=== PATIENT | male | born 1950 | race Caucasian/White ===

== ENCOUNTER 2017-05-06 13:13 | Inpatient (IN) | payer MEDICARE ==
[2017-05-06 13:13] VITALS: BMI 29.0
[2017-05-06] MEDS ORDERED: Magnesium Sulfate 2 gm/50 ml 2 GM/50 ML BAG ONE (13:24)
[2017-05-06] MEDS ORDERED: Albuterol-Ipratrop 3 mg / 0.5 (3 ml) UD ONE (13:24)
[2017-05-06] MEDS ORDERED: Albuterol-Ipratrop 3 mg / 0.5 (3 ml) UD INH STA ×2 (13:29→13:31)
[2017-05-06] MEDS: Magnesium Sulfate 2 GM in Sodium Chloride 0.9% 100 ML IVPB ONE ×2 (13:33→13:54)
[2017-05-06 13:39] LABS: BASO # 0.1 K/uL (0.0-0.2); BASO % 1.2 % (0.0-2.0); EOS # 0.7 K/uL (0.0-0.7); EOS % 5.6 % (0.0-4.0); HEMATOCRIT 49.7 % (35.0-51.0); LYMPH # 2.7 K/uL (1.0-4.3); LYMPH % 21.7 % (20.0-40.0); MEAN CELL VOLUME 82.6 fl (80.0-94.0); MEAN CORPUSCULAR HEMOGLOBIN 26.9 pg (27.0-31.0); MEAN CORPUSCULAR HGB CONC 32.6 g/dL (33.0-37.0); MEAN PLATELET VOLUME 10.6 fl (7.2-11.7); MONO # 1.1 K/uL (0.0-0.8); MONO % 8.7 % (0.0-10.0); NEUT # 7.8 K/uL (1.8-7.0); NEUT % 62.8 % (50.0-75.0); RED CELL DISTRIBUTION WIDTH 14.3 % (11.5-14.5); WHITE BLOOD COUNT 12.5 K/uL (4.8-10.8)
[2017-05-06 13:45] LABS: BLOOD UREA NITROGEN 22 mg/dl (9-20); CALCIUM 9.7 mg/dL (8.4-10.2); CARBON DIOXIDE 27 mmol/L (22-30); CHLORIDE 102 mmol/L (98-107); GFR AFRICAN-AMERICAN > 60; GLUCOSE,RANDOM 176 mg/dL (75-110); POTASSIUM 3.7 MMOL/L (3.6-5.0); SODIUM 143 mmol/l (132-148)
[2017-05-06] MEDS ORDERED: Magnesium Sulfate 2 gm/50 ml 2 GM/50 ML BAG IVPB ONE (13:45)
[2017-05-06 13:47] LABS: ABG ALLEN TEST YES; ARTERIAL BLOOD GAS HCO3 27.7 mmol/L (21-28); ARTERIAL BLOOD GAS O2 CAPACITY 22.5 mL/dL (16-24); ARTERIAL BLOOD GAS O2 CONTENT 22.4 ML/dL (15-23); ARTERIAL BLOOD GAS PH 7.38 (7.35-7.45); ARTERIAL BLOOD GAS PO2 184 mm/Hg (80-100); ARTERIAL BLOOD HGB O2 SAT 94.6 % (95.0-98.0); CARBOXYHEMOGLOBIN 2.2 % (0.5-1.5); HHB 0.5 % (0.0-5.0); METHEMOGLOBIN 2.7 % (0.0-3.0)
--- NOTE | 2017-05-06 13:48 | ED PDOC ---
HPI: SOB/CHF/COPD Time Seen by Provider: 05/06/17 13:18 Chief Complaint (Nursing): Shortness Of Breath Chief Complaint (Provider): Shortness of breath History Per: Patient History/Exam Limitations: no limitations Onset/Duration Of Symptoms: Worse Since (05/05/17 night) Associated Symptoms: denies: Fever Additional Complaint(s): Patient is a 66 y/o male with a past medical history of asthma, hypertension, diabetes, and hypercholesterolemia brought to the emergency department by EMS for shortness of breath and wheezing with associated cough that has worsened since last night with no alleviation of symptoms via nebulizer. Reports multiple prior hospital admissions for asthma but was never intubated. Denies fever or other complaints. PCP: Dr. Doan ([facility]) Past Medical History Reviewed: Historical Data, Nursing Documentation, Vital Signs Vital Signs: Last Vital Signs Temp 98.1 F 05/06/17 14:30 Pulse 137 H 05/06/17 14:29 Resp 24 05/06/17 13:55 BP 127/82 05/06/17 13:55 Pulse Ox 98 05/06/17 13:55 - Medical History PMH: Asthma, Diabetes, HTN, Hypercholesterolemia Denies: Chronic Kidney Disease - Surgical History Surgical History: No Surg Hx - Family History Family History: States: Unknown Family Hx - Social History Current smoker - smoking cessation education provided: No Ex-Smoker (has not smoked in the last 12 months): No Alcohol: None Drugs: Denies - Home Medications Home Medications: Ambulatory Orders Medication Instructions Recorded Albuterol 0.083% [Albuterol 0.083% 3 ml IH Q6H PRN #30 neb 03/18/16 Inhal Dary (2.5 mg/3 ml) UD] Albuterol HFA [Ventolin HFA 90 2 puff IH [id number] PRN #1 bottle 03/18/16 mcg/actuation (8 g)] predniSONE [predniSONE Tab] 50 mg PO DAILY #9 tab 04/26/16 Mometasone/Formoterol [Dulera 200 1 puff IH Q12H 04/28/16 Mcg/5 Mcg Inhaler] Ibuprofen 600 mg PO Q8H PRN #0 tab 05/01/16 - Allergies Allergies/Adverse Reactions: Allergies Allergy/AdvReac Type Severity Reaction Status Date / Time Penicillins Allergy RASH Verified 04/28/16 13:44 Review of Systems ROS Statement: Except As Marked, All Systems Reviewed And Found Negative Constitutional: Negative for: Fever Respiratory: Positive for: Cough, Shortness of Breath, Wheezing Physical Exam - Reviewed Nursing Documentation Reviewed: Yes Vital Signs Reviewed: Yes - Physical Exam Appears: Positive for: Non-toxic, Uncomfortable, In Acute Distress Head Exam: Positive for: ATRAUMATIC, NORMAL INSPECTION, NORMOCEPHALIC Skin: Positive for: Normal Color, Warm, Dry Eye Exam: Positive for: Normal appearance Neck: Positive for: Normal, Painless ROM, Supple Cardiovascular/Chest: Positive for: Tachycardia. Negative for: Murmur Respiratory: Positive for: Accessory Muscle Use, Wheezing (bilateral and diffuse ), Respiratory Distress, Other (tachypnea) Gastrointestinal/Abdominal: Positive for: Normal Exam, Soft. Negative for: Tenderness Extremity: Positive for: Normal ROM Neurologic/Psych: Positive for: Alert, Oriented (x3) - Laboratory Results Result Diagrams: 05/06/17 13:30 05/06/17 13:30 - ECG ECG Rhythm: Positive for: Normal QRS, Normal ST Segment, Sinus Tachycardia. Negative for: ST/T Changes Rate: 137 - Critical Care Total Time (In Min): 30 Nebulizer Treatments/Peak Flow - Duonebs Number of Bronchodilator Doses given?: 2 - Steroid Treatment Steroid: IV - Clinical Response Clinical Response: Improved Medical Decision Making Medical Decision Making: Time: 13:28 Initial Impression: Asthma exacerbation Differential diagnoses include but not limited to congestive heart failure and acute coronary syndrome. Rule out pneumonia. Initial plan: Labs EKG Chest X-Ray Duoneb 3 ml INH Magnesium Sulfate 2 gm Peak flow evaluation Reevaluation 14:00 Spoke with RADIATOR TESTER Braden Up who agrees to admit patient to observation. Scribe Attestation: Documented by Faviola Su, acting as a scribe for Julien Buchanan MD. Provider Scribe Attestation: All medical record entries made by the Scribe were at my direction and personally dictated by me. I have reviewed the chart and agree that the record accurately reflects my personal performance of the history, physical exam, medical decision making, and the department course for this patient. I have also personally directed, reviewed, and agree with the discharge instructions and disposition. Disposition - Clinical Impression Clinical Impression: Asthma exacerbation - Patient ED Disposition Is Patient to be Admitted: Yes Discussed With DrEmelia: Braden Up Doctor Will See Patient In The: Hospital Counseled Patient/Family Regarding: Studies Performed, Diagnosis - Disposition Disposition Time: 14:00 Condition: FAIR - Pt Status Changed To: Hospital Disposition Of: Observation - POA Present On Arrival: Poor Glycemic Control
--- NOTE | 2017-05-06 15:05 | RAD ---
PROCEDURE: CHEST RADIOGRAPH, 1 VIEW HISTORY: SOB COMPARISON: Comparison chest dated 04/28/2016. FINDINGS: LUNGS: Minor bibasilar atelectasis or scarring. PLEURA: No pneumothorax or pleural fluid seen. CARDIOVASCULAR: Normal. OSSEOUS STRUCTURES: No significant abnormalities. VISUALIZED UPPER ABDOMEN: Normal. OTHER FINDINGS: None. IMPRESSION: Minor bibasilar atelectasis or scarring.
[2017-05-06] MEDS: Albuterol 0.083% Inhal Sol (2.5 mg/3 mL) UD IH SCH ×2 (20:04→23:53)
[2017-05-06] MEDS: Fluticasone-Salmeterol 250-50mcg Diskus IH SCH (21:32)
[2017-05-06] MEDS: methylPREDNISolone 60 MG in Sodium Chloride 0.9% 50 ML IVPB SCH (21:32)
--- NOTE | 2017-05-06 22:34 | CARD ---
APPROVED REPORT EKG Measurement Heart [id number] <Conclusion> Sinus tachycardia Otherwise normal ECG
[2017-05-07] MEDS: Albuterol 0.083% Inhal Sol (2.5 mg/3 mL) UD IH SCH ×6 (05:00→23:31)
[2017-05-07 07:41] LABS: ALKALINE PHOSPHATASE 86 U/L (38-126); ALT/SGPT 29 U/L (21-72); AST/SGOT 24 U/L (17-59); BILIRUBIN,TOTAL 0.4 mg/dl (0.2-1.3); BLOOD UREA NITROGEN 33 mg/dl (9-20); CALCIUM 9.3 mg/dL (8.4-10.2); CARBON DIOXIDE 30 mmol/L (22-30); CHLORIDE 97 mmol/L (98-107); GFR AFRICAN-AMERICAN > 60; GLUCOSE,RANDOM 245 mg/dL (75-110); POTASSIUM 3.5 MMOL/L (3.6-5.0); SODIUM 138 mmol/l (132-148); TOTAL PROTEIN 7.8 G/DL (6.3-8.2)
[2017-05-07 08:00] LABS: BASO % 0.1 % (0.0-2.0); HEMATOCRIT 45.1 % (35.0-51.0); LYMPH # 0.9 K/uL (1.0-4.3); LYMPH % 6.8 % (20.0-40.0); MEAN CELL VOLUME 82.3 fl (80.0-94.0); MEAN CORPUSCULAR HEMOGLOBIN 26.4 pg (27.0-31.0); MEAN PLATELET VOLUME 10.8 fl (7.2-11.7); MONO # 0.6 K/uL (0.0-0.8); MONO % 4.8 % (0.0-10.0); NEUT % 88.3 % (50.0-75.0); PLATELET COUNT 201 K/uL (130-400); WHITE BLOOD COUNT 12.5 K/uL (4.8-10.8)
[2017-05-07] MEDS: Fluticasone-Salmeterol 250-50mcg Diskus IH SCH ×2 (08:54→21:46)
[2017-05-07] MEDS: Pravastatin Sodium 20 MG TAB PO SCH (08:55)
[2017-05-07] MEDS: methylPREDNISolone 60 MG in Sodium Chloride 0.9% 50 ML IVPB SCH ×2 (08:55→21:47)
[2017-05-07] MEDS: ATENOLOL PO SCH (08:55)
[2017-05-07] MEDS: CHLORTHALIDONE PO SCH (08:55)
[2017-05-07 10:42] LABS: BASOPHIL 1 % (0-2); NEUTROPHIL 94 % (42-75); TOTAL CELLS COUNTED 100
[2017-05-07] MEDS ORDERED: Potassium Chloride 20 mEq ER Tab PO ONE (10:45)
--- NOTE | 2017-05-07 10:51 | CP.PCM.HP ---
History of Present Illness - History of Present Illness History of Present Illness: pt comfortable at present, admitted of asthma exacerbation yesterday. states had s/s x 3-4 days [employer]. did not see pmd. still w/ exp wheezing at present, less chest throat tightness at present. bw noted. glucose and wbc elevated likely from steroids reported weight loss noted. pt had recent psa in office. Present on Admission - Present on Admission Any Indicators Present on Admission: Yes History of Uncontrolled Diabetes: Yes Review of Systems - Respiratory Respiratory: As Per HPI, Dyspnea on Exertion, Wheezing Past Patient History - Infectious Disease Hx of Infectious Diseases: None - Past Medical History & Family History Past Medical History?: Yes - Past Social History Smoking Status: Never Smoked - CARDIAC Hx Hypercholesterolemia: Yes Hx Hypertension: Yes - PULMONARY Hx Asthma: Yes - NEUROLOGICAL Hx Neurological Disorder: No - HEENT Hx HEENT Problems: No - RENAL Hx Chronic Kidney Disease: No - ENDOCRINE/METABOLIC Hx Diabetes Mellitus Type 2: Yes - HEMATOLOGICAL/ONCOLOGICAL Hx Blood Disorders: No - INTEGUMENTARY Hx Dermatological Problems: No - MUSCULOSKELETAL/RHEUMATOLOGICAL Hx Musculoskeletal Disorders: No Hx Falls: Yes (SYNCOPAL EPISODE TODAY) Other/Comment: last year fell at home head injury/sutures - GASTROINTESTINAL Hx Gastrointestinal Disorders: No - GENITOURINARY/GYNECOLOGICAL Hx Genitourinary Disorders: No - PSYCHIATRIC Hx Psychophysiologic Disorder: No Hx Substance Use: No - SURGICAL HISTORY Hx Surgeries: No - ANESTHESIA Hx Anesthesia: No Hx Anesthesia Reactions: No Hx Malignant Hyperthermia: No Has any member of the family had a problem w/ anesthesia?: No Meds Allergies/Adverse Reactions: Allergies Allergy/AdvReac Type Severity Reaction Status Date / Time Penicillins Allergy RASH Verified 04/28/16 13:44 Physical Exam - Constitutional Appears: Well, Non-toxic, No Acute Distress - Head Exam Head Exam: ATRAUMATIC, NORMAL INSPECTION, NORMOCEPHALIC - Eye Exam Eye Exam: EOMI, Normal appearance, PERRL Pupil Exam: NORMAL ACCOMODATION, PERRL - ENT Exam ENT Exam: Mucous Membranes Moist, Normal Exam - Neck Exam Neck exam: Positive for: Normal Inspection - Respiratory Exam Respiratory Exam: Wheezes, NORMAL BREATHING PATTERN - Cardiovascular Exam Cardiovascular Exam: REGULAR RHYTHM, RRR, +S1, +S2 - GI/Abdominal Exam GI & Abdominal Exam: Normal Bowel Sounds, Soft. absent: Tenderness - Extremities Exam Extremities exam: Positive for: full ROM, normal capillary refill, normal inspection, pedal pulses present - Back Exam Back exam: NORMAL INSPECTION - Neurological Exam Neurological exam: Alert, CN II-XII Intact, Normal Gait, Oriented x3, Reflexes Normal - Psychiatric Exam Psychiatric exam: Normal Affect, Normal Mood - Skin Skin Exam: Dry, Intact, Normal Color, Warm Results - Vital Signs Recent Vital Signs: Last Vital Signs Temp 98.1 F 05/07/17 08:00 Pulse 94 H 05/07/17 08:00 Resp 18 05/07/17 08:00 BP 125/78 05/07/17 08:00 Pulse Ox 96 05/07/17 08:00 - Labs Result Diagrams: 05/07/17 05:30 05/07/17 05:30 Labs: Laboratory Results - last 24 hr 05/07/17 05/07/17 05/07/17 05:30 05:30 05:33 WBC 12.5 H RBC 5.47 Hgb 14.4 Hct 45.1 MCV 82.3 MCH 26.4 L MCHC 32.0 L RDW 14.0 Plt Count 201 MPV 10.8 Neut % (Auto) 88.3 H Lymph % (Auto) 6.8 L [place] % (Auto) 4.8 Eos % (Auto) 0.0 Baso % (Auto) 0.1 Neut # 11.0 H Lymph # 0.9 L [place] # 0.6 Eos # 0.0 Baso # 0.0 Neutrophils % (Manual) 94 H Band Neutrophils % 1 Lymphocytes % (Manual) 2 L Monocytes % (Manual) 2 Basophils % (Manual) 1 Platelet Estimate Normal RBC Morphology Normal Sodium 138 Potassium 3.5 L Chloride 97 L Carbon Dioxide 30 Anion Gap 15 BUN 33 H Creatinine 1.1 Est GFR ( Amer) > 60 Est GFR (Non-Af Amer) > 60 POC Glucose (mg/dL) 245 H Random Glucose 245 H Calcium 9.3 Total Bilirubin 0.4 AST 24 ALT 29 Alkaline Phosphatase 86 Total Protein 7.8 Albumin 3.9 Globulin 3.9 Albumin/Globulin Ratio 1.0 Assessment & Plan (1) Asthma exacerbation Assessment and Plan: albuterol solumedrol given mag in er cont dulera tele obs Status: Acute (2) DVT prophylaxis Assessment and Plan: scd and ae hose ambulation Status: Acute (3) DM2 (diabetes mellitus, type 2) Assessment and Plan: fsbg, home meds elevated glucose likely from steroids Status: Chronic (4) Weight loss Assessment and Plan: recent psa wnl, outpt gi consult. will monitor Status: Acute Decision To Admit - Pt Status Changed To: Hospital Disposition Of: Observation - . Bed Request Type: Telemetry Admitting Physician: Kalia Doan
[2017-05-08] MEDS: Albuterol 0.083% Inhal Sol (2.5 mg/3 mL) UD IH SCH ×5 (03:16→19:25)
[2017-05-08 07:15] LABS: BASO % 0.1 % (0.0-2.0); LYMPH % 5.4 % (20.0-40.0); MEAN CELL VOLUME 82.3 fl (80.0-94.0); MEAN CORPUSCULAR HEMOGLOBIN 26.4 pg (27.0-31.0); MEAN PLATELET VOLUME 10.7 fl (7.2-11.7); MONO # 0.7 K/uL (0.0-0.8); NEUT # 16.6 K/uL (1.8-7.0); NEUT % 90.5 % (50.0-75.0); PLATELET COUNT 199 K/uL (130-400); RED CELL DISTRIBUTION WIDTH 13.9 % (11.5-14.5); WHITE BLOOD COUNT 18.3 K/uL (4.8-10.8)
[2017-05-08 07:20] LABS: ALKALINE PHOSPHATASE 80 U/L (38-126); ALT/SGPT 30 U/L (21-72); AST/SGOT 23 U/L (17-59); BILIRUBIN,TOTAL 0.4 mg/dl (0.2-1.3); BLOOD UREA NITROGEN 37 mg/dl (9-20); CALCIUM 9.2 mg/dL (8.4-10.2); CARBON DIOXIDE 28 mmol/L (22-30); CHLORIDE 99 mmol/L (98-107); GFR AFRICAN-AMERICAN > 60; GLUCOSE,RANDOM 245 mg/dL (75-110); POTASSIUM 4.4 MMOL/L (3.6-5.0); SODIUM 136 mmol/l (132-148); TOTAL PROTEIN 7.3 G/DL (6.3-8.2)
--- NOTE | 2017-05-08 07:57 | CP.PCM.PN ---
Subjective - Date & Time of Evaluation Date of Evaluation: 05/08/17 Time of Evaluation: 07:55 - Subjective Subjective: pt comfortable in bed. no distress. nof /c, n/v/d. less wheezing/chest tightness. elev wbc likely r/t steroids. Objective - Vital Signs/Intake and Output Vital Signs (last 24 hours): Temp Pulse Resp BP Pulse Ox 97.8 F 86 20 104/68 95 05/08/17 05:04 05/08/17 05:04 05/08/17 05:04 05/08/17 05:04 05/08/17 05:04 - Medications Medications: Current Medications Albuterol Sulfate (Albuterol 0.083% Inhal Dary (2.5 Mg/3 Ml) Ud) 2.5 mg IH RQ4 [facility] Last Admin: 05/08/17 07:47 Dose: 2.5 mg Home Med (Atenolol/Chlorthalidone [Atenolol-Chlorthalidone 50-25]) 50.25 mg PO DAILY [facility] Last Admin: 05/07/17 08:55 Dose: 50.25 mg Methylprednisolone 60 mg/ (Sodium Chloride) 50 mls @ 100 mls/hr IVPB Q12 [facility] Last Admin: 05/07/17 21:47 Dose: 100 mls/hr Metformin HCl (Glucophage) 500 mg PO DAILY [facility] Last Admin: 05/07/17 08:55 Dose: 500 mg Pravastatin Sodium (Pravachol) 20 mg PO DAILY [facility] Last Admin: 05/07/17 08:55 Dose: 20 mg Fluticasone/Salmeterol (Advair Diskus 250/50) 1 puff IH Q12H [facility] Last Admin: 05/07/17 21:46 Dose: 1 puff - Labs Labs: 05/08/17 07:05 05/08/17 07:05 - Constitutional Appears: Well, Non-toxic, No Acute Distress - Head Exam Head Exam: ATRAUMATIC, NORMAL INSPECTION, NORMOCEPHALIC - Eye Exam Eye Exam: EOMI, Normal appearance, PERRL Pupil Exam: NORMAL ACCOMODATION, PERRL - ENT Exam ENT Exam: Mucous Membranes Moist, Normal Exam - Neck Exam Neck Exam: Full ROM, Normal Inspection. absent: Lymphadenopathy - Respiratory Exam Respiratory Exam: Wheezes, NORMAL BREATHING PATTERN Additional comments: better airation - Cardiovascular Exam Cardiovascular Exam: REGULAR RHYTHM, RRR, +S1, +S2. absent: Murmur - GI/Abdominal Exam GI & Abdominal Exam: Soft, Normal Bowel Sounds. absent: Tenderness - Extremities Exam Extremities Exam: Full ROM, Normal Capillary Refill, Normal Inspection. absent : Joint Swelling, Pedal Edema - Back Exam Back Exam: NORMAL INSPECTION - Neurological Exam Neurological Exam: Alert, Awake, CN II-XII Intact, Normal Gait, Oriented x3 - Psychiatric Exam Psychiatric exam: Normal Affect, Normal Mood - Skin Skin Exam: Dry, Intact, Normal Color, Warm Assessment and Plan (1) Asthma exacerbation Assessment & Plan: cont albuterol steroids ?? dc today Status: Acute (2) DVT prophylaxis Assessment & Plan: scda nda e hose ambulation Status: Acute (3) DM2 (diabetes mellitus, type 2) Assessment & Plan: fsbg, home meds hold insulin for now as pt is naive, likely elev glucose from steroids Status: Chronic (4) Weight loss Assessment & Plan: outpt f/u Status: Acute
[2017-05-08 08:43] LABS: NEUTROPHIL 92 % (42-75); TOTAL CELLS COUNTED 100
[2017-05-08 08:44] LABS: LARGE PLATELETS PRESENT
[2017-05-08] MEDS: Fluticasone-Salmeterol 250-50mcg Diskus IH SCH ×2 (09:11→22:00)
[2017-05-08] MEDS: ATENOLOL PO SCH (09:12)
[2017-05-08] MEDS: CHLORTHALIDONE PO SCH (09:12)
[2017-05-08] MEDS: methylPREDNISolone 60 MG in Sodium Chloride 0.9% 50 ML IVPB SCH ×2 (09:12→22:09)
[2017-05-08] MEDS: Pravastatin Sodium 20 MG TAB PO SCH (09:12)
[2017-05-09] MEDS: Albuterol 0.083% Inhal Sol (2.5 mg/3 mL) UD IH SCH ×4 (00:37→11:01)
[2017-05-09 04:59] VITALS: RESP 18
--- NOTE | 2017-05-09 08:21 | CP.PCM.PN ---
Subjective - Date & Time of Evaluation Date of Evaluation: 05/09/17 Time of Evaluation: 08:20 - Subjective Subjective: pt doing well in bed, comfortable at rest. still w/ mild tightness in throat. no f/c, n/v/d. no wheezing today. mild dyspnea on exertion yesterday Objective - Vital Signs/Intake and Output Vital Signs (last 24 hours): Temp Pulse Resp BP Pulse Ox 97.9 F 69 18 99/54 L 98 05/09/17 04:59 05/09/17 04:59 05/09/17 04:59 05/09/17 04:59 05/09/17 04:59 Intake and Output: 05/09/17 05/09/17 06:59 18:59 Output Total 300 Balance -300 - Medications Medications: Current Medications Albuterol Sulfate (Albuterol 0.083% Inhal Dary (2.5 Mg/3 Ml) Ud) 2.5 mg IH RQ4 [facility] Last Admin: 05/09/17 08:10 Dose: 2.5 mg Home Med (Atenolol/Chlorthalidone [Atenolol-Chlorthalidone 50-25]) 50.25 mg PO DAILY [facility] Last Admin: 05/08/17 09:12 Dose: 50.25 mg Methylprednisolone 60 mg/ (Sodium Chloride) 50 mls @ 100 mls/hr IVPB Q12 [facility] Last Admin: 05/08/17 22:09 Dose: 100 mls/hr Metformin HCl (Glucophage) 500 mg PO DAILY [facility] Last Admin: 05/08/17 09:12 Dose: 500 mg Pravastatin Sodium (Pravachol) 20 mg PO DAILY [facility] Last Admin: 05/08/17 09:12 Dose: 20 mg Fluticasone/Salmeterol (Advair Diskus 250/50) 1 puff IH Q12H [facility] Last Admin: 05/08/17 22:00 Dose: 1 puff - Labs Labs: 05/08/17 07:05 05/08/17 07:05 - Constitutional Appears: Well, Non-toxic, No Acute Distress - Head Exam Head Exam: ATRAUMATIC, NORMAL INSPECTION, NORMOCEPHALIC - Eye Exam Eye Exam: EOMI, Normal appearance, PERRL Pupil Exam: NORMAL ACCOMODATION, PERRL - ENT Exam ENT Exam: Mucous Membranes Moist, Normal Exam - Neck Exam Neck Exam: Full ROM, Normal Inspection. absent: Lymphadenopathy - Respiratory Exam Respiratory Exam: Clear to Ausculation Bilateral, NORMAL BREATHING PATTERN - Cardiovascular Exam Cardiovascular Exam: REGULAR RHYTHM, RRR, +S1, +S2. absent: Murmur - GI/Abdominal Exam GI & Abdominal Exam: Soft, Normal Bowel Sounds. absent: Tenderness - Extremities Exam Extremities Exam: Full ROM, Normal Capillary Refill, Normal Inspection. absent : Joint Swelling, Pedal Edema - Back Exam Back Exam: NORMAL INSPECTION - Neurological Exam Neurological Exam: Alert, Awake, CN II-XII Intact, Normal Gait, Oriented x3 - Psychiatric Exam Psychiatric exam: Normal Affect, Normal Mood - Skin Skin Exam: Dry, Intact, Normal Color, Warm Assessment and Plan (1) Asthma exacerbation Status: Acute (2) DVT prophylaxis Status: Acute (3) DM2 (diabetes mellitus, type 2) Status: Chronic (4) Weight loss Status: Acute - Assessment and Plan (Free Text) Assessment: (1) Asthma exacerbation Assessment & Plan: cont albuterol steroids ?? dc today Status: Acute (2) DVT prophylaxis Assessment & Plan: scda nda e hose ambulation Status: Acute (3) DM2 (diabetes mellitus, type 2) Assessment & Plan: fsbg, home meds hold insulin for now as pt is naive, likely elev glucose from steroids Status: Chronic (4) Weight loss Assessment & Plan: outpt f/u Status: Acute dc if exercise tolerant
[2017-05-09] MEDS: Fluticasone-Salmeterol 250-50mcg Diskus IH SCH (08:38)
[2017-05-09] MEDS: ATENOLOL PO SCH (08:38)
[2017-05-09] MEDS: Pravastatin Sodium 20 MG TAB PO SCH (08:38)
[2017-05-09] MEDS: CHLORTHALIDONE PO SCH (08:38)
[2017-05-09] MEDS: methylPREDNISolone 60 MG in Sodium Chloride 0.9% 50 ML IVPB SCH (08:39)
[2017-05-09 09:03] LABS: BASO % 0.1 % (0.0-2.0); HEMATOCRIT 45.4 % (35.0-51.0); LYMPH # 1.2 K/uL (1.0-4.3); LYMPH % 8.2 % (20.0-40.0); MEAN CELL VOLUME 82.1 fl (80.0-94.0); MEAN CORPUSCULAR HEMOGLOBIN 26.3 pg (27.0-31.0); MEAN CORPUSCULAR HGB CONC 32.1 g/dL (33.0-37.0); MONO # 0.9 K/uL (0.0-0.8); MONO % 6.2 % (0.0-10.0); NEUT # 12.5 K/uL (1.8-7.0); NEUT % 85.5 % (50.0-75.0); RED CELL DISTRIBUTION WIDTH 13.8 % (11.5-14.5); WHITE BLOOD COUNT 14.7 K/uL (4.8-10.8)
[2017-05-09 09:20] LABS: BLOOD UREA NITROGEN 26 mg/dl (9-20); CARBON DIOXIDE 28 mmol/L (22-30); CHLORIDE 96 mmol/L (98-107); GLUCOSE,RANDOM 239 mg/dL (75-110)
[2017-05-09 09:21] LABS: BILIRUBIN,TOTAL 0.5 mg/dl (0.2-1.3); CALCIUM 9.2 mg/dL (8.4-10.2); TOTAL PROTEIN 7.2 G/DL (6.3-8.2)
[2017-05-09 09:39] LABS: ALB/GLOB RATIO 1.1 (1.0-2.1); ALKALINE PHOSPHATASE 83 U/L (38-126); ALT/SGPT 32 U/L (21-72); AST/SGOT 22 U/L (17-59); GFR AFRICAN-AMERICAN > 60; POTASSIUM 4.6 MMOL/L (3.6-5.0); SODIUM 134 mmol/l (132-148)
[2017-05-09 12:13] VITALS: BP 127/72; PULSE 76; TEMP 98.2; O2SAT 93
--- NOTE | 2017-05-09 12:40 | CP.PCM.DIS ---
Provider - Provider Date of Admission: 05/07/17 14:02 Attending physician: Kalia Doan MD Time Spent in preparation of Discharge (in minutes): 15 Diagnosis - Discharge Diagnosis (1) Asthma exacerbation Status: Acute (2) DVT prophylaxis Status: Acute (3) DM2 (diabetes mellitus, type 2) Status: Chronic (4) Weight loss Status: Acute Hospital Course - Lab Results Lab Results: Most Recent Lab Values WBC 14.7 K/uL (4.8-10.8) H 05/09/17 08:15 RBC 5.53 Mil/uL (4.40-5.90) 05/09/17 08:15 Hgb 14.6 g/dL (12.0-18.0) 05/09/17 08:15 Hct 45.4 % (35.0-51.0) 05/09/17 08:15 MCV 82.1 fl (80.0-94.0) 05/09/17 08:15 MCH 26.3 pg (27.0-31.0) L 05/09/17 08:15 MCHC 32.1 g/dL (33.0-37.0) L 05/09/17 08:15 RDW 13.8 % (11.5-14.5) 05/09/17 08:15 Plt Count 187 K/uL (130-400) 05/09/17 08:15 MPV 11.0 fl (7.2-11.7) 05/09/17 08:15 Neut % (Auto) 85.5 % (50.0-75.0) H 05/09/17 08:15 Lymph % (Auto) 8.2 % (20.0-40.0) L 05/09/17 08:15 [place] % (Auto) 6.2 % (0.0-10.0) 05/09/17 08:15 Eos % (Auto) 0.0 % (0.0-4.0) 05/09/17 08:15 Baso % (Auto) 0.1 % (0.0-2.0) 05/09/17 08:15 Neut # 12.5 K/uL (1.8-7.0) H 05/09/17 08:15 Lymph # 1.2 K/uL (1.0-4.3) 05/09/17 08:15 [place] # 0.9 K/uL (0.0-0.8) H 05/09/17 08:15 Eos # 0.0 K/uL (0.0-0.7) 05/09/17 08:15 Baso # 0.0 K/uL (0.0-0.2) 05/09/17 08:15 Neutrophils % (Manual) 92 % (42-75) H 05/08/17 07:05 Band Neutrophils % 1 % (0-2) 05/07/17 05:30 Lymphocytes % (Manual) 5 % (20-50) L 05/08/17 07:05 Monocytes % (Manual) 3 % (0-10) 05/08/17 07:05 Basophils % (Manual) 1 % (0-2) 05/07/17 05:30 Platelet Estimate Normal (NORMAL) 05/08/17 07:05 Large Platelets Present 05/08/17 07:05 RBC Morphology Normal (NORMAL) 05/08/17 07:05 pCO2 51 mm/Hg (35-45) H 05/06/17 13:29 pO2 184 mm/Hg (80-100) H 05/06/17 13:29 HCO3 27.7 mmol/L (21-28) 05/06/17 13:29 ABG pH 7.38 (7.35-7.45) 05/06/17 13:29 ABG Total CO2 31.8 mmol/L (22-28) H 05/06/17 13:29 ABG O2 Saturation 99.5 % (95-98) H 05/06/17 13:29 ABG O2 Content 22.4 ML/dL (15-23) 05/06/17 13:29 ABG Base Excess 3.7 mmol/L (-2.0-3.0) H 05/06/17 13:29 ABG Hemoglobin 16.6 g/dL (11.7-17.4) 05/06/17 13:29 ABG Carboxyhemoglobin 2.2 % (0.5-1.5) H 05/06/17 13:29 POC ABG HHb (Measured) 0.5 % (0.0-5.0) 05/06/17 13:29 ABG Methemoglobin 2.7 % (0.0-3.0) 05/06/17 13:29 ABG O2 Capacity 22.5 mL/dL (16-24) 05/06/17 13:29 [place] Test Yes 05/06/17 13:29 A-a O2 Difference 2.0 mm/Hg 05/06/17 13:29 Hgb O2 Saturation 94.6 % (95.0-98.0) L 05/06/17 13:29 FiO2 35.0 % 05/06/17 13:29 Sodium 134 mmol/l (132-148) 05/09/17 08:15 Potassium 4.6 MMOL/L (3.6-5.0) 05/09/17 08:15 Chloride 96 mmol/L (98-107) L 05/09/17 08:15 Carbon Dioxide 28 mmol/L (22-30) 05/09/17 08:15 Anion Gap 15 (10-20) 05/09/17 08:15 BUN 26 mg/dl (9-20) H 05/09/17 08:15 Creatinine 0.9 mg/dL (0.8-1.5) 05/09/17 08:15 Est GFR ( Amer) > 60 05/09/17 08:15 Est GFR (Non-Af Amer) > 60 05/09/17 08:15 POC Glucose (mg/dL) 342 mg/dL (65-110) H 05/09/17 11:08 Random Glucose 239 mg/dL (75-110) H 05/09/17 08:15 Calcium 9.2 mg/dL (8.4-10.2) 05/09/17 08:15 Total Bilirubin 0.5 mg/dl (0.2-1.3) 05/09/17 08:15 AST 22 U/L (17-59) 05/09/17 08:15 ALT 32 U/L (21-72) 05/09/17 08:15 Alkaline Phosphatase 83 U/L (38-126) 05/09/17 08:15 Troponin I < 0.0120 ng/mL (0.00-0.120) 05/06/17 13:30 Total Protein 7.2 G/DL (6.3-8.2) 05/09/17 08:15 Albumin 3.7 g/dL (3.5-5.0) 05/09/17 08:15 Globulin 3.5 gm/dL (2.2-3.9) 05/09/17 08:15 Albumin/Globulin Ratio 1.1 (1.0-2.1) 05/09/17 08:15 Discharge Exam - Head Exam Head Exam: ATRAUMATIC, NORMAL INSPECTION, NORMOCEPHALIC Discharge Plan - Discharge Medications Prescriptions: Albuterol HFA [Ventolin HFA 90 mcg/actuation (8 g)] 2 puff IH [id number] PRN #1 bottle PRN Reason: Shortness Of Breath Albuterol 0.083% [Albuterol 0.083% Inhal Dary (2.5 mg/3 ml) UD] 2.5 mg IH RQ4 # 100 unit predniSONE [predniSONE Tab] 50 mg PO DAILY #15 tab - Follow Up Plan Condition: FAIR Disposition: HOME/ ROUTINE Additional Instructions: per rn pt tolerating ambulation well w/ minimal dyspnea. final dx- asthma exacerbation f/u rmg in am, rted prn, meds per med rec escribed prednisone
== END 2017-05-09 15:40 | disposition home or self-care (01) | DRG 203 ==
LOC: H.ER 13:13 → H.ERHOLD 14:03 → H.TEL 17:26 → OBSVTOIN 05-07 14:02 → H.TEL 05-08 11:20
PROVIDERS: ADMIT Family Medicine; ATTEND Family Medicine
DX: J45.901 Unspecified asthma with (acute) exacerbation (principal); E11.65 Type 2 diabetes mellitus with hyperglycemia; I10 Essential (primary) hypertension; Z88.0 Allergy status to penicillin; E78.00 Pure hypercholesterolemia, unspecified; T38.0X5A Adverse effect of glucocorticoids and synthetic analogues, initial encounter; R63.4 Abnormal weight loss; Z68.23 Body mass index [BMI] 23.0-23.9, adult

== ENCOUNTER 2017-06-01 22:15 | Inpatient (IN) | payer MEDICARE ==
[2017-06-01] MEDS ORDERED: Magnesium Sulfate 2 gm/50 ml 2 GM/50 ML BAG ONE (22:27)
[2017-06-01] MEDS ORDERED: Albuterol-Ipratrop 3 mg / 0.5 (3 ml) UD ONE (22:27)
[2017-06-01 22:50] LABS: BASO # 0.3 K/uL (0.0-0.2); BASO % 2.7 % (0.0-2.0); EOS # 0.6 K/uL (0.0-0.7); EOS % 5.8 % (0.0-4.0); HEMATOCRIT 47.9 % (35.0-51.0); LYMPH % 36.2 % (20.0-40.0); MEAN CORPUSCULAR HEMOGLOBIN 26.5 pg (27.0-31.0); MEAN PLATELET VOLUME 10.9 fl (7.2-11.7); MONO # 1.6 K/uL (0.0-0.8); MONO % 14.2 % (0.0-10.0); NEUT # 4.5 K/uL (1.8-7.0); NEUT % 41.1 % (50.0-75.0); RED CELL DISTRIBUTION WIDTH 13.5 % (11.5-14.5); WHITE BLOOD COUNT 11.1 K/uL (4.8-10.8)
[2017-06-01] MEDS ORDERED: Albuterol-Ipratrop 3 mg / 0.5 (3 ml) UD INH STA (22:54)
[2017-06-01] MEDS ORDERED: Magnesium Sulfate 2 gm/50 ml 2 GM/50 ML BAG IVPB ONE (22:54)
[2017-06-01 22:59] LABS: ALKALINE PHOSPHATASE 112 U/L (38-126); ALT/SGPT 27 U/L (21-72); AST/SGOT 34 U/L (17-59); BILIRUBIN,TOTAL 0.6 mg/dl (0.2-1.3); BLOOD UREA NITROGEN 26 mg/dl (9-20); CALCIUM 9.3 mg/dL (8.4-10.2); CARBON DIOXIDE 31 mmol/L (22-30); CHLORIDE 99 mmol/L (98-107); GFR AFRICAN-AMERICAN > 60; GLUCOSE,RANDOM 271 mg/dL (75-110); MAGNESIUM 1.9 MG/DL (1.6-2.3); PHOSPHOROUS 4.6 mg/dl (2.5-4.5); SODIUM 145 mmol/l (132-148); TOTAL PROTEIN 8.3 G/DL (6.3-8.2)
[2017-06-01 23:01] LABS: PARTIAL THROMBOPLASTIN TIME 31.9 Seconds (25.6-37.1)
--- NOTE | 2017-06-01 23:22 | ED PDOC ---
HPI: Asthma Time Seen by Provider: 06/01/17 22:33 Chief Complaint (Nursing): Respiratory Distress Chief Complaint (Provider): difficulty breathing History Per: Family Onset/Duration Of Symptoms: Days (1 day), Persistent Associated Symptoms: Dyspnea, Cough, Chest Pain. denies: Sputum Production, Fever Past Medical History Reviewed: Historical Data, Nursing Documentation, Vital Signs Vital Signs: Last Vital Signs Temp 98.2 F 06/01/17 22:17 Pulse 104 H 06/01/17 22:51 Resp 17 06/01/17 23:11 BP 131/77 06/01/17 22:51 Pulse Ox 100 06/01/17 22:51 - Medical History PMH: Asthma, Diabetes, HTN, Hypercholesterolemia Denies: Chronic Kidney Disease - Family History Family History: States: Unknown Family Hx - Social History Ex-Smoker (has not smoked in the last 12 months): Yes - Home Medications Home Medications: Ambulatory Orders Medication Instructions Recorded Albuterol 0.083% [Albuterol 0.083% 3 ml IH Q6H PRN #30 neb 03/18/16 Inhal Dary (2.5 mg/3 ml) UD] Atenolol/Chlorthalidone 50.25 mg PO DAILY 05/06/17 [Atenolol-Chlorthalidone 50-25] Metformin HCl [Fortamet] 500 mg PO DAILY 05/06/17 Pravastatin Sodium [Pravachol] 20 mg PO DAILY 05/06/17 Albuterol HFA [Ventolin HFA 90 2 puff IH [id number] PRN #1 bottle 05/07/17 mcg/actuation (8 g)] Albuterol HFA [Ventolin HFA 90 2 puff INH PRN PRN 06/01/17 mcg/actuation (8 g)] Fluticasone/Salmeterol [Advair 2 puff INH PRN PRN 06/01/17 250-50 Diskus] - Allergies Allergies/Adverse Reactions: Allergies Allergy/AdvReac Type Severity Reaction Status Date / Time Penicillins Allergy RASH Verified 06/01/17 22:52 Review of Systems ROS Statement: Except As Marked, All Systems Reviewed And Found Negative (and as per HPI) Constitutional: Negative for: Fever, Chills Cardiovascular: Positive for: Chest Pain, Light Headedness. Negative for: Palpitations, Edema Respiratory: Positive for: Shortness of Breath, Pleuritic Pain, Wheezing Gastrointestinal: Negative for: Nausea, Vomiting Physical Exam - Reviewed Nursing Documentation Reviewed: Yes Vital Signs Reviewed: Yes - Physical Exam Appears: Positive for: Uncomfortable, In Acute Distress Head Exam: Positive for: ATRAUMATIC, NORMOCEPHALIC Skin: Positive for: Warm, Dry Eye Exam: Positive for: EOMI, PERRL ENT: Positive for: Other (tacky muc membranes) Neck: Positive for: Painless ROM, Supple Cardiovascular/Chest: Positive for: Tachycardia. Negative for: Murmur Respiratory: Positive for: Decreased Breath Sounds, Accessory Muscle Use, Wheezing, Respiratory Distress, Other (poor air movement) Gastrointestinal/Abdominal: Positive for: Soft. Negative for: Tenderness Back: Positive for: Normal Inspection. Negative for: Vertebral Tenderness Extremity: Negative for: Pedal Edema, Deformity Lymphatic: Negative for: Adenopathy Neurologic/Psych: Positive for: Alert, Mood/Affect (anxious affect). Negative for: Motor/Sensory Deficits - Laboratory Results Result Diagrams: 06/01/17 22:40 06/02/17 05:30 - ECG O2 Sat by Pulse Oximetry: 100 - Progress ED Course And Treament: On arrival pt appeared to be in severe distress and had already been given IV solumedrol and nebulizers en route. Addn'l magnesium, continued nebs given. Concern for continued worsening and pt reporting his symptoms felt severe, so terbutaline also given. Vapotherm also initiated for pt. 1 hour post treatment, pt reported that he started to feel better. Still having diffuse expiratory wheeze with retractions and increased ins/exp ratio. Placed in ICU for close respiratory evaluation HE Millan [employer] for [place] and Dr Felder for ICU. - Critical Care Total Time (In Min): 30 Documented Critical Care: Time excludes all time spent performint seperately billable procedures Disposition - Clinical Impression Clinical Impression: Status asthmaticus Counseled Patient/Family Regarding: Studies Performed, Diagnosis, Need For Followup - Disposition Disposition Time: 23:00 Condition: CRITICAL - Pt Status Changed To: Hospital Disposition Of: Inpatient - Admit Certification Admit to Inpatient:: After my assessment, the patient will require hospitalization for at least two midnights. This is because of the severity of symptoms shown, intensity of services needed, and/or the medical risk in this patient being treated as an outpatient. - POA Present On Arrival: Poor Glycemic Control
--- NOTE | 2017-06-01 23:47 | CP.PCM.CON ---
History of Present Illness - History of Present Illness History of Present Illness: PCP: Kalia Doan MD Reason for Consult: Critical Care Management Chief complaint: SOB/Respiratory Distress The patient was seen and examined in the ED HPI: The hx was obtained from the Patient , his family and review of the medical records. He is a 66 years old male with hx of HTN, DM II and Asthma who was brought to the ED because of one day of SOB with wheezes and severe respiratory distress. He had used his Albuterol at home but without improvement. In the ED he was using Accessory muscles of respiration and could not complete sentenses. He referred some tightness at the upper chest but no nausea, vomits, fever,nor significant cough. he was treated with Solu-medrol and Duoneb en route from home, and Albuterol and Terbutaline each twice in the ED along with Magnesium Sulfate. Because of only modest improvement his is being admitted for further management. PMH: Asthma, DM II, HTN, HLD; Subdural hematoma; Subaracnoid hemorrhage, left temporal bone fracture; Ruptured Left tympanic membrane PSH: No Surgical hx SH: former Smoker; Quit drinking Alcohol; No illegal drug use; Live with family FH: States: Unknown Family Hx Allergies: Penicillin Medications: Reviewed Review of Systems - Constitutional Constitutional: absent: Anorexia, Chills, Fever, Headache - EENT Eyes: absent: Diplopia, Floaters, Requires Corrective Lenses, Sees Flashes Ears: absent: Decreased Hearing, Ear Pain, Tinnitus Nose/Mouth/Throat: absent: Epistaxis, Nasal Congestion, Nasal Obstruction, Sinus Pain, Sinus Pressure - Cardiovascular Cardiovascular: Chest Pain, Dyspnea. absent: Edema, Lightheadedness, Pedal Edema - Respiratory Respiratory: Cough, Dyspnea, Wheezing. absent: Stridor, Chest Congestion - Gastrointestinal Gastrointestinal: absent: Abdominal Pain, Constipation, Diarrhea, Nausea, Vomiting - Genitourinary Genitourinary: absent: Dysuria, Flank Pain, Hematuria, Urinary Frequency - Musculoskeletal Musculoskeletal: absent: Abnormal Gait, Arthralgias, Back Pain, Muscle Weakness - Integumentary Integumentary: absent: Rash, Skin Pain, Skin Ulcer, Sores, Striae, Swelling - Neurological Neurological: absent: Confusion, Disequilibrium, Dizziness, Focal Weakness, Headaches, Paresthesias, Weakness - Psychiatric Psychiatric: Anxiety. absent: Confusion, Depression, Panic Attacks - Endocrine Endocrine: absent: Palpitations, Polydipsia, Polyphagia, Polyuria - Hematologic/Lymphatic Hematologic: absent: Easy Bleeding, Easy Bruising Past Patient History - Infectious Disease Hx of Infectious Diseases: None - Past Medical History & Family History Past Medical History?: Yes - Past Social History Smoking Status: Former Smoker Chewing Tobacco Use: Yes Cigar Use: Yes Alcohol: None Drugs: Denies Home Situation {Lives}: With Family - CARDIAC Hx Hypercholesterolemia: Yes Hx Hypertension: Yes - PULMONARY Hx Asthma: Yes - NEUROLOGICAL Hx Neurological Disorder: No - HEENT Hx HEENT Problems: No - RENAL Hx Chronic Kidney Disease: No - ENDOCRINE/METABOLIC Hx Diabetes Mellitus Type 2: Yes - HEMATOLOGICAL/ONCOLOGICAL Hx Blood Disorders: No - INTEGUMENTARY Hx Dermatological Problems: No - MUSCULOSKELETAL/RHEUMATOLOGICAL Hx Musculoskeletal Disorders: No Hx Falls: Yes (SYNCOPAL EPISODE TODAY) Other/Comment: last year fell at home head injury/sutures - GASTROINTESTINAL Hx Gastrointestinal Disorders: No - GENITOURINARY/GYNECOLOGICAL Hx Genitourinary Disorders: No - PSYCHIATRIC Hx Psychophysiologic Disorder: No Hx Substance Use: No - SURGICAL HISTORY Hx Surgeries: No - ANESTHESIA Hx Anesthesia: No Hx Anesthesia Reactions: No Hx Malignant Hyperthermia: No Meds Allergies/Adverse Reactions: Allergies Allergy/AdvReac Type Severity Reaction Status Date / Time Penicillins Allergy RASH Verified 06/01/17 22:52 - Medications Medications: Current Medications Magnesium Sulfate (Magnesium Sulfate 2 Gm/50 Ml Water) 2 gm in 50 mls @ 50 mls/ hr IVPB ONCE ONE PRN Reason: 2 GM/HR Stop: 06/01/17 23:53 Last Admin: 06/01/17 22:30 Dose: 50 mls/hr Physical Exam - Constitutional Appears: In Acute Distress - Head Exam Head Exam: ATRAUMATIC, NORMAL INSPECTION, NORMOCEPHALIC - Eye Exam Eye Exam: EOMI, Normal appearance Pupil Exam: NORMAL ACCOMODATION - ENT Exam ENT Exam: Mucous Membranes Moist, Normal Exam - Neck Exam Neck exam: Positive for: Full Rom, Normal Inspection. Negative for: Lymphadenopathy, Tenderness - Respiratory Exam Respiratory Exam: Accessory Muscle Use, Rhonchi, Wheezes. absent: Rales - Cardiovascular Exam Cardiovascular Exam: REGULAR RHYTHM, RRR, +S1, +S2. absent: Gallop, JVD - GI/Abdominal Exam GI & Abdominal Exam: Normal Bowel Sounds, Soft. absent: Mass, Organomegaly, Tenderness - Rectal Exam Rectal Exam: Deferred - Extremities Exam Extremities exam: Positive for: full ROM, normal inspection. Negative for: calf tenderness, joint swelling, pedal edema, tenderness - Back Exam Back exam: NORMAL INSPECTION. absent: CVA tenderness (L), CVA tenderness (R) - Neurological Exam Neurological exam: Alert, CN II-XII Intact, Oriented x3, Reflexes Normal - Psychiatric Exam Psychiatric exam: Normal Affect, Normal Mood - Skin Skin Exam: Dry, Intact, Normal Color, Warm Results - Vital Signs Recent Vital Signs: Last Vital Signs Temp 98.2 F 06/01/17 22:17 Pulse 84 06/01/17 23:19 Resp 17 06/01/17 23:19 BP 118/69 06/01/17 23:19 Pulse Ox 100 06/01/17 23:25 - Labs Result Diagrams: 06/01/17 22:40 06/01/17 22:40 Labs: Laboratory Results - last 24 hr 06/01/17 06/01/17 06/01/17 22:40 22:40 22:40 WBC 11.1 H RBC 5.77 Hgb 15.3 Hct 47.9 MCV 83.0 MCH 26.5 L MCHC 32.0 L RDW 13.5 Plt Count 233 MPV 10.9 Neut % (Auto) 41.1 L Lymph % (Auto) 36.2 [place] % (Auto) 14.2 H Eos % (Auto) 5.8 H Baso % (Auto) 2.7 H Neut # 4.5 Lymph # 4.0 [place] # 1.6 H Eos # 0.6 Baso # 0.3 H PT 11.2 INR 1.1 APTT 31.9 Sodium 145 Potassium 4.0 Chloride 99 Carbon Dioxide 31 H Anion Gap 19 BUN 26 H Creatinine 1.0 Est GFR ( Amer) > 60 Est GFR (Non-Af Amer) > 60 Random Glucose 271 H Calcium 9.3 Phosphorus 4.6 H Magnesium 1.9 Total Bilirubin 0.6 AST 34 ALT 27 Alkaline Phosphatase 112 Troponin I < 0.0120 NT-Pro-B Natriuret Pep 74.0 Total Protein 8.3 H Albumin 4.2 Globulin 4.1 H Albumin/Globulin Ratio 1.0 - Imaging and Cardiology Chest x-ray Status: Image reviewed by me Additional comment: No infiltrate. No sign of active disease Assessment & Plan - Assessment and Plan (Free Text) Assessment: #. Status Asthmaticus #. Dehydration #. DM II #. HTN Plan: 66 years old male with hx of HTN, DM II and Asthma who was brought to the ED because of one day of SOB with wheezes and severe respiratory distress. In the ED he was using Accessory muscles of respiration and could not complete sentences. He was treated with Solu-medrol and Duoneb en route from home, and Albuterol and Terbutaline each twice in the ED along with Magnesium Sulfate. #. Status Asthmaticus - Consult Dr Bernabe pulmonary - Albuterol Q4hrs and Q2hrs Prn - Solu-medrol Q6hrs - Advair - High flow Oxygen 25L/m FiO2 40% #. Dehydration - mhold Chlorthalidone - IV Fluid 0.45NS at 150mls/hr - follow renal labs #. DM II with Hyperglycemia - Diabetic Diet - regular Insulin sliding scale according to accucheck - IV Fluids - Metformin - HbA1c #. HTN - Norvasc - Hold Atenol #. DVT Prophylaxis with SCD ( Pte has Hx of subdural hematoma and Subaracnoid hemorrhage #. Code Status: Full - Date & Time Date: 06/01/17 Time: 23:47
[2017-06-01 23:52] LABS: ABG ALLEN TEST YES; ARTERIAL BLOOD GAS HCO3 29.4 mmol/L (21-28); ARTERIAL BLOOD GAS MODE HIGH FLOW LPM; ARTERIAL BLOOD GAS PH 7.39 (7.35-7.45); ARTERIAL BLOOD GAS PO2 90 mm/Hg (80-100)
[2017-06-02] MEDS ORDERED: Fluticasone-Salmeterol 250-50mcg Diskus INH PRN (00:56)
[2017-06-02] MEDS: Sodium Chloride 0.45% 1,000 ML IV SCH ×4 (01:31→22:25)
[2017-06-02 02:46] VITALS: BMI 22.4
[2017-06-02] MEDS: methylPREDNISolone 40 MG in Sodium Chloride 0.9% 50 ML IVPB SCH ×4 (04:16→22:29)
[2017-06-02] MEDS: Albuterol 0.083% Inhal Sol (2.5 mg/3 mL) UD INH SCH ×5 (04:34→19:23)
[2017-06-02 04:43] LABS: ABG ALLEN TEST YES; ARTERIAL BLOOD FLOW 25; ARTERIAL BLOOD GAS HCO3 27.8 mmol/L (21-28); ARTERIAL BLOOD GAS MODE HIGH FLOW LPM; ARTERIAL BLOOD GAS O2 CAPACITY 20.7 mL/dL (16-24); ARTERIAL BLOOD GAS O2 CONTENT 20.5 ML/dL (15-23); ARTERIAL BLOOD GAS PH 7.38 (7.35-7.45); ARTERIAL BLOOD GAS PO2 111 mm/Hg (80-100); ARTERIAL BLOOD HGB O2 SAT 95.6 % (95.0-98.0); CARBOXYHEMOGLOBIN 1.6 % (0.5-1.5); HHB 1.1 % (0.0-5.0); METHEMOGLOBIN 1.7 % (0.0-3.0)
[2017-06-02 06:19] LABS: BLOOD UREA NITROGEN 27 mg/dl (9-20); CALCIUM 8.8 mg/dL (8.4-10.2); CARBON DIOXIDE 28 mmol/L (22-30); CHLORIDE 98 mmol/L (98-107); GFR AFRICAN-AMERICAN > 60; GLUCOSE,RANDOM 351 mg/dL (75-110); POTASSIUM 3.4 MMOL/L (3.6-5.0); SODIUM 142 mmol/l (132-148)
--- NOTE | 2017-06-02 08:08 | CP.PCM.HP ---
History of Present Illness - History of Present Illness History of Present Illness: pt admitted for status asthmaticus. at present doing well. no f/c, n/v/d. states was doing well the exacerbationcame on suddenly. pt now on high flow o2 and comfortable. rec'd mag, terbutaline, steroids and nebs in er bw and abg noted. nsr on monitor pulm consult pending Present on Admission - Present on Admission Any Indicators Present on Admission: No Review of Systems - Respiratory Respiratory: As Per HPI, Dyspnea, Dyspnea on Exertion, Wheezing, Chest Congestion Past Patient History - Infectious Disease Hx of Infectious Diseases: None - Past Medical History & Family History Past Medical History?: Yes - Past Social History Smoking Status: Former Smoker Chewing Tobacco Use: Yes Cigar Use: Yes Alcohol: None Drugs: Denies Home Situation {Lives}: With Family - CARDIAC Hx Hypercholesterolemia: Yes Hx Hypertension: Yes - PULMONARY Hx Asthma: Yes - NEUROLOGICAL Hx Neurological Disorder: No - HEENT Hx HEENT Problems: No - RENAL Hx Chronic Kidney Disease: No - ENDOCRINE/METABOLIC Hx Diabetes Mellitus Type 2: Yes - HEMATOLOGICAL/ONCOLOGICAL Hx Blood Disorders: No - INTEGUMENTARY Hx Dermatological Problems: No - MUSCULOSKELETAL/RHEUMATOLOGICAL Hx Musculoskeletal Disorders: No Hx Falls: Yes (SYNCOPAL EPISODE TODAY) Other/Comment: last year fell at home head injury/sutures - GASTROINTESTINAL Hx Gastrointestinal Disorders: No - GENITOURINARY/GYNECOLOGICAL Hx Genitourinary Disorders: No - PSYCHIATRIC Hx Psychophysiologic Disorder: No Hx Substance Use: No - SURGICAL HISTORY Hx Surgeries: No - ANESTHESIA Hx Anesthesia: No Hx Anesthesia Reactions: No Hx Malignant Hyperthermia: No Meds Allergies/Adverse Reactions: Allergies Allergy/AdvReac Type Severity Reaction Status Date / Time Penicillins Allergy RASH Verified 06/01/17 22:52 Physical Exam - Constitutional Appears: Well, Non-toxic, No Acute Distress - Head Exam Head Exam: ATRAUMATIC, NORMAL INSPECTION, NORMOCEPHALIC - Eye Exam Eye Exam: EOMI, Normal appearance, PERRL Pupil Exam: NORMAL ACCOMODATION, PERRL - ENT Exam ENT Exam: Mucous Membranes Moist, Normal Exam - Neck Exam Neck exam: Positive for: Normal Inspection - Respiratory Exam Respiratory Exam: Clear to Auscultation Bilateral, NORMAL BREATHING PATTERN - Cardiovascular Exam Cardiovascular Exam: REGULAR RHYTHM, RRR, +S1, +S2 - GI/Abdominal Exam GI & Abdominal Exam: Normal Bowel Sounds, Soft. absent: Tenderness - Extremities Exam Extremities exam: Positive for: full ROM, normal capillary refill, normal inspection, pedal pulses present - Back Exam Back exam: NORMAL INSPECTION - Neurological Exam Neurological exam: Alert, CN II-XII Intact, Normal Gait, Oriented x3, Reflexes Normal - Psychiatric Exam Psychiatric exam: Normal Affect, Normal Mood - Skin Skin Exam: Dry, Intact, Normal Color, Warm Results - Vital Signs Recent Vital Signs: Last Vital Signs Temp 97.7 F 06/02/17 04:00 Pulse 83 06/02/17 06:00 Resp 16 06/02/17 07:45 BP 114/78 06/02/17 04:00 Pulse Ox 98 06/02/17 06:00 - Labs Result Diagrams: 06/01/17 22:40 06/02/17 05:30 Labs: Laboratory Results - last 24 hr 06/01/17 06/01/17 06/01/17 22:40 22:40 22:40 WBC 11.1 H RBC 5.77 Hgb 15.3 Hct 47.9 MCV 83.0 MCH 26.5 L MCHC 32.0 L RDW 13.5 Plt Count 233 MPV 10.9 Neut % (Auto) 41.1 L Lymph % (Auto) 36.2 [place] % (Auto) 14.2 H Eos % (Auto) 5.8 H Baso % (Auto) 2.7 H Neut # 4.5 Lymph # 4.0 [place] # 1.6 H Eos # 0.6 Baso # 0.3 H PT 11.2 INR 1.1 APTT 31.9 pCO2 pO2 HCO3 ABG pH ABG Total CO2 ABG O2 Saturation ABG O2 Content ABG Base Excess ABG Hemoglobin ABG Carboxyhemoglobin POC ABG HHb (Measured) ABG Methemoglobin ABG O2 Capacity [place] Test ABG Potassium A-a O2 Difference Hgb O2 Saturation Glucose Lactate Liter Flow Vent Mode FiO2 Sodium 145 Potassium 4.0 Chloride 99 Carbon Dioxide 31 H Anion Gap 19 BUN 26 H Creatinine 1.0 Est GFR ( Amer) > 60 Est GFR (Non-Af Amer) > 60 POC Glucose (mg/dL) Random Glucose 271 H Calcium 9.3 Phosphorus 4.6 H Magnesium 1.9 Total Bilirubin 0.6 AST 34 ALT 27 Alkaline Phosphatase 112 Troponin I < 0.0120 NT-Pro-B Natriuret Pep 74.0 Total Protein 8.3 H Albumin 4.2 Globulin 4.1 H Albumin/Globulin Ratio 1.0 Arterial Blood Potassium 06/01/17 06/02/17 06/02/17 23:45 04:20 04:35 WBC RBC Hgb Hct MCV MCH MCHC RDW Plt Count MPV Neut % (Auto) Lymph % (Auto) [place] % (Auto) Eos % (Auto) Baso % (Auto) Neut # Lymph # [place] # Eos # Baso # PT INR APTT pCO2 53 H 51 H pO2 90 111 H HCO3 29.4 H 27.8 ABG pH 7.39 7.38 ABG Total CO2 33.7 H 31.8 H ABG O2 Saturation 99.7 H 98.9 H ABG O2 Content 20.5 ABG Base Excess 5.7 H 3.8 H ABG Hemoglobin 15.2 ABG Carboxyhemoglobin 1.6 H POC ABG HHb (Measured) 1.1 ABG Methemoglobin 1.7 ABG O2 Capacity 20.7 [place] Test Yes Yes ABG Potassium 3.2 L A-a O2 Difference 129.0 110.0 Hgb O2 Saturation 95.6 Glucose 328 H Lactate 1.0 Liter Flow 25 Vent Mode High flow lpm High flow lpm FiO2 40.0 40.0 Sodium 140.0 Potassium Chloride 101.0 Carbon Dioxide Anion Gap BUN Creatinine Est GFR ( Amer) Est GFR (Non-Af Amer) POC Glucose (mg/dL) 329 H Random Glucose Calcium Phosphorus Magnesium Total Bilirubin AST ALT Alkaline Phosphatase Troponin I NT-Pro-B Natriuret Pep Total Protein Albumin Globulin Albumin/Globulin Ratio Arterial Blood Potassium 3.2 L 06/02/17 05:30 WBC RBC Hgb Hct MCV MCH MCHC RDW Plt Count MPV Neut % (Auto) Lymph % (Auto) [place] % (Auto) Eos % (Auto) Baso % (Auto) Neut # Lymph # [place] # Eos # Baso # PT INR APTT pCO2 pO2 HCO3 ABG pH ABG Total CO2 ABG O2 Saturation ABG O2 Content ABG Base Excess ABG Hemoglobin ABG Carboxyhemoglobin POC ABG HHb (Measured) ABG Methemoglobin ABG O2 Capacity [place] Test ABG Potassium A-a O2 Difference Hgb O2 Saturation Glucose Lactate Liter Flow Vent Mode FiO2 Sodium 142 Potassium 3.4 L Chloride 98 Carbon Dioxide 28 Anion Gap 19 BUN 27 H Creatinine 1.1 Est GFR ( Amer) > 60 Est GFR (Non-Af Amer) > 60 POC Glucose (mg/dL) Random Glucose 351 H Calcium 8.8 Phosphorus Magnesium Total Bilirubin AST ALT Alkaline Phosphatase Troponin I NT-Pro-B Natriuret Pep Total Protein Albumin Globulin Albumin/Globulin Ratio Arterial Blood Potassium Assessment & Plan (1) Status asthmaticus Assessment and Plan: high flow o2 icu care nebs, steroids pulm consult Status: Acute (2) DVT prophylaxis Assessment and Plan: scd and aehose ambulation as tolerated lovenox Status: Acute Decision To Admit - Pt Status Changed To: Hospital Disposition Of: Inpatient - Admit Certification Admit to Inpatient:: After my assessment, the patient will require hospitalization for at least two midnights. This is because of the severity of symptoms shown, intensity of services needed, and/or the medical risk in this patient being treated as an outpatient. - . Bed Request Type: Intensive Care Admitting Physician: Kalia Doan
[2017-06-02] MEDS: Insulin Regular 100 units/ml SC SCH ×4 (08:09→22:30)
[2017-06-02] MEDS ORDERED: ATENOLOL PO SCH (09:00)
[2017-06-02] MEDS ORDERED: CHLORTHALIDONE PO SCH (09:00)
[2017-06-02] MEDS: Pravastatin Sodium 20 MG TAB PO SCH (09:01)
[2017-06-02] MEDS ORDERED: Promethazine DM 12.5 mg-30 mg/10 ml Syrup PO PRN (10:17)
[2017-06-02] MEDS ORDERED: Sodium Chloride 3% for Inhalation 4 ML VIAL.NEB IH PRN (10:18)
[2017-06-02] MEDS: Enoxaparin 40 mg Syringe SC SCH (11:08)
--- NOTE | 2017-06-02 11:38 | CP.CCUPN ---
CCU Subjective - Physician Review Subjective (Free Text): Looks more comfortable and not in distress now. SPO2 99% on HF nasal cannula at 25 LPM and 40% oxygen, no audible wheezing noted, otherwise awake and alert, denies any CP or SOB at bed rest, no new focal weakness, dizziness, headaches, sweats. Other vitals and I/O's reviewed. No fever spikes noted. ROS: No other pertinent negs or positives on 10+ system review. PMSFH: All Nursing and physician documentation reviewed to date; no new pertinent info noted relevant to current medical problems. MAJOR PROBLEMS: 1. Acute Hypoxemic Resp Insuff 2 Asthma Exacerbation with tracheobronchitis 2. Hypokalemia with Mild Azotemia / dehydration PLAN: 1. IV Steroids, Duonebs, and empiric abx. Check Sputum Cx if feasible. 2. No immediate need for any other assisted breathing support as of now. 3. Diuretics on hold for now. 4. Maintain normoglycemia CCU Objective - Vital Signs / Intake & Output Vital Signs (Last 4 hours): Vital Signs Temp Pulse Resp BP Pulse Ox 06/02/17 11:09 85 104/75 06/02/17 08:00 97.6 F 78 11 L 121/75 97 06/02/17 07:45 16 Intake and Output (Last 8hrs): Intake & Output 06/01/17 06/02/17 06/02/17 22:59 06:59 14:59 Intake Total 795 150 Output Total 400 Balance 395 150 Weight 170 lb 147 lb 8 oz Intake: IV 675 150 Oral 120 Output: Urine 400 Urine, Voided 400 - Physical Exam Head: Positive for: Normocephalic Pupils: Positive for: PERRL Extroacular Muscles: Positive for: EOMI Conjunctiva: Positive for: Normal. Negative for: Icteric Mouth: Positive for: Moist Mucous Membranes Respiratory/Chest: Positive for: Clear to Auscultation. Negative for: Accessory Muscle Use, Wheezes, Rales Cardiovascular: Positive for: Regular Rate and Rhythm. Negative for: Murmurs, Rub Abdomen: Positive for: Normal Bowel Sounds. Negative for: Tenderness, Distention Lower Extremity: Positive for: Normal Inspection, NORMAL PULSES. Negative for: CALF TENDERNESS, Cyanosis Neurological: Positive for: GCS=15, Speech Normal, Motor Func Grossly Intact Skin: Positive for: Warm. Negative for: Rashes Psychiatric: Positive for: Alert, Oriented x 3 - Medications Active Medications: Active Medications Generic Name Dose Route Start Last Admin Trade Name Freq PRN Reason Stop Dose Admin Acetylcysteine 2 ml 06/02/17 20:00 Acetylcysteine 20% INH RBID ALISSON Albuterol Sulfate 2.5 mg 06/02/17 04:00 06/02/17 11:15 Albuterol 0.083% Inhal Dary (2.5 Mg/3 Ml) Ud INH 2.5 mg RQ4 [facility] Administration Atenolol 50 mg 06/02/17 09:00 06/02/17 11:09 Tenormin PO 50 mg DAILY [facility] Administration Chlorthalidone 25 mg 06/02/17 09:00 06/02/17 11:04 Hygroton PO 25 mg DAILY [facility] Administration Enoxaparin Sodium 40 mg 06/02/17 09:00 06/02/17 11:08 Lovenox SC 40 mg DAILY [facility] Administration Protocol Sodium Chloride 1,000 mls @ 150 mls/hr 06/02/17 00:45 06/02/17 08:12 Sodium Chloride 0.45% IV 06/03/17 00:38 150 mls/hr .[id number] [facility] Administration Methylprednisolone 40 mg/ 50 mls @ 100 mls/hr 06/02/17 04:00 06/02/17 09:01 Sodium Chloride IVPB 100 mls/hr Q6 [facility] Administration Insulin Human Regular 0 units 06/02/17 07:30 06/02/17 08:09 Humulin R SC 5 units ACHS [facility] Administration Protocol Metformin HCl 500 mg 06/02/17 08:00 06/02/17 08:10 Glucophage PO 500 mg BRK [facility] Administration Montelukast Sodium 10 mg 06/02/17 10:15 06/02/17 11:10 Singulair PO 10 mg DAILY [facility] Administration Pravastatin Sodium 20 mg 06/02/17 09:00 06/02/17 09:01 Pravachol PO 20 mg DAILY [facility] Administration Promethazine HCl/Dextromethorphan 10 ml 06/02/17 10:17 Phenergan Dm Syrup PO Q6 PRN Cough Fluticasone/Salmeterol 1 puff 06/02/17 00:56 Advair Diskus 250/50 INH BID PRN Wheezing - Patient Studies Lab Studies: Lab Studies 06/02/17 06/02/17 06/02/17 Range/Units 05:30 04:35 04:20 WBC (4.8-10.8) K/uL RBC (4.40-5.90) Mil/uL Hgb (12.0-18.0) g/dL Hct (35.0-51.0) % MCV (80.0-94.0) fl MCH (27.0-31.0) pg MCHC (33.0-37.0) g/dL RDW (11.5-14.5) % Plt Count (130-400) K/uL MPV (7.2-11.7) fl Neut % (Auto) (50.0-75.0) % Lymph % (Auto) (20.0-40.0) % Daggett % (Auto) (0.0-10.0) % Eos % (Auto) (0.0-4.0) % Baso % (Auto) (0.0-2.0) % Neut # (1.8-7.0) K/uL Lymph # (1.0-4.3) K/uL Daggett # (0.0-0.8) K/uL Eos # (0.0-0.7) K/uL Baso # (0.0-0.2) K/uL PT (9.8-13.1) Seconds INR (0.9-1.2) APTT (25.6-37.1) Seconds pCO2 51 H (35-45) mm/Hg pO2 111 H (80-100) mm/Hg HCO3 27.8 (21-28) mmol/L ABG pH 7.38 (7.35-7.45) ABG Total CO2 31.8 H (22-28) mmol/L ABG O2 Saturation 98.9 H (95-98) % ABG O2 Content 20.5 (15-23) ML/dL ABG Base Excess 3.8 H (-2.0-3.0) mmol/L ABG Hemoglobin 15.2 (11.7-17.4) g/dL ABG Carboxyhemoglobin 1.6 H (0.5-1.5) % POC ABG HHb (Measured) 1.1 (0.0-5.0) % ABG Methemoglobin 1.7 (0.0-3.0) % ABG O2 Capacity 20.7 (16-24) mL/dL Zoran Test Yes ABG Potassium (3.6-5.2) mmol/L A-a O2 Difference 110.0 mm/Hg Hgb O2 Saturation 95.6 (95.0-98.0) % Glucose (75-110) mg/dL Lactate (0.7-2.1) mmol/L Liter Flow 25 Vent Mode High flow lpm FiO2 40.0 % Sodium 142 (132-148) mmol/l Potassium 3.4 L (3.6-5.0) MMOL/L Chloride 98 (98-107) mmol/L Carbon Dioxide 28 (22-30) mmol/L Anion Gap 19 (10-20) BUN 27 H (9-20) mg/dl Creatinine 1.1 (0.8-1.5) mg/dL Est GFR ( Amer) > 60 Est GFR (Non-Af Amer) > 60 POC Glucose (mg/dL) 329 H (65-110) mg/dL Random Glucose 351 H (75-110) mg/dL Calcium 8.8 (8.4-10.2) mg/dL Phosphorus (2.5-4.5) mg/dl Magnesium (1.6-2.3) MG/DL Total Bilirubin (0.2-1.3) mg/dl AST (17-59) U/L ALT (21-72) U/L Alkaline Phosphatase (38-126) U/L Troponin I (0.00-0.120) ng/mL NT-Pro-B Natriuret Pep (0-900) pg/ml Total Protein (6.3-8.2) G/DL Albumin (3.5-5.0) g/dL Globulin (2.2-3.9) gm/dL Albumin/Globulin Ratio (1.0-2.1) Arterial Blood Potassium (3.6-5.2) mmol/L 06/01/17 06/01/17 06/01/17 Range/Units 23:45 22:40 22:40 WBC 11.1 H (4.8-10.8) K/uL RBC 5.77 (4.40-5.90) Mil/uL Hgb 15.3 (12.0-18.0) g/dL Hct 47.9 (35.0-51.0) % MCV 83.0 (80.0-94.0) fl MCH 26.5 L (27.0-31.0) pg MCHC 32.0 L (33.0-37.0) g/dL RDW 13.5 (11.5-14.5) % Plt Count 233 (130-400) K/uL MPV 10.9 (7.2-11.7) fl Neut % (Auto) 41.1 L (50.0-75.0) % Lymph % (Auto) 36.2 (20.0-40.0) % Daggett % (Auto) 14.2 H (0.0-10.0) % Eos % (Auto) 5.8 H (0.0-4.0) % Baso % (Auto) 2.7 H (0.0-2.0) % Neut # 4.5 (1.8-7.0) K/uL Lymph # 4.0 (1.0-4.3) K/uL Daggett # 1.6 H (0.0-0.8) K/uL Eos # 0.6 (0.0-0.7) K/uL Baso # 0.3 H (0.0-0.2) K/uL PT 11.2 (9.8-13.1) Seconds INR 1.1 (0.9-1.2) APTT 31.9 (25.6-37.1) Seconds pCO2 53 H (35-45) mm/Hg pO2 90 (80-100) mm/Hg HCO3 29.4 H (21-28) mmol/L ABG pH 7.39 (7.35-7.45) ABG Total CO2 33.7 H (22-28) mmol/L ABG O2 Saturation 99.7 H (95-98) % ABG O2 Content (15-23) ML/dL ABG Base Excess 5.7 H (-2.0-3.0) mmol/L ABG Hemoglobin (11.7-17.4) g/dL ABG Carboxyhemoglobin (0.5-1.5) % POC ABG HHb (Measured) (0.0-5.0) % ABG Methemoglobin (0.0-3.0) % ABG O2 Capacity (16-24) mL/dL Zoran Test Yes ABG Potassium 3.2 L (3.6-5.2) mmol/L A-a O2 Difference 129.0 mm/Hg Hgb O2 Saturation (95.0-98.0) % Glucose 328 H (75-110) mg/dL Lactate 1.0 (0.7-2.1) mmol/L Liter Flow Vent Mode High flow lpm FiO2 40.0 % Sodium 140.0 (132-148) mmol/l Potassium (3.6-5.0) MMOL/L Chloride 101.0 (98-107) mmol/L Carbon Dioxide (22-30) mmol/L Anion Gap (10-20) BUN (9-20) mg/dl Creatinine (0.8-1.5) mg/dL Est GFR ( Amer) Est GFR (Non-Af Amer) POC Glucose (mg/dL) (65-110) mg/dL Random Glucose (75-110) mg/dL Calcium (8.4-10.2) mg/dL Phosphorus (2.5-4.5) mg/dl Magnesium (1.6-2.3) MG/DL Total Bilirubin (0.2-1.3) mg/dl AST (17-59) U/L ALT (21-72) U/L Alkaline Phosphatase (38-126) U/L Troponin I (0.00-0.120) ng/mL NT-Pro-B Natriuret Pep (0-900) pg/ml Total Protein (6.3-8.2) G/DL Albumin (3.5-5.0) g/dL Globulin (2.2-3.9) gm/dL Albumin/Globulin Ratio (1.0-2.1) Arterial Blood Potassium 3.2 L (3.6-5.2) mmol/L 06/01/17 Range/Units 22:40 WBC (4.8-10.8) K/uL RBC (4.40-5.90) Mil/uL Hgb (12.0-18.0) g/dL Hct (35.0-51.0) % MCV (80.0-94.0) fl MCH (27.0-31.0) pg MCHC (33.0-37.0) g/dL RDW (11.5-14.5) % Plt Count (130-400) K/uL MPV (7.2-11.7) fl Neut % (Auto) (50.0-75.0) % Lymph % (Auto) (20.0-40.0) % Daggett % (Auto) (0.0-10.0) % Eos % (Auto) (0.0-4.0) % Baso % (Auto) (0.0-2.0) % Neut # (1.8-7.0) K/uL Lymph # (1.0-4.3) K/uL Daggett # (0.0-0.8) K/uL Eos # (0.0-0.7) K/uL Baso # (0.0-0.2) K/uL PT (9.8-13.1) Seconds INR (0.9-1.2) APTT (25.6-37.1) Seconds pCO2 (35-45) mm/Hg pO2 (80-100) mm/Hg HCO3 (21-28) mmol/L ABG pH (7.35-7.45) ABG Total CO2 (22-28) mmol/L ABG O2 Saturation (95-98) % ABG O2 Content (15-23) ML/dL ABG Base Excess (-2.0-3.0) mmol/L ABG Hemoglobin (11.7-17.4) g/dL ABG Carboxyhemoglobin (0.5-1.5) % POC ABG HHb (Measured) (0.0-5.0) % ABG Methemoglobin (0.0-3.0) % ABG O2 Capacity (16-24) mL/dL Zoran Test ABG Potassium (3.6-5.2) mmol/L A-a O2 Difference mm/Hg Hgb O2 Saturation (95.0-98.0) % Glucose (75-110) mg/dL Lactate (0.7-2.1) mmol/L Liter Flow Vent Mode FiO2 % Sodium 145 (132-148) mmol/l Potassium 4.0 (3.6-5.0) MMOL/L Chloride 99 (98-107) mmol/L Carbon Dioxide 31 H (22-30) mmol/L Anion Gap 19 (10-20) BUN 26 H (9-20) mg/dl Creatinine 1.0 (0.8-1.5) mg/dL Est GFR ( Amer) > 60 Est GFR (Non-Af Amer) > 60 POC Glucose (mg/dL) (65-110) mg/dL Random Glucose 271 H (75-110) mg/dL Calcium 9.3 (8.4-10.2) mg/dL Phosphorus 4.6 H (2.5-4.5) mg/dl Magnesium 1.9 (1.6-2.3) MG/DL Total Bilirubin 0.6 (0.2-1.3) mg/dl AST 34 (17-59) U/L ALT 27 (21-72) U/L Alkaline Phosphatase 112 (38-126) U/L Troponin I < 0.0120 (0.00-0.120) ng/mL NT-Pro-B Natriuret Pep 74.0 (0-900) pg/ml Total Protein 8.3 H (6.3-8.2) G/DL Albumin 4.2 (3.5-5.0) g/dL Globulin 4.1 H (2.2-3.9) gm/dL Albumin/Globulin Ratio 1.0 (1.0-2.1) Arterial Blood Potassium (3.6-5.2) mmol/L Laboratory Results - last 24 hr 06/01/17 06/01/17 06/01/17 22:40 22:40 22:40 WBC 11.1 H RBC 5.77 Hgb 15.3 Hct 47.9 MCV 83.0 MCH 26.5 L MCHC 32.0 L RDW 13.5 Plt Count 233 MPV 10.9 Neut % (Auto) 41.1 L Lymph % (Auto) 36.2 Daggett % (Auto) 14.2 H Eos % (Auto) 5.8 H Baso % (Auto) 2.7 H Neut # 4.5 Lymph # 4.0 Daggett # 1.6 H Eos # 0.6 Baso # 0.3 H PT 11.2 INR 1.1 APTT 31.9 pCO2 pO2 HCO3 ABG pH ABG Total CO2 ABG O2 Saturation ABG O2 Content ABG Base Excess ABG Hemoglobin ABG Carboxyhemoglobin POC ABG HHb (Measured) ABG Methemoglobin ABG O2 Capacity Zoran Test ABG Potassium A-a O2 Difference Hgb O2 Saturation Glucose Lactate Liter Flow Vent Mode FiO2 Sodium 145 Potassium 4.0 Chloride 99 Carbon Dioxide 31 H Anion Gap 19 BUN 26 H Creatinine 1.0 Est GFR ( Amer) > 60 Est GFR (Non-Af Amer) > 60 POC Glucose (mg/dL) Random Glucose 271 H Calcium 9.3 Phosphorus 4.6 H Magnesium 1.9 Total Bilirubin 0.6 AST 34 ALT 27 Alkaline Phosphatase 112 Troponin I < 0.0120 NT-Pro-B Natriuret Pep 74.0 Total Protein 8.3 H Albumin 4.2 Globulin 4.1 H Albumin/Globulin Ratio 1.0 Arterial Blood Potassium 06/01/17 06/02/17 06/02/17 23:45 04:20 04:35 WBC RBC Hgb Hct MCV MCH MCHC RDW Plt Count MPV Neut % (Auto) Lymph % (Auto) Daggett % (Auto) Eos % (Auto) Baso % (Auto) Neut # Lymph # Daggett # Eos # Baso # PT INR APTT pCO2 53 H 51 H pO2 90 111 H HCO3 29.4 H 27.8 ABG pH 7.39 7.38 ABG Total CO2 33.7 H 31.8 H ABG O2 Saturation 99.7 H 98.9 H ABG O2 Content 20.5 ABG Base Excess 5.7 H 3.8 H ABG Hemoglobin 15.2 ABG Carboxyhemoglobin 1.6 H POC ABG HHb (Measured) 1.1 ABG Methemoglobin 1.7 ABG O2 Capacity 20.7 Zoran Test Yes Yes ABG Potassium 3.2 L A-a O2 Difference 129.0 110.0 Hgb O2 Saturation 95.6 Glucose 328 H Lactate 1.0 Liter Flow 25 Vent Mode High flow lpm High flow lpm FiO2 40.0 40.0 Sodium 140.0 Potassium Chloride 101.0 Carbon Dioxide Anion Gap BUN Creatinine Est GFR ( Amer) Est GFR (Non-Af Amer) POC Glucose (mg/dL) 329 H Random Glucose Calcium Phosphorus Magnesium Total Bilirubin AST ALT Alkaline Phosphatase Troponin I NT-Pro-B Natriuret Pep Total Protein Albumin Globulin Albumin/Globulin Ratio Arterial Blood Potassium 3.2 L 06/02/17 05:30 WBC RBC Hgb Hct MCV MCH MCHC RDW Plt Count MPV Neut % (Auto) Lymph % (Auto) Daggett % (Auto) Eos % (Auto) Baso % (Auto) Neut # Lymph # Daggett # Eos # Baso # PT INR APTT pCO2 pO2 HCO3 ABG pH ABG Total CO2 ABG O2 Saturation ABG O2 Content ABG Base Excess ABG Hemoglobin ABG Carboxyhemoglobin POC ABG HHb (Measured) ABG Methemoglobin ABG O2 Capacity Zoran Test ABG Potassium A-a O2 Difference Hgb O2 Saturation Glucose Lactate Liter Flow Vent Mode FiO2 Sodium 142 Potassium 3.4 L Chloride 98 Carbon Dioxide 28 Anion Gap 19 BUN 27 H Creatinine 1.1 Est GFR ( Amer) > 60 Est GFR (Non-Af Amer) > 60 POC Glucose (mg/dL) Random Glucose 351 H Calcium 8.8 Phosphorus Magnesium Total Bilirubin AST ALT Alkaline Phosphatase Troponin I NT-Pro-B Natriuret Pep Total Protein Albumin Globulin Albumin/Globulin Ratio Arterial Blood Potassium Fingerstick Blood Sugar Results: 351 Review of Systems - Review of Systems All systems: reviewed and no additional remarkable complaints except (as above) Critical Care Progress Note - Nutrition Nutrition: Nutrition Category Date Time Status Consistent Carbohydrate [DIET] Diets 06/02/17 Breakfast Active
--- NOTE | 2017-06-02 11:42 | RAD ---
HISTORY: sob COMPARISON: Chest radiograph 05/06/2017. FINDINGS: LUNGS: No acute infiltrate is appreciate bilaterally. A small nodular density is seen at the inferior left stone approaching the costophrenic sulcus in the interval however. Follow-up chest is advised for additional characterization of this area. PLEURA: No significant pleural effusion identified, no pneumothorax apparent. CARDIOVASCULAR: Normal. OSSEOUS STRUCTURES: Dextroscoliotic thoracic spinal deformity again appreciated VISUALIZED UPPER ABDOMEN: Normal. OTHER FINDINGS: None. IMPRESSION: No acute cardiopulmonary disease is appreciated however a small nodule is seen the left base laterally for which follow-up chest is recommended for additional characterization. This case has been assigned for PA review.
--- NOTE | 2017-06-02 12:04 | CARD ---
APPROVED REPORT EKG Measurement Heart [id number] <Conclusion> Sinus tachycardia Non-specific ST-T changes
--- NOTE | 2017-06-02 16:16 | CON ---
DATE:06/01/2017 HISTORY OF PRESENT ILLNESS: The patient is a 66-year-old male who was referred for pulmonary evaluation by Braden Up. He was admitted via the emergency room because of shortness of breath, which started suddenly on the day of admission, associated with chest tightness and cough. He was recently discharged from [facility] after therapy for acute asthma. He indicates that he felt better, had gone home and became shortness of breath on the day of admission. He indicates that shortness of breath started all of a sudden. There was no exertion, no exposure to allergens prior to symptoms. PAST MEDICAL HISTORY: Asthma, diabetes mellitus, hypertension, subdural hematoma in the past. FAMILY HISTORY: Unremarkable. SOCIAL HISTORY: He is a former smoker, does not smoke anymore and quit drinking alcohol several years ago. Does not use any illegal drugs. Lives at home with daughter. REVIEW OF SYSTEMS: Remarkable for shortness of breath, exercise intolerance and frequent admissions to the hospital for asthma. ALLERGIES: INCLUDE PENICILLIN. PHYSICAL EXAMINATION: GENERAL: The patient is alert, oriented, appears to be feeling some distress and is presently admitted to the intensive care unit. VITAL SIGNS: Blood pressure 120/75 with a pulse of 78, respiratory rate is 13 per minute. He is afebrile, O2 sat 97% on a high-flow vapotherm oxygen, ox flow rate of 25 liters per minute and FiO2 of 40%. SKIN: Shows fair turgor. HEENT: Pupils are equal and reactive to light and accommodation. Mouth shows fair hygiene with mucous engorgement of pharynx. NECK: JVP flat. LUNGS: Bilateral coarse rales and wheezing. HEART: S1 and S2. ABDOMEN: Soft, nontender. No organomegaly. EXTREMITIES: Shows no edema or cyanosis. CENTRAL NERVOUS SYSTEM: Grossly intact. LABORATORY DATA: Remarkable for WBC of 11.1, hemoglobin 15.3, platelet count of 233,000. Sodium 142, potassium 3.4, BUN of 27, creatinine 1.1, serum glucose 351. Arterial blood gas on a high-flow oxygen of 40% FiO2, pH 7.38, pCO2 of 51, pO2 of 111, bicarbonate of 27.8, O2 saturation 98.9. Chest x-ray, official report pending. IMPRESSION: Status asthmaticus, upper respiratory tract infection, history of diabetes mellitus. PLAN: Intravenous steroids, aerosolized bronchodilators, oxygen. We would add Singular to therapy, anti-toxics are already ordered. Sputum cultures ordered. The plan is to continue therapy as ordered. We will continue to follow with you. Further therapy will depend on findings. Dion Marsh MD
[2017-06-02] MEDS: Acetylcysteine 20% Inhal Soln (4ml) INH SCH (19:23)
[2017-06-02] MEDS: Potassium Chl 20 mEq in NS 1,000 ML IV SCH ×2 (20:52→22:37)
[2017-06-03] MEDS: Albuterol 0.083% Inhal Sol (2.5 mg/3 mL) UD INH SCH ×7 (03:45→23:27)
[2017-06-03] MEDS: methylPREDNISolone 40 MG in Sodium Chloride 0.9% 50 ML IVPB SCH ×4 (04:02→21:43)
[2017-06-03] MEDS: Potassium Chl 20 mEq in NS 1,000 ML IV SCH ×3 (04:48→15:43)
[2017-06-03] MEDS: Acetylcysteine 20% Inhal Soln (4ml) INH SCH ×2 (07:55→19:20)
[2017-06-03] MEDS: Insulin Regular 100 units/ml SC SCH ×4 (08:30→21:42)
[2017-06-03] MEDS: Enoxaparin 40 mg Syringe SC SCH (08:32)
[2017-06-03] MEDS: Pravastatin Sodium 20 MG TAB PO SCH (08:32)
--- NOTE | 2017-06-03 11:02 | CP.PCM.PN ---
Subjective - Date & Time of Evaluation Date of Evaluation: 06/03/17 Time of Evaluation: 11:02 - Subjective Subjective: FEELS BETTER SOB LESS Objective - Vital Signs/Intake and Output Vital Signs (last 24 hours): Temp Pulse Resp BP Pulse Ox 97.5 F L 76 20 120/74 96 06/03/17 07:24 06/03/17 07:24 06/03/17 07:24 06/03/17 07:24 06/03/17 07:24 Intake and Output: 06/03/17 06/03/17 06:59 18:59 Intake Total 1950 Balance 1950 - Medications Medications: Current Medications Acetylcysteine (Acetylcysteine 20%) 2 ml INH RBID [facility] Last Admin: 06/03/17 07:55 Dose: 2 ml Albuterol Sulfate (Albuterol 0.083% Inhal Dary (2.5 Mg/3 Ml) Ud) 2.5 mg INH RQ4 [facility] Last Admin: 06/03/17 07:56 Dose: 2.5 mg Atenolol (Tenormin) 50 mg PO DAILY [facility] Last Admin: 06/03/17 08:33 Dose: 50 mg Chlorthalidone (Hygroton) 25 mg PO DAILY [facility] Last Admin: 06/03/17 08:32 Dose: 25 mg Enoxaparin Sodium (Lovenox) 40 mg SC DAILY [facility] PRN Reason: Protocol Last Admin: 06/03/17 08:32 Dose: 40 mg Methylprednisolone 40 mg/ (Sodium Chloride) 50 mls @ 100 mls/hr IVPB Q6 [facility] Last Admin: 06/03/17 09:29 Dose: 100 mls/hr Potassium Chloride/Sodium Chloride (Potassium Chl 20 Meq In Ns) 1,000 mls @ 148.515 mls/hr IV .Q6H44M [facility] Last Admin: 06/03/17 05:20 Dose: Not Given Insulin Human Regular (Humulin R) 0 units SC ACHS [facility] PRN Reason: Protocol Last Admin: 06/03/17 08:30 Dose: 4 units Metformin HCl (Glucophage) 500 mg PO BRK [facility] Last Admin: 06/03/17 08:30 Dose: 500 mg Montelukast Sodium (Singulair) 10 mg PO DAILY [facility] Last Admin: 06/03/17 08:33 Dose: 10 mg Pravastatin Sodium (Pravachol) 20 mg PO DAILY [facility] Last Admin: 06/03/17 08:32 Dose: 20 mg Promethazine HCl/Dextromethorphan (Phenergan Dm Syrup) 10 ml PO Q6 PRN PRN Reason: Cough Fluticasone/Salmeterol (Advair Diskus 250/50) 1 puff INH BID PRN PRN Reason: Wheezing - Labs Labs: 06/01/17 22:40 06/02/17 05:30 PT 11.2 Seconds (9.8-13.1) 06/01/17 22:40 INR 1.1 (0.9-1.2) 06/01/17 22:40 APTT 31.9 Seconds (25.6-37.1) 06/01/17 22:40 - Constitutional Appears: No Acute Distress - Head Exam Head Exam: ATRAUMATIC, NORMAL INSPECTION, NORMOCEPHALIC - Eye Exam Eye Exam: EOMI, Normal appearance, PERRL Pupil Exam: NORMAL ACCOMODATION, PERRL - ENT Exam ENT Exam: Mucous Membranes Moist, Normal Exam - Neck Exam Neck Exam: Full ROM, Normal Inspection. absent: Lymphadenopathy - Respiratory Exam Respiratory Exam: Decreased Breath Sounds, Prolonged Expiratory Phase, Wheezes, NORMAL BREATHING PATTERN - Cardiovascular Exam Cardiovascular Exam: REGULAR RHYTHM, +S1, +S2. absent: Murmur - GI/Abdominal Exam GI & Abdominal Exam: Soft, Normal Bowel Sounds. absent: Tenderness - Rectal Exam Rectal Exam: NORMAL INSPECTION - Extremities Exam Extremities Exam: Full ROM, Normal Capillary Refill, Normal Inspection. absent : Joint Swelling, Pedal Edema - Back Exam Back Exam: NORMAL INSPECTION - Neurological Exam Neurological Exam: Alert, Awake, CN II-XII Intact, Normal Gait, Oriented x3 - Psychiatric Exam Psychiatric exam: Normal Affect, Normal Mood - Skin Skin Exam: Dry, Intact, Normal Color, Warm Assessment and Plan - Assessment and Plan (Free Text) Assessment: ASTHMA--IMPROVING URI Plan: CONTINUE PRESENT RX
[2017-06-03 12:16] LABS: LYMPH # 0.8 K/uL (1.0-4.3); LYMPH % 5.8 % (20.0-40.0); MEAN CELL VOLUME 82.5 fl (80.0-94.0); MEAN CORPUSCULAR HGB CONC 31.5 g/dL (33.0-37.0); MONO # 0.6 K/uL (0.0-0.8); MONO % 4.7 % (0.0-10.0); NEUT # 11.8 K/uL (1.8-7.0); NEUT % 89.5 % (50.0-75.0); PLATELET COUNT 194 K/uL (130-400); RED CELL DISTRIBUTION WIDTH 13.8 % (11.5-14.5); WHITE BLOOD COUNT 13.1 K/uL (4.8-10.8)
[2017-06-03 12:30] LABS: ALKALINE PHOSPHATASE 89 U/L (38-126); ALT/SGPT 26 U/L (21-72); AST/SGOT 17 U/L (17-59); BILIRUBIN,TOTAL 0.3 mg/dl (0.2-1.3); BLOOD UREA NITROGEN 26 mg/dl (9-20); CALCIUM 7.9 mg/dL (8.4-10.2); CARBON DIOXIDE 25 mmol/L (22-30); CHLORIDE 101 mmol/L (98-107); GFR AFRICAN-AMERICAN > 60; POTASSIUM 3.6 MMOL/L (3.6-5.0); SODIUM 138 mmol/l (132-148); TOTAL PROTEIN 6.3 G/DL (6.3-8.2)
[2017-06-03 12:39] LABS: GLUCOSE,RANDOM 478 mg/dL (75-110)
[2017-06-03 12:58] LABS: NEUTROPHIL 87 % (42-75); TOTAL CELLS COUNTED 100
[2017-06-03 12:59] LABS: LARGE PLATELETS PRESENT
--- NOTE | 2017-06-03 19:28 | CP.PCM.PN ---
Subjective - Date & Time of Evaluation Date of Evaluation: 06/03/17 Time of Evaluation: 19:26 - Subjective Subjective: no complaitns offered. comfortable in bed. no f/c, n/v/d. on nsasal cannula. pulm consult appriciated. bw noted. glucose elevated likley r/t steroids Objective - Vital Signs/Intake and Output Vital Signs (last 24 hours): Temp Pulse Resp BP Pulse Ox 97.6 F 76 20 113/71 95 06/03/17 16:02 06/03/17 16:02 06/03/17 16:02 06/03/17 16:02 06/03/17 16:02 - Medications Medications: Current Medications Acetylcysteine (Acetylcysteine 20%) 2 ml INH RBID [facility] Last Admin: 06/03/17 19:20 Dose: 2 ml Albuterol Sulfate (Albuterol 0.083% Inhal Dary (2.5 Mg/3 Ml) Ud) 2.5 mg INH RQ4 [facility] Last Admin: 06/03/17 19:20 Dose: 2.5 mg Atenolol (Tenormin) 50 mg PO DAILY [facility] Last Admin: 06/03/17 08:33 Dose: 50 mg Chlorthalidone (Hygroton) 25 mg PO DAILY [facility] Last Admin: 06/03/17 08:32 Dose: 25 mg Enoxaparin Sodium (Lovenox) 40 mg SC DAILY [facility] PRN Reason: Protocol Last Admin: 06/03/17 08:32 Dose: 40 mg Methylprednisolone 40 mg/ (Sodium Chloride) 50 mls @ 100 mls/hr IVPB Q6 [facility] Last Admin: 06/03/17 15:44 Dose: 100 mls/hr Potassium Chloride/Sodium Chloride (Potassium Chl 20 Meq In Ns) 1,000 mls @ 148.515 mls/hr IV .[id number] [facility] Last Admin: 06/03/17 15:43 Dose: 148.515 mls/hr Insulin Human Regular (Humulin R) 0 units SC ACHS [facility] PRN Reason: Protocol Last Admin: 06/03/17 16:46 Dose: 4 units Metformin HCl (Glucophage) 500 mg PO BRK [facility] Last Admin: 06/03/17 08:30 Dose: 500 mg Montelukast Sodium (Singulair) 10 mg PO DAILY [facility] Last Admin: 06/03/17 08:33 Dose: 10 mg Pravastatin Sodium (Pravachol) 20 mg PO DAILY [facility] Last Admin: 06/03/17 08:32 Dose: 20 mg Promethazine HCl/Dextromethorphan (Phenergan Dm Syrup) 10 ml PO Q6 PRN PRN Reason: Cough Fluticasone/Salmeterol (Advair Diskus 250/50) 1 puff INH BID PRN PRN Reason: Wheezing - Labs Labs: 06/03/17 11:45 06/03/17 11:45 PT 11.2 Seconds (9.8-13.1) 06/01/17 22:40 INR 1.1 (0.9-1.2) 06/01/17 22:40 APTT 31.9 Seconds (25.6-37.1) 06/01/17 22:40 - Constitutional Appears: Well, Non-toxic, No Acute Distress - Head Exam Head Exam: ATRAUMATIC, NORMAL INSPECTION, NORMOCEPHALIC - Eye Exam Eye Exam: EOMI, Normal appearance, PERRL Pupil Exam: NORMAL ACCOMODATION, PERRL - ENT Exam ENT Exam: Mucous Membranes Moist, Normal Exam - Neck Exam Neck Exam: Full ROM, Normal Inspection. absent: Lymphadenopathy - Respiratory Exam Respiratory Exam: Clear to Ausculation Bilateral, NORMAL BREATHING PATTERN - Cardiovascular Exam Cardiovascular Exam: REGULAR RHYTHM, RRR, +S1, +S2. absent: Murmur - GI/Abdominal Exam GI & Abdominal Exam: Soft, Normal Bowel Sounds. absent: Tenderness - Extremities Exam Extremities Exam: Full ROM, Normal Capillary Refill, Normal Inspection. absent : Joint Swelling, Pedal Edema - Back Exam Back Exam: NORMAL INSPECTION - Neurological Exam Neurological Exam: Alert, Awake, CN II-XII Intact, Normal Gait, Oriented x3 - Psychiatric Exam Psychiatric exam: Normal Affect, Normal Mood - Skin Skin Exam: Dry, Intact, Normal Color, Warm Assessment and Plan (1) Status asthmaticus Status: Acute (2) DVT prophylaxis Status: Acute - Assessment and Plan (Free Text) Assessment: (1) Status asthmaticus Assessment and Plan: high flow o2 icu care nebs, steroids pulm consult Status: Acute (2) DVT prophylaxis Assessment and Plan: scd and aehose ambulation as tolerated lovenox Status: Acute 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
[2017-06-04 00:04] VITALS: O2SAT 96
[2017-06-04] MEDS: Potassium Chl 20 mEq in NS 1,000 ML IV SCH ×2 (01:24→08:29)
[2017-06-04] MEDS: methylPREDNISolone 40 MG in Sodium Chloride 0.9% 50 ML IVPB SCH ×2 (03:47→09:14)
[2017-06-04] MEDS: Albuterol 0.083% Inhal Sol (2.5 mg/3 mL) UD INH SCH ×4 (04:37→15:29)
[2017-06-04 06:31] LABS: HEMATOCRIT 41.2 % (35.0-51.0); LYMPH # 0.9 K/uL (1.0-4.3); LYMPH % 7.5 % (20.0-40.0); MEAN CELL VOLUME 82.8 fl (80.0-94.0); MEAN CORPUSCULAR HEMOGLOBIN 26.4 pg (27.0-31.0); MEAN CORPUSCULAR HGB CONC 31.9 g/dL (33.0-37.0); MONO # 0.6 K/uL (0.0-0.8); MONO % 5.4 % (0.0-10.0); NEUT # 10.1 K/uL (1.8-7.0); NEUT % 87.1 % (50.0-75.0); NRBC % 0.1 % (0.0-0.0); RED CELL DISTRIBUTION WIDTH 14.1 % (11.5-14.5); WHITE BLOOD COUNT 11.6 K/uL (4.8-10.8)
[2017-06-04 06:44] LABS: ALB/GLOB RATIO 1.1 (1.0-2.1); ALKALINE PHOSPHATASE 93 U/L (38-126); ALT/SGPT 22 U/L (21-72); AST/SGOT 17 U/L (17-59); BILIRUBIN,TOTAL 0.3 mg/dl (0.2-1.3); BLOOD UREA NITROGEN 32 mg/dl (9-20); CARBON DIOXIDE 24 mmol/L (22-30); CHLORIDE 102 mmol/L (98-107); GFR AFRICAN-AMERICAN > 60; GLUCOSE,RANDOM 379 mg/dL (75-110); POTASSIUM 3.7 MMOL/L (3.6-5.0); SODIUM 142 mmol/l (132-148); TOTAL PROTEIN 6.1 G/DL (6.3-8.2)
[2017-06-04 07:27] VITALS: PULSE 78; RESP 20; TEMP 98.1
--- NOTE | 2017-06-04 07:27 | CP.PCM.PN ---
Subjective - Date & Time of Evaluation Date of Evaluation: 06/04/17 Time of Evaluation: 07:27 - Subjective Subjective: doing well, no complaints. no f/c, n/v/d. no wheezing at present. for dc today Objective - Vital Signs/Intake and Output Vital Signs (last 24 hours): Temp Pulse Resp BP Pulse Ox 97.7 F 70 19 138/87 96 06/04/17 00:03 06/04/17 00:03 06/04/17 00:03 06/04/17 00:03 06/04/17 00:03 - Medications Medications: Current Medications Acetylcysteine (Acetylcysteine 20%) 2 ml INH RBID [facility] Last Admin: 06/03/17 19:20 Dose: 2 ml Albuterol Sulfate (Albuterol 0.083% Inhal Dary (2.5 Mg/3 Ml) Ud) 2.5 mg INH RQ4 [facility] Last Admin: 06/04/17 04:37 Dose: 2.5 mg Atenolol (Tenormin) 50 mg PO DAILY [facility] Last Admin: 06/03/17 08:33 Dose: 50 mg Chlorthalidone (Hygroton) 25 mg PO DAILY [facility] Last Admin: 06/03/17 08:32 Dose: 25 mg Enoxaparin Sodium (Lovenox) 40 mg SC DAILY [facility] PRN Reason: Protocol Last Admin: 06/03/17 08:32 Dose: 40 mg Methylprednisolone 40 mg/ (Sodium Chloride) 50 mls @ 100 mls/hr IVPB Q6 [facility] Last Admin: 06/04/17 03:47 Dose: 100 mls/hr Potassium Chloride/Sodium Chloride (Potassium Chl 20 Meq In Ns) 1,000 mls @ 148.515 mls/hr IV .Q6H44M [facility] Last Admin: 06/04/17 01:24 Dose: Not Given Insulin Human Regular (Humulin R) 0 units SC ACHS [facility] PRN Reason: Protocol Last Admin: 06/03/17 21:42 Dose: Not Given Metformin HCl (Glucophage) 500 mg PO BRK [facility] Last Admin: 06/03/17 08:30 Dose: 500 mg Montelukast Sodium (Singulair) 10 mg PO DAILY [facility] Last Admin: 06/03/17 08:33 Dose: 10 mg Pravastatin Sodium (Pravachol) 20 mg PO DAILY [facility] Last Admin: 06/03/17 08:32 Dose: 20 mg Promethazine HCl/Dextromethorphan (Phenergan Dm Syrup) 10 ml PO Q6 PRN PRN Reason: Cough Fluticasone/Salmeterol (Advair Diskus 250/50) 1 puff INH BID PRN PRN Reason: Wheezing - Labs Labs: 06/04/17 05:25 06/04/17 05:25 PT 11.2 Seconds (9.8-13.1) 06/01/17 22:40 INR 1.1 (0.9-1.2) 06/01/17 22:40 APTT 31.9 Seconds (25.6-37.1) 06/01/17 22:40 - Constitutional Appears: Well, Non-toxic, No Acute Distress - Head Exam Head Exam: ATRAUMATIC, NORMAL INSPECTION, NORMOCEPHALIC - Eye Exam Eye Exam: EOMI, Normal appearance, PERRL Pupil Exam: NORMAL ACCOMODATION, PERRL - ENT Exam ENT Exam: Mucous Membranes Moist, Normal Exam - Neck Exam Neck Exam: Full ROM, Normal Inspection. absent: Lymphadenopathy - Respiratory Exam Respiratory Exam: Clear to Ausculation Bilateral, NORMAL BREATHING PATTERN - Cardiovascular Exam Cardiovascular Exam: REGULAR RHYTHM, RRR, +S1, +S2. absent: Murmur - GI/Abdominal Exam GI & Abdominal Exam: Soft, Normal Bowel Sounds. absent: Tenderness - Extremities Exam Extremities Exam: Full ROM, Normal Capillary Refill, Normal Inspection. absent : Joint Swelling, Pedal Edema - Back Exam Back Exam: NORMAL INSPECTION - Neurological Exam Neurological Exam: Alert, Awake, CN II-XII Intact, Normal Gait, Oriented x3 - Psychiatric Exam Psychiatric exam: Normal Affect, Normal Mood - Skin Skin Exam: Dry, Intact, Normal Color, Warm Assessment and Plan (1) Status asthmaticus Status: Acute (2) DVT prophylaxis Status: Acute - Assessment and Plan (Free Text) Assessment: (1) Status asthmaticus Assessment and Plan: nasal o2 prn, ambulate w/o pranav pham today nebs, steroids pulm consult Status: Acute (2) DVT prophylaxis Assessment and Plan: scd and aehose ambulation as tolerated lovenox Status: Acute 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
[2017-06-04] MEDS: Acetylcysteine 20% Inhal Soln (4ml) INH SCH (07:55)
[2017-06-04 08:29] VITALS: BP 124/74
[2017-06-04] MEDS: Pravastatin Sodium 20 MG TAB PO SCH (08:29)
[2017-06-04] MEDS: Enoxaparin 40 mg Syringe SC SCH (08:29)
[2017-06-04] MEDS: Insulin Regular 100 units/ml SC SCH ×2 (08:30→11:42)
--- NOTE | 2017-06-04 09:45 | CP.PCM.PN ---
Subjective - Date & Time of Evaluation Date of Evaluation: 06/04/17 Time of Evaluation: 09:45 - Subjective Subjective: FEELS BETTER SOB IMPROVED Objective - Vital Signs/Intake and Output Vital Signs (last 24 hours): Temp Pulse Resp BP Pulse Ox 98.1 F 78 20 124/74 96 06/04/17 07:27 06/04/17 08:28 06/04/17 07:27 06/04/17 08:28 06/04/17 07:27 - Medications Medications: Current Medications Acetylcysteine (Acetylcysteine 20%) 2 ml INH RBID [facility] Last Admin: 06/04/17 07:55 Dose: 2 ml Albuterol Sulfate (Albuterol 0.083% Inhal Dary (2.5 Mg/3 Ml) Ud) 2.5 mg INH RQ4 [facility] Last Admin: 06/04/17 07:56 Dose: 2.5 mg Atenolol (Tenormin) 50 mg PO DAILY [facility] Last Admin: 06/04/17 08:28 Dose: 50 mg Chlorthalidone (Hygroton) 25 mg PO DAILY [facility] Last Admin: 06/04/17 08:28 Dose: 25 mg Enoxaparin Sodium (Lovenox) 40 mg SC DAILY [facility] PRN Reason: Protocol Last Admin: 06/04/17 08:29 Dose: 40 mg Methylprednisolone 40 mg/ (Sodium Chloride) 50 mls @ 100 mls/hr IVPB Q6 [facility] Last Admin: 06/04/17 09:14 Dose: 100 mls/hr Potassium Chloride/Sodium Chloride (Potassium Chl 20 Meq In Ns) 1,000 mls @ 148.515 mls/hr IV .Q6H44M [facility] Last Admin: 06/04/17 08:29 Dose: Not Given Insulin Human Regular (Humulin R) 0 units SC ACHS [facility] PRN Reason: Protocol Last Admin: 06/04/17 08:30 Dose: 5 units Metformin HCl (Glucophage) 500 mg PO BRK [facility] Last Admin: 06/04/17 08:27 Dose: 500 mg Montelukast Sodium (Singulair) 10 mg PO DAILY [facility] Last Admin: 06/04/17 08:28 Dose: 10 mg Pravastatin Sodium (Pravachol) 20 mg PO DAILY [facility] Last Admin: 06/04/17 08:29 Dose: 20 mg Promethazine HCl/Dextromethorphan (Phenergan Dm Syrup) 10 ml PO Q6 PRN PRN Reason: Cough Last Admin: 06/04/17 08:27 Dose: 10 ml Fluticasone/Salmeterol (Advair Diskus 250/50) 1 puff INH BID PRN PRN Reason: Wheezing - Labs Labs: 06/04/17 05:25 06/04/17 05:25 PT 11.2 Seconds (9.8-13.1) 06/01/17 22:40 INR 1.1 (0.9-1.2) 06/01/17 22:40 APTT 31.9 Seconds (25.6-37.1) 06/01/17 22:40 - Constitutional Appears: No Acute Distress - Head Exam Head Exam: ATRAUMATIC, NORMAL INSPECTION, NORMOCEPHALIC - Eye Exam Eye Exam: EOMI, Normal appearance, PERRL Pupil Exam: NORMAL ACCOMODATION, PERRL - ENT Exam ENT Exam: Mucous Membranes Moist, Normal Exam - Neck Exam Neck Exam: Full ROM, Normal Inspection. absent: Lymphadenopathy - Respiratory Exam Respiratory Exam: Clear to Ausculation Bilateral, NORMAL BREATHING PATTERN - Cardiovascular Exam Cardiovascular Exam: REGULAR RHYTHM, +S1, +S2. absent: Murmur - GI/Abdominal Exam GI & Abdominal Exam: Soft, Normal Bowel Sounds. absent: Tenderness - Rectal Exam Rectal Exam: NORMAL INSPECTION - Extremities Exam Extremities Exam: Full ROM, Normal Capillary Refill, Normal Inspection. absent : Joint Swelling, Pedal Edema - Back Exam Back Exam: NORMAL INSPECTION - Neurological Exam Neurological Exam: Alert, Awake, CN II-XII Intact, Normal Gait, Oriented x3 - Psychiatric Exam Psychiatric exam: Normal Affect, Normal Mood - Skin Skin Exam: Dry, Intact, Normal Color, Warm Assessment and Plan - Assessment and Plan (Free Text) Assessment: ASTHMA IMPROVED Plan: OK TO D/C HOME FROM [facility] MAINTAIN ON PO STEROIDS AND TAPER OVER 3 WEEKS WILL SIGN OFF CASE AND SEE AGAIN AT YOUR REQUEST
[2017-06-04] MEDS ORDERED: Insulin Regular 100 units/ml SC ONE (11:26)
--- NOTE | 2017-06-04 17:11 | CP.PCM.DIS ---
Provider - Provider Date of Admission: 06/01/17 23:10 Attending physician: Kalia Doan MD Time Spent in preparation of Discharge (in minutes): 15 Diagnosis - Discharge Diagnosis (1) Status asthmaticus Status: Acute (2) DVT prophylaxis Status: Acute Hospital Course - Lab Results Lab Results: Micro Results 06/02/17 09:40 Naris MRSA Culture (Admit) - Final MRSA NOT DETECTED 06/03/17 07:17 Sputum Gram Stain - Final 06/01/17 22:40 Blood-Venous Blood Culture - Preliminary NO GROWTH AFTER 48 HOURS 06/01/17 22:55 Blood-Venous Blood Culture - Preliminary NO GROWTH AFTER 48 HOURS Most Recent Lab Values WBC 11.6 K/uL (4.8-10.8) H 06/04/17 05:25 RBC 4.97 Mil/uL (4.40-5.90) 06/04/17 05:25 Hgb 13.1 g/dL (12.0-18.0) 06/04/17 05:25 Hct 41.2 % (35.0-51.0) 06/04/17 05:25 MCV 82.8 fl (80.0-94.0) 06/04/17 05:25 MCH 26.4 pg (27.0-31.0) L 06/04/17 05:25 MCHC 31.9 g/dL (33.0-37.0) L 06/04/17 05:25 RDW 14.1 % (11.5-14.5) 06/04/17 05:25 Plt Count 190 K/uL (130-400) 06/04/17 05:25 MPV 11.0 fl (7.2-11.7) 06/04/17 05:25 Neut % (Auto) 87.1 % (50.0-75.0) H 06/04/17 05:25 Lymph % (Auto) 7.5 % (20.0-40.0) L 06/04/17 05:25 [place] % (Auto) 5.4 % (0.0-10.0) 06/04/17 05:25 Eos % (Auto) 0.0 % (0.0-4.0) 06/04/17 05:25 Baso % (Auto) 0.0 % (0.0-2.0) 06/04/17 05:25 Neut # 10.1 K/uL (1.8-7.0) H 06/04/17 05:25 Lymph # 0.9 K/uL (1.0-4.3) L 06/04/17 05:25 [place] # 0.6 K/uL (0.0-0.8) 06/04/17 05:25 Eos # 0.0 K/uL (0.0-0.7) 06/04/17 05:25 Baso # 0.0 K/uL (0.0-0.2) 06/04/17 05:25 Neutrophils % (Manual) 87 % (42-75) H 06/03/17 11:45 Band Neutrophils % 3 % (0-2) H 06/03/17 11:45 Lymphocytes % (Manual) 5 % (20-50) L 06/03/17 11:45 Monocytes % (Manual) 5 % (0-10) 06/03/17 11:45 Toxic Granulation Present 06/03/17 11:45 Platelet Estimate Normal (NORMAL) 06/03/17 11:45 Large Platelets Present 06/03/17 11:45 RBC Morphology Normal (NORMAL) 06/03/17 11:45 PT 11.2 Seconds (9.8-13.1) 06/01/17 22:40 INR 1.1 (0.9-1.2) 06/01/17 22:40 APTT 31.9 Seconds (25.6-37.1) 06/01/17 22:40 pCO2 51 mm/Hg (35-45) H 06/02/17 04:35 pO2 111 mm/Hg (80-100) H 06/02/17 04:35 HCO3 27.8 mmol/L (21-28) 06/02/17 04:35 ABG pH 7.38 (7.35-7.45) 06/02/17 04:35 ABG Total CO2 31.8 mmol/L (22-28) H 06/02/17 04:35 ABG O2 Saturation 98.9 % (95-98) H 06/02/17 04:35 ABG O2 Content 20.5 ML/dL (15-23) 06/02/17 04:35 ABG Base Excess 3.8 mmol/L (-2.0-3.0) H 06/02/17 04:35 ABG Hemoglobin 15.2 g/dL (11.7-17.4) 06/02/17 04:35 ABG Carboxyhemoglobin 1.6 % (0.5-1.5) H 06/02/17 04:35 POC ABG HHb (Measured) 1.1 % (0.0-5.0) 06/02/17 04:35 ABG Methemoglobin 1.7 % (0.0-3.0) 06/02/17 04:35 ABG O2 Capacity 20.7 mL/dL (16-24) 06/02/17 04:35 Zoran Test Yes 06/02/17 04:35 ABG Potassium 3.2 mmol/L (3.6-5.2) L 06/01/17 23:45 A-a O2 Difference 110.0 mm/Hg 06/02/17 04:35 Hgb O2 Saturation 95.6 % (95.0-98.0) 06/02/17 04:35 Sodium 140.0 mmol/L (132-148) 06/01/17 23:45 Chloride 101.0 mmol/L (98-107) 06/01/17 23:45 Glucose 328 mg/dL (75-110) H 06/01/17 23:45 Lactate 1.0 mmol/L (0.7-2.1) 06/01/17 23:45 Liter Flow 25 06/02/17 04:35 Vent Mode High flow lpm 06/02/17 04:35 FiO2 40.0 % 06/02/17 04:35 Sodium 142 mmol/l (132-148) 06/04/17 05:25 Potassium 3.7 MMOL/L (3.6-5.0) 06/04/17 05:25 Chloride 102 mmol/L (98-107) 06/04/17 05:25 Carbon Dioxide 24 mmol/L (22-30) 06/04/17 05:25 Anion Gap 20 (10-20) 06/04/17 05:25 BUN 32 mg/dl (9-20) H 06/04/17 05:25 Creatinine 0.9 mg/dL (0.8-1.5) 06/04/17 05:25 Est GFR ( Amer) > 60 06/04/17 05:25 Est GFR (Non-Af Amer) > 60 06/04/17 05:25 POC Glucose (mg/dL) 186 mg/dL (65-110) H 06/04/17 16:29 Random Glucose 379 mg/dL (75-110) H 06/04/17 05:25 Hemoglobin A1c 10.0 % (4.2-6.5) H 06/02/17 05:30 Calcium 8.0 mg/dL (8.4-10.2) L 06/04/17 05:25 Phosphorus 4.6 mg/dl (2.5-4.5) H 06/01/17 22:40 Magnesium 1.9 MG/DL (1.6-2.3) 06/01/17 22:40 Total Bilirubin 0.3 mg/dl (0.2-1.3) 06/04/17 05:25 AST 17 U/L (17-59) 06/04/17 05:25 ALT 22 U/L (21-72) 06/04/17 05:25 Alkaline Phosphatase 93 U/L (38-126) 06/04/17 05:25 Troponin I < 0.0120 ng/mL (0.00-0.120) 06/01/17 22:40 NT-Pro-B Natriuret Pep 74.0 pg/ml (0-900) 06/01/17 22:40 Total Protein 6.1 G/DL (6.3-8.2) L 06/04/17 05:25 Albumin 3.2 g/dL (3.5-5.0) L 06/04/17 05:25 Globulin 2.9 gm/dL (2.2-3.9) 06/04/17 05:25 Albumin/Globulin Ratio 1.1 (1.0-2.1) 06/04/17 05:25 Arterial Blood Potassium 3.2 mmol/L (3.6-5.2) L 06/01/17 23:45 Discharge Exam - Head Exam Head Exam: ATRAUMATIC, NORMAL INSPECTION, NORMOCEPHALIC Discharge Plan - Discharge Medications Prescriptions: predniSONE [Prednisone] 10 mg PO DAILY #50 tab - Follow Up Plan Condition: CRITICAL Disposition: HOME/ ROUTINE Instructions: Prednisone (By mouth), Asthma (DC) Additional Instructions: follow up at [facility] in [facility] day-sunday follow up with pulmonary MD outpatient final dx-asthma exacerbation ambulatory w/o resp distress cleared by pulm for dc meds per med rec Referrals: Braden Up, VONNIE, [employer] ASSIST[employer] [Advanced Practice Nurse] - Dion Marsh MD [Staff Provider] -
== END 2017-06-04 16:30 | disposition home or self-care (01) | DRG 203 ==
LOC: H.ER 22:15 → H.ERHOLD 23:10 → H.ICU/CCU 06-02 00:42 → H.MEDSURG1 06-02 20:36
PROVIDERS: ADMIT Family Medicine; ATTEND Family Medicine
PROC: 3E0F73Z Introduction of Anti-inflammatory into Respiratory Tract, Via Natural or Artificial Opening (ICD-10-PCS; principal; 2017-06-01)
DX: J45.902 Unspecified asthma with status asthmaticus (principal); E11.65 Type 2 diabetes mellitus with hyperglycemia; I10 Essential (primary) hypertension; E87.6 Hypokalemia; E86.0 Dehydration; J06.9 Acute upper respiratory infection, unspecified; E78.5 Hyperlipidemia, unspecified; Z72.0 Tobacco use; Z88.0 Allergy status to penicillin; Z91.81 History of falling

== ENCOUNTER 2017-06-15 15:12 | Inpatient (IN) | payer MEDICARE ==
[2017-06-15] MEDS ORDERED: Sodium Chloride 0.9% 1,000 ML IV STA ×2 (15:48→19:03)
--- NOTE | 2017-06-15 16:31 | ED PDOC ---
Hyperglycemia/Hypoglycemia Time Seen by Provider: 06/15/17 15:21 Chief Complaint (Nursing): High Blood Sugar Chief Complaint (Provider): High Blood Sugar History Per: Patient, Family History/Exam Limitations: no limitations Current Symptoms Are (Timing): Still Present : The patient does not have any of the infectious symptoms listed except for those marked. Additional Complaint(s): Goyo Knott is a 66 year old male with a history of diabetes, hypertension, high cholesterol, asthma, and subdural hematoma that was brought to ED via EMS and presents for an evaluation of elevated blood sugar. Patient cannot verify the duration of his elevated blood sugars as he states he does not check his blood sugar at home, and neither does his family. He states that he takes Metformin for his diabetes, and claims that he has taken his medication daily, but his family states that he does not adhere to his medication schedule, and that there are three full bottles of Metformin at the patient's home, all of which were filled a few months ago and have not been used. Patient denies any pain but states that he is feeling weak. He family reports that he does not seem like himself, and that he seems "agitated and confused." He denies any fever, vomiting, diarrhea, chest pain, abdominal pain, or shortness of breath. He states that he has lost weight, and that he has also been coughing for an unspecified amount of time. Of Note: Patient has a history of admissions to [facility], but for asthma exacerbation. PMD: [facility] Past Medical History Reviewed: Historical Data, Nursing Documentation, Vital Signs Vital Signs: Last Vital Signs Temp 95.7 F L 06/15/17 15:55 Pulse 99 H 06/15/17 15:55 Resp 18 06/15/17 15:55 BP 140/75 06/15/17 15:55 Pulse Ox 96 06/15/17 15:55 - Medical History PMH: Asthma, Diabetes, HTN, Hypercholesterolemia Denies: Chronic Kidney Disease Other PMH: Subdural hematoma - Surgical History Surgical History: No Surg Hx - Family History Family History: States: Unknown Family Hx - Living Arrangements Living Arrangements: Alone - Home Medications Home Medications: Ambulatory Orders Medication Instructions Recorded Albuterol 0.083% [Albuterol 0.083% 3 ml IH Q6H PRN #30 neb 03/18/16 Inhal Dary (2.5 mg/3 ml) UD] Atenolol/Chlorthalidone 1 tab PO DAILY 05/06/17 [Atenolol-Chlorthalidone 50-25] Pravastatin Sodium [Pravachol] 20 mg PO DAILY 05/06/17 Albuterol HFA [Ventolin HFA 90 2 puff IH [id number] PRN #1 bottle 05/07/17 mcg/actuation (8 g)] Fluticasone/Salmeterol [Advair 1 puff IH Q12H 06/01/17 250-50 Diskus] predniSONE [Prednisone] 10 mg PO DAILY #50 tab 06/04/17 metFORMIN [glucOPHAGE] 500 mg PO DAILY 06/15/17 - Allergies Allergies/Adverse Reactions: Allergies Allergy/AdvReac Type Severity Reaction Status Date / Time ceftriaxone [From Rocephin] Allergy Severe RASH Verified 06/16/17 01:58 Penicillins Allergy RASH Verified 06/01/17 22:52 Review of Systems ROS Statement: Except As Marked, All Systems Reviewed And Found Negative Constitutional: Positive for: Weakness. Negative for: Fever Cardiovascular: Negative for: Chest Pain Respiratory: Positive for: Cough. Negative for: Shortness of Breath Gastrointestinal: Negative for: Vomiting, Abdominal Pain, Diarrhea Physical Exam - Reviewed Nursing Documentation Reviewed: Yes Vital Signs Reviewed: Yes - Physical Exam Appears: Positive for: No Acute Distress (Patient appears ill) Head Exam: Positive for: ATRAUMATIC, NORMOCEPHALIC Skin: Positive for: Normal Color, Warm, Dry Eye Exam: Positive for: Normal appearance, EOMI, PERRL. Negative for: Scleral icterus ENT: Positive for: Other (Dry mucous membranes). Negative for: Normal ENT Inspection Neck: Positive for: Normal, Painless ROM, Supple Cardiovascular/Chest: Positive for: Regular Rate, Rhythm, Tachycardia. Negative for: Edema Respiratory: Positive for: Normal Breath Sounds. Negative for: Rales, Wheezing , Respiratory Distress Gastrointestinal/Abdominal: Positive for: Normal Exam, Soft. Negative for: Tenderness, Distended Back: Positive for: Normal Inspection Extremity: Positive for: Normal ROM. Negative for: Pedal Edema, Swelling Neurologic/Psych: Positive for: Alert, backing in machine tender II-XII (intact), Oriented. Negative for: Motor/Sensory Deficits - Laboratory Results Result Diagrams: 06/16/17 06:00 06/16/17 08:30 - ECG O2 Sat by Pulse Oximetry: 96 (RA) Pulse Ox Interpretation: Normal - Critical Care Total Time (In Min): 60 Medical Decision Making Medical Decision Making: Impression: Diabetic Hyperglycemia, Diff include DKA, CVA dehydration, Intra-abdominal Infection, Pneumonia, sepsis Plan: * Chest X-Ray * EKG * CMP * CBC * ABG Shock Panel * Troponin I * Alcohol Serum * Urine Drug Screen * Urine Dip * Blood culture * NaCl 1000 mLs at 1000 mLs/hr * Reevaluation * Dx HHS, possible DKA , pneumonia Plan Rocephine IV azithro IV insulin drip IV IVF admit to ICU EKG shows sinus tachycardia at a rate of 107 bpm, normal QRS, nonspecific ST changes. Chest X-Ray IMPRESSION: Suspect minor left basilar atelectasis with hazy appearance of the left CP angle region. Developing infiltrate and possibly small effusion could be excluded followup radiographs. Mid. See above discussion for additional details Scribe Attestation: Documented by Tania Farooq, acting as a scribe for Julien Buchanan MD. Provider Scribe Attestation: All medical record entries made by the Scribe were at my direction and personally dictated by me. I have reviewed the chart and agree that the record accurately reflects my personal performance of the history, physical exam, medical decision making, and the department course for this patient. I have also personally directed, reviewed, and agree with the discharge instructions and disposition. Disposition - Clinical Impression Clinical Impression: Diabetic complication, Hyperglycemic hyperosmolar nonketotic coma, Pneumonia, Severe sepsis, Hypothermia - Patient ED Disposition Is Patient to be Admitted: Yes Discussed With : Braden Up Doctor Will See Patient In The: Hospital Counseled Patient/Family Regarding: Studies Performed, Diagnosis - Disposition Disposition Time: 18:00 Condition: CRITICAL - Pt Status Changed To: Hospital Disposition Of: Inpatient - Admit Certification Admit to Inpatient:: After my assessment, the patient will require hospitalization for at least two midnights. This is because of the severity of symptoms shown, intensity of services needed, and/or the medical risk in this patient being treated as an outpatient. - POA Present On Arrival: Poor Glycemic Control
[2017-06-15 16:32] LABS: ABG ALLEN TEST YES; ARTERIAL BLOOD GAS HCO3 11.8 mmol/L (21-28); ARTERIAL BLOOD GAS PH 7.21 (7.35-7.45); ARTERIAL BLOOD GAS PO2 96 mm/Hg (80-100)
--- NOTE | 2017-06-15 16:35 | RAD ---
HISTORY: cough COMPARISON: Comparison chest dated 06/01/2017 the comparison also made with CTA of the chest dated 04/08/2013 the the FINDINGS: LUNGS: Suspect minor left basilar atelectasis with hazy appearance of the left CP angle region. Developing infiltrate and possibly small effusion could be excluded followup radiographs. . . Previously noted tiny nodular density in the left CP angle region is not well delineated due to at aforementioned haziness in this region. PLEURA: As above. No apparent pneumothorax CARDIOVASCULAR: Normal. OSSEOUS STRUCTURES: No re- demonstrated is a scoliotic deformity in the lower thoracic region and slightly convex to the, compensatory for a levoscoliosis in the lumbar region. High VISUALIZED UPPER ABDOMEN: Normal. OTHER FINDINGS: None. IMPRESSION: Suspect minor left basilar atelectasis with hazy appearance of the left CP angle region. Developing infiltrate and possibly small effusion could be excluded followup radiographs. Mid. See above discussion for additional details
[2017-06-15] MEDS ORDERED: Azithromycin 500 MG in Sodium Chloride 0.9% 250 ML IVPB STA (17:18)
[2017-06-15 18:32] LABS: BASO # 0.1 K/uL (0.0-0.2); BASO % 0.5 % (0.0-2.0); EOS % 0.1 % (0.0-4.0); LYMPH # 1.4 K/uL (1.0-4.3); LYMPH % 5.8 % (20.0-40.0); MEAN CELL VOLUME 85.7 fl (80.0-94.0); MEAN CORPUSCULAR HEMOGLOBIN 25.8 pg (27.0-31.0); MEAN CORPUSCULAR HGB CONC 30.1 g/dL (33.0-37.0); MEAN PLATELET VOLUME 12.7 fl (7.2-11.7); MONO # 1.6 K/uL (0.0-0.8); MONO % 6.9 % (0.0-10.0); NEUT # 20.4 K/uL (1.8-7.0); NEUT % 86.7 % (50.0-75.0); PLATELET COUNT 231 K/uL (130-400); RED CELL DISTRIBUTION WIDTH 15.5 % (11.5-14.5); WHITE BLOOD COUNT 23.6 K/uL (4.8-10.8)
[2017-06-15 18:43] LABS: ALB/GLOB RATIO 1.1 (1.0-2.1); ALCOHOL SERUM < 10 mg/dl (0-10); ALKALINE PHOSPHATASE 97 U/L (38-126); ALT/SGPT 23 U/L (21-72); AST/SGOT 26 U/L (17-59); BILIRUBIN,TOTAL 0.7 mg/dl (0.2-1.3); BLOOD UREA NITROGEN 75 mg/dl (9-20); CALCIUM 7.7 mg/dL (8.4-10.2); CARBON DIOXIDE 13 mmol/L (22-30); CHLORIDE 107 mmol/L (98-107); GFR AFRICAN-AMERICAN 46; SODIUM 147 mmol/l (132-148); TOTAL PROTEIN 6.2 G/DL (6.3-8.2)
[2017-06-15 18:50] LABS: PARTIAL THROMBOPLASTIN TIME 26.3 Seconds (25.6-37.1)
[2017-06-15] MEDS ORDERED: Glucagon Recombinant 1 mg Inj IM PRN (18:55)
[2017-06-15] MEDS ORDERED: Dextrose 50% SYRINGE Inj (50 ml) IV PRN (18:55)
[2017-06-15 18:57] LABS: GLUCOSE,RANDOM 717 mg/dL (75-110)
[2017-06-15] MEDS ORDERED: Potassium CL 10mEq/100ml 100 ML IVPB ONE (18:57)
[2017-06-15 18:58] LABS: POTASSIUM 4.8 MMOL/L (3.6-5.0)
[2017-06-15] MEDS ORDERED: Sodium Chloride 3% for Inhalation 4 ML VIAL.NEB IH PRN (19:03)
[2017-06-15] MEDS ORDERED: cefTRIAXone (Rocephin) 1 gm Inj ONE (19:07)
[2017-06-15] MEDS ORDERED: Albuterol 0.083% Inhal Sol (2.5 mg/3 mL) UD IH PRN (19:16)
--- NOTE | 2017-06-15 19:57 | CP.PCM.CON ---
History of Present Illness - History of Present Illness History of Present Illness: PMD: [facility] Reason for Consult: Critical care management Chief Complaint: High Blood Sugar The patient is seen and examined in the ED HPI: The hx is obtained from review of the medical hx as the patient is sedated after being given Ativan for agitation. He is a 66 years old male with hx of HTN, Asthma, Subdural Hematoma and DM II who was brought to the ED because of elevated blood Glucose. He is noncompliant with checking his blood glucose and in taking his Metformin. He had been feeling weak and according to the family, he does not seem himself and has been agitated and confused. Prior to the sedation, the patient denied fever, vomiting, diarrhea, chest and abdominal pain , SOB, and dysuria. He referred that he had been coughing for some time. PMH: Asthma; HTN; DM II; HLD; Rhight Frontal Subarachnoid hemorrhage; Left temporal bone Fracture; Syncope PSH: No surgical history SH: former Smoker; No illegal drug use; No Alcohol use; Live with family FH: States: Unknown Family Hx Allergies: Penicillin Review of Systems - Review of Systems Systems not reviewed;Unavailable: Altered Mental Status Review of Systems: Review of systems is limited as the patient is now sedated - Constitutional Constitutional: absent: Chills, Fever, Headache - Cardiovascular Cardiovascular: absent: Chest Pain, Dyspnea - Gastrointestinal Gastrointestinal: absent: Constipation, Diarrhea, Nausea, Vomiting Past Patient History - Infectious Disease Hx of Infectious Diseases: None - Past Medical History & Family History Past Medical History?: Yes - Past Social History Smoking Status: Former Smoker Chewing Tobacco Use: No Cigar Use: No Alcohol: None Drugs: Denies Home Situation {Lives}: With Family - CARDIAC Hx Hypercholesterolemia: Yes Hx Hypertension: Yes - PULMONARY Hx Asthma: Yes - NEUROLOGICAL Hx Neurological Disorder: No Other/Comment: Right frontal Subaracnoid hemorrhage - HEENT Hx HEENT Problems: No - RENAL Hx Chronic Kidney Disease: No - ENDOCRINE/METABOLIC Hx Endocrine Disorders: Yes Hx Diabetes Mellitus Type 2: Yes - HEMATOLOGICAL/ONCOLOGICAL Hx Blood Disorders: No - INTEGUMENTARY Hx Dermatological Problems: No - MUSCULOSKELETAL/RHEUMATOLOGICAL Hx Musculoskeletal Disorders: Yes Hx Falls: Yes (SYNCOPAL EPISODE TODAY) Other/Comment: last year fell at home head injury/sutures - GASTROINTESTINAL Hx Gastrointestinal Disorders: No - GENITOURINARY/GYNECOLOGICAL Hx Genitourinary Disorders: No - PSYCHIATRIC Hx Psychophysiologic Disorder: No Hx Substance Use: No - SURGICAL HISTORY Hx Surgeries: No - ANESTHESIA Hx Anesthesia: No Hx Anesthesia Reactions: No Hx Malignant Hyperthermia: No Meds Allergies/Adverse Reactions: Allergies Allergy/AdvReac Type Severity Reaction Status Date / Time Penicillins Allergy RASH Verified 06/01/17 22:52 - Medications Medications: Current Medications Albuterol Sulfate (Albuterol 0.083% Inhal Dary (2.5 Mg/3 Ml) Ud) 2.5 mg IH Q6H PRN PRN Reason: Shortness of Breath Dextrose (Dextrose 50% Inj) 0 ml IV STAT PRN; Protocol PRN Reason: Hyglycemia Protocol Dextrose (Glutose 15) 0 gm PO ONCE PRN; Protocol PRN Reason: Hypoglycemia Protocol Glucagon (Glucagen Diagnostic Kit) 0 mg IM STAT PRN; Protocol PRN Reason: Hypoglycemia Protocol Home Med (Atenolol/Chlorthalidone [Atenolol-Chlorthalidone 50-25]) 1 tab PO DAILY [facility] Insulin Human Regular 100 (units/ Sodium Chloride) 101 mls @ 5.05 mls/hr IV .Q20H ALISSON; 5 UNITS/HR PRN Reason: Protocol Last Admin: 06/15/17 19:44 Dose: 5.05 mls/hr Sodium Chloride (Sodium Chloride 0.9%) 1,000 mls @ 1,000 mls/hr IV .Q1H STA Stop: 06/15/17 20:02 Last Admin: 06/15/17 19:05 Dose: 1,000 mls/hr Pravastatin Sodium (Pravachol) 20 mg PO DAILY [facility] Fluticasone/Salmeterol (Advair Diskus 250/50) 1 puff IH Q12H [facility] Physical Exam - Constitutional Appears: No Acute Distress - Head Exam Head Exam: ATRAUMATIC, NORMAL INSPECTION, NORMOCEPHALIC - Eye Exam Additional comments: Patient sedated. Pupils 3MM reacting to light - ENT Exam ENT Exam: Mucous Membranes Dry - Neck Exam Neck exam: Negative for: Lymphadenopathy, Tenderness, Thyromegaly - Respiratory Exam Respiratory Exam: Clear to Auscultation Bilateral. absent: Rales, Rhonchi, Wheezes - Cardiovascular Exam Cardiovascular Exam: REGULAR RHYTHM, RRR, +S1, +S2. absent: JVD, Rubs - GI/Abdominal Exam GI & Abdominal Exam: Normal Bowel Sounds, Soft. absent: Mass, Tenderness - Rectal Exam Rectal Exam: Deferred - Extremities Exam Extremities exam: Negative for: pedal edema Additional comments: Ulceration at distal 1/2 of the left leg. - Back Exam Back exam: NORMAL INSPECTION. absent: muscle spasm - Neurological Exam Additional comments: Sedated, Moving both lower and upper extremities. no facial droop, No focal neurological finding. - Psychiatric Exam Additional comments: Sedated - Skin Skin Exam: Dry, Intact, Normal Color, Warm Results - Vital Signs Recent Vital Signs: Last Vital Signs Temp 96.1 F L 06/15/17 19:38 Pulse 107 H 06/15/17 19:54 Resp 19 06/15/17 19:54 BP 114/75 06/15/17 19:54 Pulse Ox 98 06/15/17 19:54 - Labs Result Diagrams: 06/15/17 18:25 06/15/17 18:30 Labs: Laboratory Results - last 24 hr 06/15/17 06/15/17 06/15/17 16:25 18:25 18:25 WBC 23.6 H D RBC 6.07 H Hgb 15.6 D Hct 52.0 H MCV 85.7 D MCH 25.8 L MCHC 30.1 L RDW 15.5 H Plt Count 231 MPV 12.7 H Neut % (Auto) 86.7 H Lymph % (Auto) 5.8 L [place] % (Auto) 6.9 Eos % (Auto) 0.1 Baso % (Auto) 0.5 Neut # 20.4 H Lymph # 1.4 [place] # 1.6 H Eos # 0.0 Baso # 0.1 PT 11.1 INR 1.0 APTT 26.3 pCO2 23 L pO2 96 HCO3 11.8 L ABG pH 7.21 L ABG Total CO2 9.9 L ABG O2 Saturation 99.2 H ABG Base Excess -16.8 L [place]or[place] Test Yes ABG Potassium 4.5 A-a O2 Difference 25.0 Sodium 144.0 Chloride 101.0 Glucose > 750 H* D Lactate 3.2 H FiO2 21.0 Crit Value Called To Julien recio md Crit Value Called By 302 Crit Value Read Back Y Blood Gas Notified Time 1631 Potassium Carbon Dioxide Anion Gap BUN Creatinine Est GFR ( Amer) Est GFR (Non-Af Amer) Random Glucose Calcium Total Bilirubin AST ALT Alkaline Phosphatase Total Creatine Kinase Troponin I Total Protein Albumin Globulin Albumin/Globulin Ratio Arterial Blood Potassium 4.5 Urine Opiates Screen Urine Methadone Screen Ur Barbiturates Screen Ur Phencyclidine Scrn Ur Amphetamines Screen U Benzodiazepines Scrn U Oth Cocaine Metabols U Cannabinoids Screen Alcohol, Quantitative 06/15/17 06/15/17 18:30 18:34 WBC RBC Hgb Hct MCV MCH MCHC RDW Plt Count MPV Neut % (Auto) Lymph % (Auto) [place] % (Auto) Eos % (Auto) Baso % (Auto) Neut # Lymph # [place] # Eos # Baso # PT INR APTT pCO2 pO2 HCO3 ABG pH ABG Total CO2 ABG O2 Saturation ABG Base Excess [place] Test ABG Potassium A-a O2 Difference Sodium 147 Chloride 107 Glucose Lactate FiO2 Crit Value Called To Crit Value Called By Crit Value Read Back Blood Gas Notified Time Potassium 4.8 Carbon Dioxide 13 L Anion Gap 32 H BUN 75 H Creatinine 1.8 H Est GFR ( Amer) 46 Est GFR (Non-Af Amer) 38 Random Glucose 717 H* D Calcium 7.7 L Total Bilirubin 0.7 AST 26 ALT 23 Alkaline Phosphatase 97 Total Creatine Kinase 63 Troponin I 0.0600 Total Protein 6.2 L Albumin 3.2 L Globulin 3.0 Albumin/Globulin Ratio 1.1 Arterial Blood Potassium Urine Opiates Screen Negative Urine Methadone Screen Negative Ur Barbiturates Screen Negative Ur Phencyclidine Scrn Negative Ur Amphetamines Screen Negative U Benzodiazepines Scrn Negative U Oth Cocaine Metabols Negative U Cannabinoids Screen Negative Alcohol, Quantitative < 10 - Imaging and Cardiology Chest x-ray Status: Image reviewed by me, Report reviewed by me Additional comment: Left costophrenic angle opacity of Atelectasis and Pleural effusion. Assessment & Plan - Assessment and Plan (Free Text) Assessment: #. Hyperosmolar Hyperglycemic State #. Metabolic Acidosis r/o DKA #. Dehydration #. leukocytosis Plan: 66 years old male with hx of HTN, Asthma, Subdural Hematoma and DM II who was brought to the ED because of elevated blood Glucose. He is noncompliant with checking his blood glucose and in taking his Metformin. The family referred that he was agitated and confused. In the ED his Blood Glucose was 717mg/dl. #. Hyperosmolar Hyperglycemic State due to poor compliance - 2 liters of Normal Saline given in Ed. I will give another 2 liters of normal saline , then continue with normal saline at 250 mls /Hr - follow Blood sugar #. Metabolic Acidosis r/o DKA - Admit to ICU - Follow serum or urine acetone results. - IV Insulin titrate to DKA protocol with Accucheck q1H - BMP /Magnesium and phosphorus q4hrs - Convert IV Fluids to D5/NS if Blood glucose less than 250mg/dl and AG still elevated #. Dehydration due to Hyperglycemia - IV Fluid - follow Renal labs #. leukocytosis with Elevated Lactate with infiltrate vs Atelectasis at the left costophrenic angle, r/o sepsis. Most likely the Leukocytosis is from the DKA and the lactate also related to the DKA - Patient received Azithromycin and Ceftriaxone in the Ed. Continue with Levofloxacin imperially - IV Fluids - Follow up Lactic acid - follow Blood and Urine culture and UA #. Stress ulcer prophylaxis with Pantoprazole #. DVT Prophylaxis with SCD #.Cose Status: Full - Date & Time Date: 06/15/17 Time: 19:57
[2017-06-15 20:02] LABS: NEUTROPHIL 82 % (42-75); TOTAL CELLS COUNTED 100
[2017-06-15 20:03] LABS: LARGE PLATELETS PRESENT
[2017-06-15 20:04] LABS: RBC URINE 3 /hpf (0-3); URINE BACTERIA RARE (<OCC); URINE BILIRUBIN NEGATIVE (NEGATIVE); URINE BLOOD NEGATIVE (NEGATIVE); URINE COLOR YELLOW (YELLOW); URINE GLUCOSE (UA) >=500 mg/dL (Normal); URINE KETONE 20 mg/dL (NEGATIVE); URINE LEUKOCYTE ESTERASE NEG Leu/uL (Negative); URINE PROTEIN NEGATIVE (NEGATIVE); URINE UROBILINOGEN 0.2-1.0 mg/dL (0.2-1.0); WBC URINE 2 /hpf (0-5)
[2017-06-15] MEDS ORDERED: Azithromycin 500 MG IV IVPB ONE (20:25)
[2017-06-15 20:32] LABS: VENOUS BLOOD GAS BASE EXCESS -14.9 mmol/L (0.0-2.0); VENOUS BLOOD GAS PCO2 47 mmHg (40-60)
[2017-06-15] MEDS ORDERED: Sodium Chloride 0.9% 1,000 ML IV SCH (20:45)
[2017-06-15] MEDS: Fluticasone-Salmeterol 250-50mcg Diskus IH SCH (21:13)
[2017-06-15 22:08] LABS: CALCIUM 7.9 mg/dL (8.4-10.2); POTASSIUM 4.5 MMOL/L (3.6-5.0)
[2017-06-15 23:18] VITALS: BMI 20.5
[2017-06-16] MEDS ORDERED: DiphenhydrAMINE 50 mg/ml Inj IVP STA (01:47)
[2017-06-16 02:13] LABS: BLOOD UREA NITROGEN 66 mg/dl (9-20); CARBON DIOXIDE 21 mmol/L (22-30); CHLORIDE 118 mmol/L (98-107); GFR AFRICAN-AMERICAN > 60; GLUCOSE,RANDOM 329 mg/dL (75-110); MAGNESIUM 2.4 MG/DL (1.6-2.3); PHOSPHOROUS 2.6 mg/dl (2.5-4.5); POTASSIUM 4.4 MMOL/L (3.6-5.0); SODIUM 157 mmol/l (132-148)
[2017-06-16] MEDS ORDERED: Sodium Chloride 0.45% 1,000 ML IV SCH ×2 (04:15→10:06)
--- NOTE | 2017-06-16 06:35 | CARD ---
APPROVED REPORT EKG Measurement Heart [id number] SD 70P28 [id number] <Conclusion> Sinus tachycardia with short SD ST & T wave abnormality, consider lateral ischemia Prolonged QT Abnormal ECG
[2017-06-16 07:28] LABS: BASO % 0.1 % (0.0-2.0); EOS % 0.1 % (0.0-4.0); HEMATOCRIT 45.1 % (35.0-51.0); LYMPH % 10.6 % (20.0-40.0); MEAN CELL VOLUME 80.9 fl (80.0-94.0); MEAN CORPUSCULAR HEMOGLOBIN 26.5 pg (27.0-31.0); MEAN CORPUSCULAR HGB CONC 32.8 g/dL (33.0-37.0); MEAN PLATELET VOLUME 11.1 fl (7.2-11.7); MONO # 1.2 K/uL (0.0-0.8); MONO % 6.5 % (0.0-10.0); NEUT # 15.5 K/uL (1.8-7.0); NEUT % 82.7 % (50.0-75.0); NRBC % 0.1 % (0.0-0.0); RED CELL DISTRIBUTION WIDTH 14.1 % (11.5-14.5); WHITE BLOOD COUNT 18.7 K/uL (4.8-10.8)
--- NOTE | 2017-06-16 07:31 | CP.PCM.HP ---
History of Present Illness - History of Present Illness History of Present Illness: pt admitted for dka, pna, sepsis. at present somnolent after benadryl for rash r /t rocephin. resps evena dn unlabored. no rash at this time. no f/, n/v/d. bw noted w/ severely elevated glucose, fsbg this am 107. imaging noted. pt in icu. Present on Admission - Present on Admission Any Indicators Present on Admission: Yes History of Uncontrolled Diabetes: Yes Review of Systems - EENT Eyes: Diplopia - Respiratory Respiratory: As Per HPI, Cough - Endocrine Endocrine: As Per HPI Past Patient History - Infectious Disease Hx of Infectious Diseases: None - Past Medical History & Family History Past Medical History?: Yes - Past Social History Smoking Status: Never Smoked - CARDIAC Hx Hypercholesterolemia: Yes Hx Hypertension: Yes - PULMONARY Hx Asthma: Yes Hx Pneumonia: Yes - NEUROLOGICAL Hx Neurological Disorder: No Other/Comment: Right frontal Subaracnoid hemorrhage - HEENT Hx HEENT Problems: No - RENAL Hx Chronic Kidney Disease: No - ENDOCRINE/METABOLIC Hx Endocrine Disorders: Yes Hx Diabetes Mellitus Type 2: Yes - HEMATOLOGICAL/ONCOLOGICAL Hx Blood Disorders: No Hx AIDS: No Hx Human Immunodeficiency Virus (HIV): No - INTEGUMENTARY Hx Dermatological Problems: No - MUSCULOSKELETAL/RHEUMATOLOGICAL Hx Musculoskeletal Disorders: Yes Hx Falls: Yes (SYNCOPAL EPISODE TODAY) Other/Comment: Last year fell at home head injury/sutures - GASTROINTESTINAL Hx Gastrointestinal Disorders: No - GENITOURINARY/GYNECOLOGICAL Hx Genitourinary Disorders: No - PSYCHIATRIC Hx Psychophysiologic Disorder: No Hx Substance Use: No - SURGICAL HISTORY Hx Surgeries: No - ANESTHESIA Hx Anesthesia: No Hx Anesthesia Reactions: No Hx Malignant Hyperthermia: No Meds Allergies/Adverse Reactions: Allergies Allergy/AdvReac Type Severity Reaction Status Date / Time ceftriaxone [From Rocephin] Allergy Severe RASH Verified 06/16/17 01:58 Penicillins Allergy RASH Verified 06/01/17 22:52 Physical Exam - Constitutional Appears: Well, Non-toxic, No Acute Distress - Head Exam Head Exam: ATRAUMATIC, NORMAL INSPECTION, NORMOCEPHALIC - Eye Exam Eye Exam: EOMI, Normal appearance, PERRL Pupil Exam: NORMAL ACCOMODATION, PERRL - ENT Exam ENT Exam: Mucous Membranes Moist, Normal Exam - Neck Exam Neck exam: Positive for: Normal Inspection - Respiratory Exam Respiratory Exam: Decreased Breath Sounds, Clear to Auscultation Bilateral, NORMAL BREATHING PATTERN Additional comments: decreased in bases, poor insp effort - Cardiovascular Exam Cardiovascular Exam: REGULAR RHYTHM, RRR, +S1, +S2 - GI/Abdominal Exam GI & Abdominal Exam: Normal Bowel Sounds, Soft. absent: Tenderness - Rectal Exam Rectal Exam: NORMAL INSPECTION - Extremities Exam Extremities exam: Positive for: full ROM, normal capillary refill, normal inspection, pedal pulses present - Back Exam Back exam: NORMAL INSPECTION - Neurological Exam Neurological exam: Alert, CN II-XII Intact, Normal Gait, Oriented x3, Reflexes Normal - Psychiatric Exam Psychiatric exam: Normal Affect, Normal Mood - Skin Skin Exam: Dry, Intact, Normal Color, Warm Results - Vital Signs Recent Vital Signs: Last Vital Signs Temp 98.4 F 06/16/17 04:00 Pulse 90 06/16/17 06:30 Resp 18 06/16/17 06:30 BP 121/82 06/16/17 06:30 Pulse Ox 99 06/16/17 06:30 - Labs Result Diagrams: 06/16/17 06:00 06/16/17 06:00 Labs: Laboratory Results - last 24 hr 06/15/17 06/15/17 06/15/17 16:25 18:25 18:25 WBC 23.6 H D RBC 6.07 H Hgb 15.6 D Hct 52.0 H MCV 85.7 D MCH 25.8 L MCHC 30.1 L RDW 15.5 H Plt Count 231 MPV 12.7 H Neut % (Auto) 86.7 H Lymph % (Auto) 5.8 L Roberts % (Auto) 6.9 Eos % (Auto) 0.1 Baso % (Auto) 0.5 Neut # 20.4 H Lymph # 1.4 Roberts # 1.6 H Eos # 0.0 Baso # 0.1 Neutrophils % (Manual) 82 H Band Neutrophils % 3 H Lymphocytes % (Manual) 7 L Monocytes % (Manual) 8 Toxic Granulation Present Platelet Estimate Normal Large Platelets Present Hypochromasia (manual) Slight PT 11.1 INR 1.0 APTT 26.3 pCO2 23 L pO2 96 HCO3 11.8 L ABG pH 7.21 L ABG Total CO2 9.9 L ABG O2 Saturation 99.2 H ABG Base Excess -16.8 L Zoran Test Yes ABG Potassium 4.5 VBG pH VBG pCO2 VBG HCO3 VBG Total CO2 VBG O2 Sat (Calc) VBG Base Excess VBG Potassium A-a O2 Difference 25.0 Sodium 144.0 Chloride 101.0 Glucose > 750 H* D Lactate 3.2 H FiO2 21.0 Crit Value Called To Julien recio md Crit Value Called By 302 Crit Value Read Back Y Blood Gas Notified Time 1631 Potassium Carbon Dioxide Anion Gap BUN Creatinine Est GFR ( Amer) Est GFR (Non-Af Amer) POC Glucose (mg/dL) Random Glucose Calcium Phosphorus Magnesium Total Bilirubin AST ALT Alkaline Phosphatase Total Creatine Kinase Troponin I Total Protein Albumin Globulin Albumin/Globulin Ratio Arterial Blood Potassium 4.5 Venous Blood Potassium Urine Color Urine Clarity Urine pH Ur Specific [place] Urine Protein Urine Glucose (UA) Urine Ketones Urine Blood Urine Nitrate Urine Bilirubin Urine Urobilinogen Ur Leukocyte Esterase Urine RBC (Auto) Urine Microscopic WBC Urine Bacteria Hyaline Casts Urine Opiates Screen Urine Methadone Screen Ur Barbiturates Screen Ur Phencyclidine Scrn Ur Amphetamines Screen U Benzodiazepines Scrn U Oth Cocaine Metabols U Cannabinoids Screen Alcohol, Quantitative 06/15/17 06/15/17 06/15/17 18:30 18:34 19:20 WBC RBC Hgb Hct MCV MCH MCHC RDW Plt Count MPV Neut % (Auto) Lymph % (Auto) Roberts % (Auto) Eos % (Auto) Baso % (Auto) Neut # Lymph # Roberts # Eos # Baso # Neutrophils % (Manual) Band Neutrophils % Lymphocytes % (Manual) Monocytes % (Manual) Toxic Granulation Platelet Estimate Large Platelets Hypochromasia (manual) PT INR APTT pCO2 pO2 HCO3 ABG pH ABG Total CO2 ABG O2 Saturation ABG Base Excess Zoran Test ABG Potassium VBG pH VBG pCO2 VBG HCO3 VBG Total CO2 VBG O2 Sat (Calc) VBG Base Excess VBG Potassium A-a O2 Difference Sodium 147 Chloride 107 Glucose Lactate FiO2 Crit Value Called To Crit Value Called By Crit Value Read Back Blood Gas Notified Time Potassium 4.8 Carbon Dioxide 13 L Anion Gap 32 H BUN 75 H Creatinine 1.8 H Est GFR ( Amer) 46 Est GFR (Non-Af Amer) 38 POC Glucose (mg/dL) Random Glucose 717 H* D Calcium 7.7 L Phosphorus Magnesium Total Bilirubin 0.7 AST 26 ALT 23 Alkaline Phosphatase 97 Total Creatine Kinase 63 Troponin I 0.0600 Total Protein 6.2 L Albumin 3.2 L Globulin 3.0 Albumin/Globulin Ratio 1.1 Arterial Blood Potassium Venous Blood Potassium Urine Color Yellow Urine Clarity Clear Urine pH 5.0 Ur Specific [place] 1.028 Urine Protein Negative Urine Glucose (UA) >=500 Urine Ketones 20 Urine Blood Negative Urine Nitrate Negative Urine Bilirubin Negative Urine Urobilinogen 0.2-1.0 Ur Leukocyte Esterase Neg Urine RBC (Auto) 3 Urine Microscopic WBC 2 Urine Bacteria Rare Hyaline Casts 0-2 Urine Opiates Screen Negative Urine Methadone Screen Negative Ur Barbiturates Screen Negative Ur Phencyclidine Scrn Negative Ur Amphetamines Screen Negative U Benzodiazepines Scrn Negative U Oth Cocaine Metabols Negative U Cannabinoids Screen Negative Alcohol, Quantitative < 10 06/15/17 06/15/17 06/15/17 20:02 20:21 21:19 WBC RBC Hgb Hct MCV MCH MCHC RDW Plt Count MPV Neut % (Auto) Lymph % (Auto) Roberts % (Auto) Eos % (Auto) Baso % (Auto) Neut # Lymph # Roberts # Eos # Baso # Neutrophils % (Manual) Band Neutrophils % Lymphocytes % (Manual) Monocytes % (Manual) Toxic Granulation Platelet Estimate Large Platelets Hypochromasia (manual) PT INR APTT pCO2 pO2 27 L HCO3 ABG pH ABG Total CO2 ABG O2 Saturation ABG Base Excess Zoran Test ABG Potassium VBG pH 7.10 L* VBG pCO2 47 VBG HCO3 11.4 VBG Total CO2 16.0 L VBG O2 Sat (Calc) 49.1 VBG Base Excess -14.9 L VBG Potassium 7.3 H* A-a O2 Difference Sodium 146.0 Chloride 100.0 Glucose > 750 H* Lactate 6.4 H* FiO2 21.0 Crit Value Called To Anika trujillo md Crit Value Called By [facility] Crit Value Read Back Y Blood Gas Notified Time 2029 Potassium Carbon Dioxide Anion Gap BUN Creatinine Est GFR ( Amer) Est GFR (Non-Af Amer) POC Glucose (mg/dL) > 500 H* > 500 H* Random Glucose Calcium Phosphorus Magnesium Total Bilirubin AST ALT Alkaline Phosphatase Total Creatine Kinase Troponin I Total Protein Albumin Globulin Albumin/Globulin Ratio Arterial Blood Potassium Venous Blood Potassium 7.3 H* Urine Color Urine Clarity Urine pH Ur Specific [place] Urine Protein Urine Glucose (UA) Urine Ketones Urine Blood Urine Nitrate Urine Bilirubin Urine Urobilinogen Ur Leukocyte Esterase Urine RBC (Auto) Urine Microscopic WBC Urine Bacteria Hyaline Casts Urine Opiates Screen Urine Methadone Screen Ur Barbiturates Screen Ur Phencyclidine Scrn Ur Amphetamines Screen U Benzodiazepines Scrn U Oth Cocaine Metabols U Cannabinoids Screen Alcohol, Quantitative 06/15/17 06/15/17 06/15/17 21:25 22:29 23:37 WBC RBC Hgb Hct MCV MCH MCHC RDW Plt Count MPV Neut % (Auto) Lymph % (Auto) Roberts % (Auto) Eos % (Auto) Baso % (Auto) Neut # Lymph # Roberts # Eos # Baso # Neutrophils % (Manual) Band Neutrophils % Lymphocytes % (Manual) Monocytes % (Manual) Toxic Granulation Platelet Estimate Large Platelets Hypochromasia (manual) PT INR APTT pCO2 pO2 HCO3 ABG pH ABG Total CO2 ABG O2 Saturation ABG Base Excess Zoran Test ABG Potassium VBG pH VBG pCO2 VBG HCO3 VBG Total CO2 VBG O2 Sat (Calc) VBG Base Excess VBG Potassium A-a O2 Difference Sodium 150 H Chloride 111 H Glucose Lactate FiO2 Crit Value Called To Crit Value Called By Crit Value Read Back Blood Gas Notified Time Potassium 4.5 Carbon Dioxide 12 L Anion Gap 32 H BUN 75 H Creatinine 1.8 H Est GFR ( Amer) 46 Est GFR (Non-Af Amer) 38 POC Glucose (mg/dL) 412 H* 368 H Random Glucose 614 H* Calcium 7.9 L Phosphorus Magnesium Total Bilirubin AST ALT Alkaline Phosphatase Total Creatine Kinase Troponin I Total Protein Albumin Globulin Albumin/Globulin Ratio Arterial Blood Potassium Venous Blood Potassium Urine Color Urine Clarity Urine pH Ur Specific [place] Urine Protein Urine Glucose (UA) Urine Ketones Urine Blood Urine Nitrate Urine Bilirubin Urine Urobilinogen Ur Leukocyte Esterase Urine RBC (Auto) Urine Microscopic WBC Urine Bacteria Hyaline Casts Urine Opiates Screen Urine Methadone Screen Ur Barbiturates Screen Ur Phencyclidine Scrn Ur Amphetamines Screen U Benzodiazepines Scrn U Oth Cocaine Metabols U Cannabinoids Screen Alcohol, Quantitative 06/16/17 06/16/17 06/16/17 00:49 01:31 01:50 WBC RBC Hgb Hct MCV MCH MCHC RDW Plt Count MPV Neut % (Auto) Lymph % (Auto) Roberts % (Auto) Eos % (Auto) Baso % (Auto) Neut # Lymph # Roberts # Eos # Baso # Neutrophils % (Manual) Band Neutrophils % Lymphocytes % (Manual) Monocytes % (Manual) Toxic Granulation Platelet Estimate Large Platelets Hypochromasia (manual) PT INR APTT pCO2 pO2 HCO3 ABG pH ABG Total CO2 ABG O2 Saturation ABG Base Excess Zoran Test ABG Potassium VBG pH VBG pCO2 VBG HCO3 VBG Total CO2 VBG O2 Sat (Calc) VBG Base Excess VBG Potassium A-a O2 Difference Sodium 157 H Chloride 118 H Glucose Lactate FiO2 Crit Value Called To Crit Value Called By Crit Value Read Back Blood Gas Notified Time Potassium 4.4 Carbon Dioxide 21 L Anion Gap 22 H BUN 66 H Creatinine 1.4 Est GFR ( Amer) > 60 Est GFR (Non-Af Amer) 51 POC Glucose (mg/dL) 335 H 358 H Random Glucose 329 H Calcium 8.0 L Phosphorus 2.6 Magnesium 2.4 H Total Bilirubin AST ALT Alkaline Phosphatase Total Creatine Kinase Troponin I Total Protein Albumin Globulin Albumin/Globulin Ratio Arterial Blood Potassium Venous Blood Potassium Urine Color Urine Clarity Urine pH Ur Specific [place] Urine Protein Urine Glucose (UA) Urine Ketones Urine Blood Urine Nitrate Urine Bilirubin Urine Urobilinogen Ur Leukocyte Esterase Urine RBC (Auto) Urine Microscopic WBC Urine Bacteria Hyaline Casts Urine Opiates Screen Urine Methadone Screen Ur Barbiturates Screen Ur Phencyclidine Scrn Ur Amphetamines Screen U Benzodiazepines Scrn U Oth Cocaine Metabols U Cannabinoids Screen Alcohol, Quantitative 06/16/17 06/16/17 06/16/17 02:29 03:31 04:38 WBC RBC Hgb Hct MCV MCH MCHC RDW Plt Count MPV Neut % (Auto) Lymph % (Auto) Roberts % (Auto) Eos % (Auto) Baso % (Auto) Neut # Lymph # Roberts # Eos # Baso # Neutrophils % (Manual) Band Neutrophils % Lymphocytes % (Manual) Monocytes % (Manual) Toxic Granulation Platelet Estimate Large Platelets Hypochromasia (manual) PT INR APTT pCO2 pO2 HCO3 ABG pH ABG Total CO2 ABG O2 Saturation ABG Base Excess Zoran Test ABG Potassium VBG pH VBG pCO2 VBG HCO3 VBG Total CO2 VBG O2 Sat (Calc) VBG Base Excess VBG Potassium A-a O2 Difference Sodium Chloride Glucose Lactate FiO2 Crit Value Called To Crit Value Called By Crit Value Read Back Blood Gas Notified Time Potassium Carbon Dioxide Anion Gap BUN Creatinine Est GFR ( Amer) Est GFR (Non-Af Amer) POC Glucose (mg/dL) 363 H 277 H 265 H Random Glucose Calcium Phosphorus Magnesium Total Bilirubin AST ALT Alkaline Phosphatase Total Creatine Kinase Troponin I Total Protein Albumin Globulin Albumin/Globulin Ratio Arterial Blood Potassium Venous Blood Potassium Urine Color Urine Clarity Urine pH Ur Specific [place] Urine Protein Urine Glucose (UA) Urine Ketones Urine Blood Urine Nitrate Urine Bilirubin Urine Urobilinogen Ur Leukocyte Esterase Urine RBC (Auto) Urine Microscopic WBC Urine Bacteria Hyaline Casts Urine Opiates Screen Urine Methadone Screen Ur Barbiturates Screen Ur Phencyclidine Scrn Ur Amphetamines Screen U Benzodiazepines Scrn U Oth Cocaine Metabols U Cannabinoids Screen Alcohol, Quantitative 06/16/17 06/16/17 05:29 06:28 WBC RBC Hgb Hct MCV MCH MCHC RDW Plt Count MPV Neut % (Auto) Lymph % (Auto) [place] % (Auto) Eos % (Auto) Baso % (Auto) Neut # Lymph # [place] # Eos # Baso # Neutrophils % (Manual) Band Neutrophils % Lymphocytes % (Manual) Monocytes % (Manual) Toxic Granulation Platelet Estimate Large Platelets Hypochromasia (manual) PT INR APTT pCO2 pO2 HCO3 ABG pH ABG Total CO2 ABG O2 Saturation ABG Base Excess Zoran Test ABG Potassium VBG pH VBG pCO2 VBG HCO3 VBG Total CO2 VBG O2 Sat (Calc) VBG Base Excess VBG Potassium A-a O2 Difference Sodium Chloride Glucose Lactate FiO2 Crit Value Called To Crit Value Called By Crit Value Read Back Blood Gas Notified Time Potassium Carbon Dioxide Anion Gap BUN Creatinine Est GFR ( Amer) Est GFR (Non-Af Amer) POC Glucose (mg/dL) 203 H 115 H Random Glucose Calcium Phosphorus Magnesium Total Bilirubin AST ALT Alkaline Phosphatase Total Creatine Kinase Troponin I Total Protein Albumin Globulin Albumin/Globulin Ratio Arterial Blood Potassium Venous Blood Potassium Urine Color Urine Clarity Urine pH Ur Specific [place] Urine Protein Urine Glucose (UA) Urine Ketones Urine Blood Urine Nitrate Urine Bilirubin Urine Urobilinogen Ur Leukocyte Esterase Urine RBC (Auto) Urine Microscopic WBC Urine Bacteria Hyaline Casts Urine Opiates Screen Urine Methadone Screen Ur Barbiturates Screen Ur Phencyclidine Scrn Ur Amphetamines Screen U Benzodiazepines Scrn U Oth Cocaine Metabols U Cannabinoids Screen Alcohol, Quantitative Assessment & Plan - Assessment and Plan (Free Text) Assessment: 1-dka/uncontrolled dm2-likelyr t/ steroids from asthma exacerbation, insulin gtt , endo consult, ivf, icu care, fsbg 2-pneumonia causing sepsis-monitor bw, c/s, rocephin d/c r/t rash, zithromax, levaquin 3-dvt ppx-scd and ae hose, lovenox Decision To Admit - Pt Status Changed To: Hospital Disposition Of: Inpatient - Admit Certification Admit to Inpatient:: After my assessment, the patient will require hospitalization for at least two midnights. This is because of the severity of symptoms shown, intensity of services needed, and/or the medical risk in this patient being treated as an outpatient. - . Bed Request Type: Intensive Care Admitting Physician: Kalia Doan
[2017-06-16 07:39] LABS: BLOOD UREA NITROGEN 55 mg/dl (9-20); CALCIUM 7.5 mg/dL (8.4-10.2); CARBON DIOXIDE 25 mmol/L (22-30); CHLORIDE 123 mmol/L (98-107); GFR AFRICAN-AMERICAN > 60; GLUCOSE,RANDOM 98 mg/dL (75-110); POTASSIUM 3.1 MMOL/L (3.6-5.0); SODIUM 158 mmol/l (132-148)
--- NOTE | 2017-06-16 08:12 | CP.PCM.CON ---
History of Present Illness - History of Present Illness History of Present Illness: Patient received ativan in ER for agitation and he is sleeping and non-verbal, hx is obtained from review of the chart and discussed with physician who managed him overnight. He was admitted last night for confusion, agitation and was non-compliance to his diabetic meds and diet. He is a 66 old male with hx of HTN, Asthma, Subdural Hematoma and DM II who was brought to the ED because of elevated blood Glucose. He is noncompliant with checking his blood glucose and in taking his Metformin. He had been feeling weak and according to the family, he does not seem himself and has been agitated and confused. Prior to the sedation, the patient denied fever, vomiting, diarrhea, chest and abdominal pain, SOB, and dysuria. He referred that he had been coughing for some time. Was admitted overnight has been on Insulin infusion and received IV NS boluses. This morning his BS was 109 and his insulin infusion was DCed according to protocol . New blood work is pending to assess latest AG. Review of Systems - Constitutional Constitutional: As Per HPI - Cardiovascular Cardiovascular: As Per HPI Past Patient History - Infectious Disease Hx of Infectious Diseases: None - Past Medical History & Family History Past Medical History?: Yes - Past Social History Smoking Status: Never Smoked - CARDIAC Hx Hypercholesterolemia: Yes Hx Hypertension: Yes - PULMONARY Hx Asthma: Yes Hx Pneumonia: Yes - NEUROLOGICAL Hx Neurological Disorder: No Other/Comment: Right frontal Subaracnoid hemorrhage - HEENT Hx HEENT Problems: No - RENAL Hx Chronic Kidney Disease: No - ENDOCRINE/METABOLIC Hx Endocrine Disorders: Yes Hx Diabetes Mellitus Type 2: Yes - HEMATOLOGICAL/ONCOLOGICAL Hx Blood Disorders: No Hx AIDS: No Hx Human Immunodeficiency Virus (HIV): No - INTEGUMENTARY Hx Dermatological Problems: No - MUSCULOSKELETAL/RHEUMATOLOGICAL Hx Musculoskeletal Disorders: Yes Hx Falls: Yes (SYNCOPAL EPISODE TODAY) Other/Comment: Last year fell at home head injury/sutures - GASTROINTESTINAL Hx Gastrointestinal Disorders: No - GENITOURINARY/GYNECOLOGICAL Hx Genitourinary Disorders: No - PSYCHIATRIC Hx Psychophysiologic Disorder: No Hx Substance Use: No - SURGICAL HISTORY Hx Surgeries: No - ANESTHESIA Hx Anesthesia: No Hx Anesthesia Reactions: No Hx Malignant Hyperthermia: No Meds Allergies/Adverse Reactions: Allergies Allergy/AdvReac Type Severity Reaction Status Date / Time ceftriaxone [From Rocephin] Allergy Severe RASH Verified 06/16/17 01:58 Penicillins Allergy RASH Verified 06/01/17 22:52 - Medications Medications: Current Medications Albuterol Sulfate (Albuterol 0.083% Inhal Dary (2.5 Mg/3 Ml) Ud) 2.5 mg IH Q6H PRN PRN Reason: Shortness of Breath Atenolol (Tenormin) 50 mg PO DAILY [facility] Chlorthalidone (Hygroton) 25 mg PO DAILY [facility] Dextrose (Dextrose 50% Inj) 0 ml IV STAT PRN; Protocol PRN Reason: Hyglycemia Protocol Dextrose (Glutose 15) 0 gm PO ONCE PRN; Protocol PRN Reason: Hypoglycemia Protocol Glucagon (Glucagen Diagnostic Kit) 0 mg IM STAT PRN; Protocol PRN Reason: Hypoglycemia Protocol Insulin Human Regular 100 (units/ Sodium Chloride) 101 mls @ 5.05 mls/hr IV .Q20H [facility]; 5 UNITS/HR PRN Reason: Protocol Last Titration: 06/16/17 06:30 Dose: 0 units/hr, 0 mls/hr Levofloxacin/Dextrose (Levaquin 750mg) 750 mg in 150 mls @ 100 mls/hr IVPB DAILY [facility] Sodium Chloride (Sodium Chloride 0.45%) 1,000 mls @ 200 mls/hr IV .Q5H [facility] Stop: 06/17/17 04:05 Last Admin: 06/16/17 05:06 Dose: 200 mls/hr Pantoprazole Sodium (Protonix Inj) 40 mg IVP DAILY [facility] Pravastatin Sodium (Pravachol) 20 mg PO DAILY [facility] Fluticasone/Salmeterol (Advair Diskus 250/50) 1 puff IH Q12H [facility] Last Admin: 06/15/17 21:13 Dose: Not Given Physical Exam - Constitutional Appears: Other - Head Exam Head Exam: ATRAUMATIC - Eye Exam Pupil Exam: NORMAL ACCOMODATION - Neck Exam Neck exam: Positive for: Full Rom - Respiratory Exam Respiratory Exam: NORMAL BREATHING PATTERN - Cardiovascular Exam Cardiovascular Exam: REGULAR RHYTHM - GI/Abdominal Exam GI & Abdominal Exam: Soft - Rectal Exam Rectal Exam: Deferred Results - Vital Signs Recent Vital Signs: Last Vital Signs Temp 98.4 F 06/16/17 04:00 Pulse 90 06/16/17 06:30 Resp 18 06/16/17 06:30 BP 121/82 06/16/17 06:30 Pulse Ox 99 06/16/17 06:30 - Labs Result Diagrams: 06/16/17 06:00 06/16/17 06:00 Labs: Laboratory Results - last 24 hr 06/15/17 06/15/17 06/15/17 16:25 18:25 18:25 WBC 23.6 H D RBC 6.07 H Hgb 15.6 D Hct 52.0 H MCV 85.7 D MCH 25.8 L MCHC 30.1 L RDW 15.5 H Plt Count 231 MPV 12.7 H Neut % (Auto) 86.7 H Lymph % (Auto) 5.8 L [place] % (Auto) 6.9 Eos % (Auto) 0.1 Baso % (Auto) 0.5 Neut # 20.4 H Lymph # 1.4 [place] # 1.6 H Eos # 0.0 Baso # 0.1 Neutrophils % (Manual) 82 H Band Neutrophils % 3 H Lymphocytes % (Manual) 7 L Monocytes % (Manual) 8 Toxic Granulation Present Platelet Estimate Normal Large Platelets Present Hypochromasia (manual) Slight PT 11.1 INR 1.0 APTT 26.3 pCO2 23 L pO2 96 HCO3 11.8 L ABG pH 7.21 L ABG Total CO2 9.9 L ABG O2 Saturation 99.2 H ABG Base Excess -16.8 L Zoran Test Yes ABG Potassium 4.5 VBG pH VBG pCO2 VBG HCO3 VBG Total CO2 VBG O2 Sat (Calc) VBG Base Excess VBG Potassium A-a O2 Difference 25.0 Sodium 144.0 Chloride 101.0 Glucose > 750 H* D Lactate 3.2 H FiO2 21.0 Crit Value Called To Julien recio md Crit Value Called By 302 Crit Value Read Back Y Blood Gas Notified Time 1631 Potassium Carbon Dioxide Anion Gap BUN Creatinine Est GFR ( Amer) Est GFR (Non-Af Amer) POC Glucose (mg/dL) Random Glucose Lactic Acid Calcium Phosphorus Magnesium Total Bilirubin AST ALT Alkaline Phosphatase Total Creatine Kinase Troponin I Total Protein Albumin Globulin Albumin/Globulin Ratio Arterial Blood Potassium 4.5 Venous Blood Potassium Urine Color Urine Clarity Urine pH Ur Specific [place] Urine Protein Urine Glucose (UA) Urine Ketones Urine Blood Urine Nitrate Urine Bilirubin Urine Urobilinogen Ur Leukocyte Esterase Urine RBC (Auto) Urine Microscopic WBC Urine Bacteria Hyaline Casts Urine Opiates Screen Urine Methadone Screen Ur Barbiturates Screen Ur Phencyclidine Scrn Ur Amphetamines Screen U Benzodiazepines Scrn U Oth Cocaine Metabols U Cannabinoids Screen Alcohol, Quantitative 06/15/17 06/15/17 06/15/17 18:30 18:34 19:20 WBC RBC Hgb Hct MCV MCH MCHC RDW Plt Count MPV Neut % (Auto) Lymph % (Auto) [place] % (Auto) Eos % (Auto) Baso % (Auto) Neut # Lymph # [place] # Eos # Baso # Neutrophils % (Manual) Band Neutrophils % Lymphocytes % (Manual) Monocytes % (Manual) Toxic Granulation Platelet Estimate Large Platelets Hypochromasia (manual) PT INR APTT pCO2 pO2 HCO3 ABG pH ABG Total CO2 ABG O2 Saturation ABG Base Excess Zoran Test ABG Potassium VBG pH VBG pCO2 VBG HCO3 VBG Total CO2 VBG O2 Sat (Calc) VBG Base Excess VBG Potassium A-a O2 Difference Sodium 147 Chloride 107 Glucose Lactate FiO2 Crit Value Called To Crit Value Called By Crit Value Read Back Blood Gas Notified Time Potassium 4.8 Carbon Dioxide 13 L Anion Gap 32 H BUN 75 H Creatinine 1.8 H Est GFR ( Amer) 46 Est GFR (Non-Af Amer) 38 POC Glucose (mg/dL) Random Glucose 717 H* D Lactic Acid Calcium 7.7 L Phosphorus Magnesium Total Bilirubin 0.7 AST 26 ALT 23 Alkaline Phosphatase 97 Total Creatine Kinase 63 Troponin I 0.0600 Total Protein 6.2 L Albumin 3.2 L Globulin 3.0 Albumin/Globulin Ratio 1.1 Arterial Blood Potassium Venous Blood Potassium Urine Color Yellow Urine Clarity Clear Urine pH 5.0 Ur Specific [place] 1.028 Urine Protein Negative Urine Glucose (UA) >=500 Urine Ketones 20 Urine Blood Negative Urine Nitrate Negative Urine Bilirubin Negative Urine Urobilinogen 0.2-1.0 Ur Leukocyte Esterase Neg Urine RBC (Auto) 3 Urine Microscopic WBC 2 Urine Bacteria Rare Hyaline Casts 0-2 Urine Opiates Screen Negative Urine Methadone Screen Negative Ur Barbiturates Screen Negative Ur Phencyclidine Scrn Negative Ur Amphetamines Screen Negative U Benzodiazepines Scrn Negative U Oth Cocaine Metabols Negative U Cannabinoids Screen Negative Alcohol, Quantitative < 10 06/15/17 06/15/17 06/15/17 20:02 20:21 21:19 WBC RBC Hgb Hct MCV MCH MCHC RDW Plt Count MPV Neut % (Auto) Lymph % (Auto) [place] % (Auto) Eos % (Auto) Baso % (Auto) Neut # Lymph # [place] # Eos # Baso # Neutrophils % (Manual) Band Neutrophils % Lymphocytes % (Manual) Monocytes % (Manual) Toxic Granulation Platelet Estimate Large Platelets Hypochromasia (manual) PT INR APTT pCO2 pO2 27 L HCO3 ABG pH ABG Total CO2 ABG O2 Saturation ABG Base Excess Zoran Test ABG Potassium VBG pH 7.10 L* VBG pCO2 47 VBG HCO3 11.4 VBG Total CO2 16.0 L VBG O2 Sat (Calc) 49.1 VBG Base Excess -14.9 L VBG Potassium 7.3 H* A-a O2 Difference Sodium 146.0 Chloride 100.0 Glucose > 750 H* Lactate 6.4 H* FiO2 21.0 Crit Value Called To Anika trujillo md Crit Value Called By [facility] Crit Value Read Back Y Blood Gas Notified Time 2029 Potassium Carbon Dioxide Anion Gap BUN Creatinine Est GFR ( Amer) Est GFR (Non-Af Amer) POC Glucose (mg/dL) > 500 H* > 500 H* Random Glucose Lactic Acid Calcium Phosphorus Magnesium Total Bilirubin AST ALT Alkaline Phosphatase Total Creatine Kinase Troponin I Total Protein Albumin Globulin Albumin/Globulin Ratio Arterial Blood Potassium Venous Blood Potassium 7.3 H* Urine Color Urine Clarity Urine pH Ur Specific [place] Urine Protein Urine Glucose (UA) Urine Ketones Urine Blood Urine Nitrate Urine Bilirubin Urine Urobilinogen Ur Leukocyte Esterase Urine RBC (Auto) Urine Microscopic WBC Urine Bacteria Hyaline Casts Urine Opiates Screen Urine Methadone Screen Ur Barbiturates Screen Ur Phencyclidine Scrn Ur Amphetamines Screen U Benzodiazepines Scrn U Oth Cocaine Metabols U Cannabinoids Screen Alcohol, Quantitative 06/15/17 06/15/17 06/15/17 21:25 22:29 23:37 WBC RBC Hgb Hct MCV MCH MCHC RDW Plt Count MPV Neut % (Auto) Lymph % (Auto) [place] % (Auto) Eos % (Auto) Baso % (Auto) Neut # Lymph # [place] # Eos # Baso # Neutrophils % (Manual) Band Neutrophils % Lymphocytes % (Manual) Monocytes % (Manual) Toxic Granulation Platelet Estimate Large Platelets Hypochromasia (manual) PT INR APTT pCO2 pO2 HCO3 ABG pH ABG Total CO2 ABG O2 Saturation ABG Base Excess Zoran Test ABG Potassium VBG pH VBG pCO2 VBG HCO3 VBG Total CO2 VBG O2 Sat (Calc) VBG Base Excess VBG Potassium A-a O2 Difference Sodium 150 H Chloride 111 H Glucose Lactate FiO2 Crit Value Called To Crit Value Called By Crit Value Read Back Blood Gas Notified Time Potassium 4.5 Carbon Dioxide 12 L Anion Gap 32 H BUN 75 H Creatinine 1.8 H Est GFR ( Amer) 46 Est GFR (Non-Af Amer) 38 POC Glucose (mg/dL) 412 H* 368 H Random Glucose 614 H* Lactic Acid Calcium 7.9 L Phosphorus Magnesium Total Bilirubin AST ALT Alkaline Phosphatase Total Creatine Kinase Troponin I Total Protein Albumin Globulin Albumin/Globulin Ratio Arterial Blood Potassium Venous Blood Potassium Urine Color Urine Clarity Urine pH Ur Specific [place] Urine Protein Urine Glucose (UA) Urine Ketones Urine Blood Urine Nitrate Urine Bilirubin Urine Urobilinogen Ur Leukocyte Esterase Urine RBC (Auto) Urine Microscopic WBC Urine Bacteria Hyaline Casts Urine Opiates Screen Urine Methadone Screen Ur Barbiturates Screen Ur Phencyclidine Scrn Ur Amphetamines Screen U Benzodiazepines Scrn U Oth Cocaine Metabols U Cannabinoids Screen Alcohol, Quantitative 06/16/17 06/16/17 06/16/17 00:49 01:31 01:50 WBC RBC Hgb Hct MCV MCH MCHC RDW Plt Count MPV Neut % (Auto) Lymph % (Auto) [place] % (Auto) Eos % (Auto) Baso % (Auto) Neut # Lymph # [place] # Eos # Baso # Neutrophils % (Manual) Band Neutrophils % Lymphocytes % (Manual) Monocytes % (Manual) Toxic Granulation Platelet Estimate Large Platelets Hypochromasia (manual) PT INR APTT pCO2 pO2 HCO3 ABG pH ABG Total CO2 ABG O2 Saturation ABG Base Excess Zoran Test ABG Potassium VBG pH VBG pCO2 VBG HCO3 VBG Total CO2 VBG O2 Sat (Calc) VBG Base Excess VBG Potassium A-a O2 Difference Sodium 157 H Chloride 118 H Glucose Lactate FiO2 Crit Value Called To Crit Value Called By Crit Value Read Back Blood Gas Notified Time Potassium 4.4 Carbon Dioxide 21 L Anion Gap 22 H BUN 66 H Creatinine 1.4 Est GFR ( Amer) > 60 Est GFR (Non-Af Amer) 51 POC Glucose (mg/dL) 335 H 358 H Random Glucose 329 H Lactic Acid Calcium 8.0 L Phosphorus 2.6 Magnesium 2.4 H Total Bilirubin AST ALT Alkaline Phosphatase Total Creatine Kinase Troponin I Total Protein Albumin Globulin Albumin/Globulin Ratio Arterial Blood Potassium Venous Blood Potassium Urine Color Urine Clarity Urine pH Ur Specific [place] Urine Protein Urine Glucose (UA) Urine Ketones Urine Blood Urine Nitrate Urine Bilirubin Urine Urobilinogen Ur Leukocyte Esterase Urine RBC (Auto) Urine Microscopic WBC Urine Bacteria Hyaline Casts Urine Opiates Screen Urine Methadone Screen Ur Barbiturates Screen Ur Phencyclidine Scrn Ur Amphetamines Screen U Benzodiazepines Scrn U Oth Cocaine Metabols U Cannabinoids Screen Alcohol, Quantitative 06/16/17 06/16/17 06/16/17 02:29 03:31 04:38 WBC RBC Hgb Hct MCV MCH MCHC RDW Plt Count MPV Neut % (Auto) Lymph % (Auto) [place] % (Auto) Eos % (Auto) Baso % (Auto) Neut # Lymph # [place] # Eos # Baso # Neutrophils % (Manual) Band Neutrophils % Lymphocytes % (Manual) Monocytes % (Manual) Toxic Granulation Platelet Estimate Large Platelets Hypochromasia (manual) PT INR APTT pCO2 pO2 HCO3 ABG pH ABG Total CO2 ABG O2 Saturation ABG Base Excess Zoran Test ABG Potassium VBG pH VBG pCO2 VBG HCO3 VBG Total CO2 VBG O2 Sat (Calc) VBG Base Excess VBG Potassium A-a O2 Difference Sodium Chloride Glucose Lactate FiO2 Crit Value Called To Crit Value Called By Crit Value Read Back Blood Gas Notified Time Potassium Carbon Dioxide Anion Gap BUN Creatinine Est GFR ( Amer) Est GFR (Non-Af Amer) POC Glucose (mg/dL) 363 H 277 H 265 H Random Glucose Lactic Acid Calcium Phosphorus Magnesium Total Bilirubin AST ALT Alkaline Phosphatase Total Creatine Kinase Troponin I Total Protein Albumin Globulin Albumin/Globulin Ratio Arterial Blood Potassium Venous Blood Potassium Urine Color Urine Clarity Urine pH Ur Specific [place] Urine Protein Urine Glucose (UA) Urine Ketones Urine Blood Urine Nitrate Urine Bilirubin Urine Urobilinogen Ur Leukocyte Esterase Urine RBC (Auto) Urine Microscopic WBC Urine Bacteria Hyaline Casts Urine Opiates Screen Urine Methadone Screen Ur Barbiturates Screen Ur Phencyclidine Scrn Ur Amphetamines Screen U Benzodiazepines Scrn U Oth Cocaine Metabols U Cannabinoids Screen Alcohol, Quantitative 06/16/17 06/16/17 06/16/17 05:29 06:00 06:00 WBC 18.7 H RBC 5.57 Hgb 14.8 Hct 45.1 MCV 80.9 D MCH 26.5 L MCHC 32.8 L RDW 14.1 Plt Count 173 MPV 11.1 Neut % (Auto) 82.7 H Lymph % (Auto) 10.6 L [place] % (Auto) 6.5 Eos % (Auto) 0.1 Baso % (Auto) 0.1 Neut # 15.5 H Lymph # 2.0 [place] # 1.2 H Eos # 0.0 Baso # 0.0 Neutrophils % (Manual) Band Neutrophils % Lymphocytes % (Manual) Monocytes % (Manual) Toxic Granulation Platelet Estimate Large Platelets Hypochromasia (manual) PT INR APTT pCO2 pO2 HCO3 ABG pH ABG Total CO2 ABG O2 Saturation ABG Base Excess Zoran Test ABG Potassium VBG pH VBG pCO2 VBG HCO3 VBG Total CO2 VBG O2 Sat (Calc) VBG Base Excess VBG Potassium A-a O2 Difference Sodium 158 H Chloride 123 H Glucose Lactate FiO2 Crit Value Called To Crit Value Called By Crit Value Read Back Blood Gas Notified Time Potassium 3.1 L Carbon Dioxide 25 Anion Gap 13 BUN 55 H Creatinine 1.1 Est GFR ( Amer) > 60 Est GFR (Non-Af Amer) > 60 POC Glucose (mg/dL) 203 H Random Glucose 98 Lactic Acid Calcium 7.5 L Phosphorus Magnesium Total Bilirubin AST ALT Alkaline Phosphatase Total Creatine Kinase Troponin I Total Protein Albumin Globulin Albumin/Globulin Ratio Arterial Blood Potassium Venous Blood Potassium Urine Color Urine Clarity Urine pH Ur Specific [place] Urine Protein Urine Glucose (UA) Urine Ketones Urine Blood Urine Nitrate Urine Bilirubin Urine Urobilinogen Ur Leukocyte Esterase Urine RBC (Auto) Urine Microscopic WBC Urine Bacteria Hyaline Casts Urine Opiates Screen Urine Methadone Screen Ur Barbiturates Screen Ur Phencyclidine Scrn Ur Amphetamines Screen U Benzodiazepines Scrn U Oth Cocaine Metabols U Cannabinoids Screen Alcohol, Quantitative 06/16/17 06/16/17 06/16/17 06:00 06:28 07:29 WBC RBC Hgb Hct MCV MCH MCHC RDW Plt Count MPV Neut % (Auto) Lymph % (Auto) [place] % (Auto) Eos % (Auto) Baso % (Auto) Neut # Lymph # [place] # Eos # Baso # Neutrophils % (Manual) Band Neutrophils % Lymphocytes % (Manual) Monocytes % (Manual) Toxic Granulation Platelet Estimate Large Platelets Hypochromasia (manual) PT INR APTT pCO2 pO2 HCO3 ABG pH ABG Total CO2 ABG O2 Saturation ABG Base Excess [place] Test ABG Potassium VBG pH VBG pCO2 VBG HCO3 VBG Total CO2 VBG O2 Sat (Calc) VBG Base Excess VBG Potassium A-a O2 Difference Sodium Chloride Glucose Lactate FiO2 Crit Value Called To Crit Value Called By Crit Value Read Back Blood Gas Notified Time Potassium Carbon Dioxide Anion Gap BUN Creatinine Est GFR ( Amer) Est GFR (Non-Af Amer) POC Glucose (mg/dL) 115 H 107 Random Glucose Lactic Acid 2.0 Calcium Phosphorus Magnesium Total Bilirubin AST ALT Alkaline Phosphatase Total Creatine Kinase Troponin I Total Protein Albumin Globulin Albumin/Globulin Ratio Arterial Blood Potassium Venous Blood Potassium Urine Color Urine Clarity Urine pH Ur Specific [place] Urine Protein Urine Glucose (UA) Urine Ketones Urine Blood Urine Nitrate Urine Bilirubin Urine Urobilinogen Ur Leukocyte Esterase Urine RBC (Auto) Urine Microscopic WBC Urine Bacteria Hyaline Casts Urine Opiates Screen Urine Methadone Screen Ur Barbiturates Screen Ur Phencyclidine Scrn Ur Amphetamines Screen U Benzodiazepines Scrn U Oth Cocaine Metabols U Cannabinoids Screen Alcohol, Quantitative Assessment & Plan - Assessment and Plan (Free Text) Assessment: DKA AMS: due to hyperglycemia HTN h/o ADH DIANNA: pre-renal Plan: Hold insulin State BMP: if still had anion gap, will start D5w with insulin infusion and if gap had closed, will monitor BP and will start s/q insulin when indicated Other meds , reviewed, will continue Endocrinology consult K replacement ordered, was low 3.1
[2017-06-16] MEDS: levoFLOXacin 750 mg in D5W 750 MG/150 ML BAG IVPB SCH (08:19)
[2017-06-16] MEDS ORDERED: levoFLOXacin 750 mg in D5W 150 ML BAG IVPB SCH (09:00)
[2017-06-16] MEDS ORDERED: Patient's Own Med (Atenolol/Chlorthalidone [Atenolol-Chlorthalidone 50-25] 1 TAB) PO SCH (09:00)
[2017-06-16] MEDS: Enoxaparin 40 mg Syringe SC SCH (09:09)
[2017-06-16] MEDS: Potassium CL 10mEq/100ml 100 ML IVPB SCH ×4 (09:09→12:24)
[2017-06-16 09:32] LABS: BLOOD UREA NITROGEN 50 mg/dl (9-20); CALCIUM 7.1 mg/dL (8.4-10.2); CARBON DIOXIDE 21 mmol/L (22-30); CHLORIDE 123 mmol/L (98-107); GFR AFRICAN-AMERICAN > 60; GLUCOSE,RANDOM 117 mg/dL (75-110); POTASSIUM 3.8 MMOL/L (3.6-5.0); SODIUM 155 mmol/l (132-148)
[2017-06-16] MEDS: Insulin Lispro (humaLOG) 100 Units/ml Inj SC SCH ×5 (11:15→23:05)
[2017-06-16] MEDS: Insulin Detemir 100 Units/ml Inj SC SCH ×2 (11:16→23:04)
--- NOTE | 2017-06-16 14:06 | CON ---
ENDOCRINOLOGY CONSULTATION DATE: LOCATION: ICU, room 427. HISTORY OF PRESENT ILLNESS: This is a 66-year-old male with known history of type 2 diabetes, on oral hypoglycemics, and now admitted with diabetic ketoacidosis and dehydration with hypernatremia and is now being referred for endocrine evaluation and management. PAST MEDICAL HISTORY: As mentioned above, history of type 2 diabetes, currently taking metformin 500 mg p.r.n. as noted; history of hypertension and dyslipidemia; history of a previous right frontal subarachnoid hemorrhage and has been on prednisone 10 mg daily for management of chronic bronchial asthma. He also has had multiple hospital admissions for exacerbations of the same. FAMILY HISTORY: Positive for hypertension and diabetes. SOCIAL HISTORY: The patient has a supportive family. No known substance use. ALLERGIES: TO PENICILLIN WITH CUTANEOUS RASH NOTED. REVIEW OF SYSTEMS: As mentioned above. Admits to generalized body weakness with several bouts of near syncopal and syncopal episodes as noted. He was also found by the family to have recent agitation, confusion, and restlessness with supervening generalized body weakness. No chest pains or palpitations, but admits to episodic bouts of shortness of breath especially on exertion. His oral intake has been variable and suboptimal with nausea, dyspepsia, and vague upper abdominal pains. There was no apparent episodes of any vomiting or diarrhea as noted. However, admits to marked polyuria, nocturia, and polydipsia over the last day or so prior to admission. PHYSICAL EXAMINATION: GENERAL: This is an asthenic male in no apparent distress. VITAL SIGNS: Blood pressure of 140/80, pulse of 100 beats per minute, regular, temperature 97, respirations 20, height is 5 feet 9 inches, and weight is 139 pounds. HEENT: Head normocephalic. Eyes anicteric with pink conjunctivae. Funduscopy not possible at this time. Ears, nose, and throat otherwise normal. NECK: Supple. Thyroid gland is normal in size. No carotid bruits or any cervical adenopathy. CARDIOPULMONARY: Some adynamic precordium. S1, S2 is rapid and regular. LUNGS: Clear to auscultation. ABDOMEN: Flat, soft with positive bowel sounds. EXTREMITIES: No peripheral edema. Pulses are +2 bilaterally. LABORATORY DATA: WBC was 23.6, hemoglobin of 15, hematocrit of 52, MCV 85, platelets 231. The initial chemistries showed a BUN of 75, sodium 147, potassium 4.8, chloride 107, CO2 of 13, glucose 717, and creatinine 1.8. ASSESSMENT: This is a 66-year-old male with uncontrolled and decompensated type 2 insulin-requiring diabetes presenting here with diabetic ketoacidosis and dehydration with supervening hypernatremia with a very strong history of drug omission and poor adherence to his oral hypoglycemics as noted. Moreover, he also has neurological manifestations of confusion, disorientation, agitation, and generalized body weakness with significant prior history of a subarachnoid hemorrhage a few years ago. However, there is a very strong metabolic component for this neurological manifestations as noted thereof. As discussed with the staff, we will discontinue now the insulin drip infusion as his acidosis has resolved with the last CO2 being 21 as noted today. However, there is this persistent hypernatremia and tremendous volume depletion this time as noted. PLAN OF MANAGEMENT: We will start him now on a basal and bolus insulin regimen only as a coverage scale for now with basal insulin to be given as Levemir at 10 units subcu every 12 hours as ordered to start this morning. We will titrate incremental as indicated to optimize metabolic control. A low-dose correction scale using Humalog insulin has been ordered for fingersticks to be done every 3 hours as given. As his mental state improved and is hypersomnolence resolved, then we will advanced his diet to a soft moderate consistency heart healthy diet and would expect hyperglycemic accelerations as noted thereof. Then, we can start him on a fixed dose of a bolus mealtime Humalog insulin as indicated. We will continue the vigorous IV hydration as ordered with normal saline as given. We will obtain serial chemistries and supplement accordingly needed. Tyesha Murdock MD
[2017-06-16] MEDS: Pravastatin Sodium 20 MG TAB PO SCH (16:14)
[2017-06-16] MEDS: Fluticasone-Salmeterol 250-50mcg Diskus IH SCH ×2 (16:20→20:26)
[2017-06-16 16:48] LABS: BLOOD UREA NITROGEN 38 mg/dl (9-20); CALCIUM 7.3 mg/dL (8.4-10.2); CARBON DIOXIDE 21 mmol/L (22-30); CHLORIDE 120 mmol/L (98-107); GFR AFRICAN-AMERICAN > 60; GLUCOSE,RANDOM 172 mg/dL (75-110); POTASSIUM 3.3 MMOL/L (3.6-5.0); SODIUM 148 mmol/l (132-148)
[2017-06-16] MEDS ORDERED: Potassium Chloride 40 MEQ in Sodium Chloride 0.45% 1,000 ML IV SCH (18:15)
[2017-06-16] MEDS: Potassium Chloride 20 mEq ER Tab PO ONE ×2 (19:18→20:20)
[2017-06-17] MEDS: Insulin Lispro (humaLOG) 100 Units/ml Inj SC SCH ×5 (02:00→21:38)
[2017-06-17] MEDS ORDERED: Sodium Chloride 0.9% 500 ML IV ONE (07:38)
[2017-06-17] MEDS ORDERED: Potassium Chl 20 mEq in NS 1,000 ML IV SCH (07:45)
--- NOTE | 2017-06-17 07:49 | CP.CCUPN ---
CCU Subjective - Physician Review Events Since Last Encounter (Free Text): 06/17/17 07:45 His blood sugar, DKA, anion gap , all improved yesterday, K was low, replaced. Still confused, family says that's his baseline, has been uncooperative but not violent. Refused SCDs , but is on lovenox and folleys was removed. Still on one- to-one, family did help to keep him calm. Refused blood work this morning but blood sugar has been controlled and manager culinary following. CCU Objective - Vital Signs / Intake & Output Vital Signs (Last 4 hours): Vital Signs Temp Pulse Resp BP Pulse Ox 06/17/17 06:00 65 17 96/52 L 98 06/17/17 04:00 98.3 F 64 18 86/48 L 98 Intake and Output (Last 8hrs): Intake & Output 06/16/17 06/17/17 06/17/17 22:59 06:59 14:59 Intake Total 440 720 Output Total 800 Balance -360 720 Intake: IV 380 720 Oral 60 Output: Urine 800 Urethral ([place]) 800 - Physical Exam Physical Exam Limitations: Positive for: Altered Mental Status Head: Positive for: Atraumatic Pupils: Positive for: PERRL Conjunctiva: Positive for: Normal Nose (Internal): Positive for: Normal Inspection Neck: Positive for: Normal Range of Motion Respiratory/Chest: Positive for: Clear to Auscultation Cardiovascular: Positive for: Regular Rate and Rhythm Upper Extremity: Positive for: Normal Inspection Lower Extremity: Positive for: Normal Inspection - Medications Active Medications: Active Medications Generic Name Dose Route Start Last Admin Trade Name Freq PRN Reason Stop Dose Admin Albuterol Sulfate 2.5 mg 06/15/17 19:16 Albuterol 0.083% Inhal Dary (2.5 Mg/3 Ml) Ud IH Q6H PRN Shortness of Breath Atenolol 50 mg 06/16/17 09:00 06/16/17 16:14 Tenormin PO 50 mg DAILY [facility] Administration Dextrose 0 ml 06/15/17 18:55 Dextrose 50% Inj IV STAT PRN Hyglycemia Protocol Protocol Dextrose 0 gm 06/16/17 04:30 Glutose 15 PO ONCE PRN Hypoglycemia Protocol Protocol Enoxaparin Sodium 40 mg 06/16/17 09:00 06/16/17 09:09 Lovenox SC 40 mg DAILY [facility] Administration Protocol Glucagon 0 mg 06/15/17 18:55 Glucagen Diagnostic Kit IM STAT PRN Hypoglycemia Protocol Protocol Levofloxacin/Dextrose 750 mg in 150 mls @ 100 mls/hr 06/16/17 09:00 06/16/17 08:19 Levaquin 750mg IVPB 100 mls/hr DAILY [facility] Administration Sodium Chloride 500 mls @ 500 mls/hr 06/17/17 07:38 Sodium Chloride 0.9% IV 06/17/17 08:37 .Q1H ONE Potassium Chloride 20 meq/ 1,010 mls @ 100 mls/hr 06/17/17 07:45 Sodium Chloride IV 06/18/17 07:43 .Q10H6M [facility] Insulin Detemir 10 units 06/16/17 10:00 06/16/17 23:04 Levemir SC 10 unit Q12H [facility] Administration Insulin Human Lispro 0 units 06/17/17 11:30 Humalog SC ACHS [facility] Protocol Pantoprazole Sodium 40 mg 06/16/17 09:00 06/16/17 08:24 Protonix Inj IVP 40 mg DAILY [facility] Administration Pravastatin Sodium 20 mg 06/16/17 09:00 06/16/17 16:14 Pravachol PO 20 mg DAILY [facility] Administration Fluticasone/Salmeterol 1 puff 06/15/17 19:30 06/16/17 20:26 Advair Diskus 250/50 IH Not Given Q12H [facility] - Patient Studies Lab Studies: Microbiology Studies 06/15/17 19:20 Gram Stain - Final Sputum 06/15/17 17:20 Blood Culture - Preliminary Blood-Venous NO GROWTH AFTER 24 HOURS 06/15/17 17:05 Blood Culture - Preliminary Blood-Venous NO GROWTH AFTER 24 HOURS Lab Studies 06/17/17 06/17/17 06/16/17 Range/Units 05:04 01:54 22:57 Sodium (132-148) mmol/l Potassium (3.6-5.0) MMOL/L Chloride (98-107) mmol/L Carbon Dioxide (22-30) mmol/L Anion Gap (10-20) BUN (9-20) mg/dl Creatinine (0.8-1.5) mg/dL Est GFR ( Amer) Est GFR (Non-Af Amer) POC Glucose (mg/dL) 151 H 179 H 254 H (65-110) mg/dL Random Glucose (75-110) mg/dL Lactic Acid (0.7-2.1) MMOL/L Calcium (8.4-10.2) mg/dL Procalcitonin (0.19-0.49) NG/ML 06/16/17 06/16/17 06/16/17 Range/Units 20:16 16:58 16:14 Sodium 148 (132-148) mmol/l Potassium 3.3 L (3.6-5.0) MMOL/L Chloride 120 H (98-107) mmol/L Carbon Dioxide 21 L (22-30) mmol/L Anion Gap 10 (10-20) BUN 38 H (9-20) mg/dl Creatinine 0.8 (0.8-1.5) mg/dL Est GFR ( Amer) > 60 Est GFR (Non-Af Amer) > 60 POC Glucose (mg/dL) 188 H 189 H (65-110) mg/dL Random Glucose 172 H (75-110) mg/dL Lactic Acid (0.7-2.1) MMOL/L Calcium 7.3 L (8.4-10.2) mg/dL Procalcitonin (0.19-0.49) NG/ML 06/16/17 06/16/17 06/16/17 Range/Units 13:56 11:01 09:28 Sodium (132-148) mmol/l Potassium (3.6-5.0) MMOL/L Chloride (98-107) mmol/L Carbon Dioxide (22-30) mmol/L Anion Gap (10-20) BUN (9-20) mg/dl Creatinine (0.8-1.5) mg/dL Est GFR ( Amer) Est GFR (Non-Af Amer) POC Glucose (mg/dL) 248 H 208 H 173 H (65-110) mg/dL Random Glucose (75-110) mg/dL Lactic Acid (0.7-2.1) MMOL/L Calcium (8.4-10.2) mg/dL Procalcitonin (0.19-0.49) NG/ML 06/16/17 06/16/17 06/16/17 Range/Units 08:36 08:30 06:00 Sodium 155 H (132-148) mmol/l Potassium 3.8 (3.6-5.0) MMOL/L Chloride 123 H (98-107) mmol/L Carbon Dioxide 21 L (22-30) mmol/L Anion Gap 15 (10-20) BUN 50 H (9-20) mg/dl Creatinine 1.0 (0.8-1.5) mg/dL Est GFR ( Amer) > 60 Est GFR (Non-Af Amer) > 60 POC Glucose (mg/dL) 122 H (65-110) mg/dL Random Glucose 117 H (75-110) mg/dL Lactic Acid 2.0 (0.7-2.1) MMOL/L Calcium 7.1 L (8.4-10.2) mg/dL Procalcitonin (0.19-0.49) NG/ML 06/16/17 06/15/17 Range/Units 06:00 15:20 Sodium (132-148) mmol/l Potassium (3.6-5.0) MMOL/L Chloride (98-107) mmol/L Carbon Dioxide (22-30) mmol/L Anion Gap (10-20) BUN (9-20) mg/dl Creatinine (0.8-1.5) mg/dL Est GFR ( Amer) Est GFR (Non-Af Amer) POC Glucose (mg/dL) > 500 H* (65-110) mg/dL Random Glucose (75-110) mg/dL Lactic Acid (0.7-2.1) MMOL/L Calcium (8.4-10.2) mg/dL Procalcitonin 0.28 (0.19-0.49) NG/ML Laboratory Results - last 24 hr 06/15/17 06/16/17 06/16/17 15:20 06:00 06:00 Sodium Potassium Chloride Carbon Dioxide Anion Gap BUN Creatinine Est GFR ( Amer) Est GFR (Non-Af Amer) POC Glucose (mg/dL) > 500 H* Random Glucose Lactic Acid 2.0 Calcium Procalcitonin 0.28 06/16/17 06/16/17 06/16/17 08:30 08:36 09:28 Sodium 155 H Potassium 3.8 Chloride 123 H Carbon Dioxide 21 L Anion Gap 15 BUN 50 H Creatinine 1.0 Est GFR ( Amer) > 60 Est GFR (Non-Af Amer) > 60 POC Glucose (mg/dL) 122 H 173 H Random Glucose 117 H Lactic Acid Calcium 7.1 L Procalcitonin 06/16/17 06/16/17 06/16/17 11:01 13:56 16:14 Sodium 148 Potassium 3.3 L Chloride 120 H Carbon Dioxide 21 L Anion Gap 10 BUN 38 H Creatinine 0.8 Est GFR ( Amer) > 60 Est GFR (Non-Af Amer) > 60 POC Glucose (mg/dL) 208 H 248 H Random Glucose 172 H Lactic Acid Calcium 7.3 L Procalcitonin 06/16/17 06/16/17 06/16/17 16:58 20:16 22:57 Sodium Potassium Chloride Carbon Dioxide Anion Gap BUN Creatinine Est GFR ( Amer) Est GFR (Non-Af Amer) POC Glucose (mg/dL) 189 H 188 H 254 H Random Glucose Lactic Acid Calcium Procalcitonin 06/17/17 06/17/17 01:54 05:04 Sodium Potassium Chloride Carbon Dioxide Anion Gap BUN Creatinine Est GFR ( Amer) Est GFR (Non-Af Amer) POC Glucose (mg/dL) 179 H 151 H Random Glucose Lactic Acid Calcium Procalcitonin Fingerstick Blood Sugar Results: 151 Review of Systems - Review of Systems Systems not reviewed;Unavailable: Uncooperative - EENT Eyes: As Per HPI - Cardiovascular Cardiovascular: UNREMARKABLE - Respiratory Respiratory: UNREMARKABLE - Gastrointestinal Gastrointestinal: UNREMARKABLE - Musculoskeletal Musculoskeletal: UNREMARKABLE - Neurological Neurological: Confusion Critical Care Progress Note - Nutrition Nutrition: Nutrition Category Date Time Status Consistent Carbohydrate [DIET] Diets 06/16/17 Lunch Active Assessment/Plan - Assessment and Plan (Free Text) Assessment: DKA; Improved Severe dehydration: improved AMS; some improvement, Leukocytosis: no signs of infection, no fever, high WBC count was due to dehydration and DKA, improving, refused blood work this am Hypokalemia: due to insulin and IV hydration, replaced, blood work refuse by pt this am. Plan: Will try to get blood work again , when family arrived Change BS to AC and HS continue current meds Transfer to [facility].
[2017-06-17 08:11] LABS: BASO # 0.1 K/uL (0.0-0.2); BASO % 0.7 % (0.0-2.0); EOS # 0.1 K/uL (0.0-0.7); EOS % 0.8 % (0.0-4.0); HEMATOCRIT 39.3 % (35.0-51.0); LYMPH # 2.6 K/uL (1.0-4.3); LYMPH % 23.9 % (20.0-40.0); MEAN CELL VOLUME 80.3 fl (80.0-94.0); MEAN CORPUSCULAR HEMOGLOBIN 26.5 pg (27.0-31.0); MEAN CORPUSCULAR HGB CONC 32.9 g/dL (33.0-37.0); MEAN PLATELET VOLUME 11.3 fl (7.2-11.7); MONO # 0.8 K/uL (0.0-0.8); MONO % 7.8 % (0.0-10.0); NEUT # 7.1 K/uL (1.8-7.0); NEUT % 66.8 % (50.0-75.0); NRBC % 0.2 % (0.0-0.0); RED CELL DISTRIBUTION WIDTH 13.7 % (11.5-14.5); WHITE BLOOD COUNT 10.7 K/uL (4.8-10.8)
[2017-06-17 08:13] LABS: ALB/GLOB RATIO 0.8 (1.0-2.1); ALKALINE PHOSPHATASE 61 U/L (38-126); ALT/SGPT 29 U/L (21-72); AST/SGOT 26 U/L (17-59); BILIRUBIN,TOTAL 0.5 mg/dl (0.2-1.3); BLOOD UREA NITROGEN 26 mg/dl (9-20); CALCIUM 6.8 mg/dL (8.4-10.2); CARBON DIOXIDE 25 mmol/L (22-30); CHLORIDE 118 mmol/L (98-107); GFR AFRICAN-AMERICAN > 60; GLUCOSE,RANDOM 75 mg/dL (75-110); POTASSIUM 3.2 MMOL/L (3.6-5.0); SODIUM 149 mmol/l (132-148); TOTAL PROTEIN 4.7 G/DL (6.3-8.2)
[2017-06-17] MEDS ORDERED: Potassium Chloride 20 mEq ER Tab PO ONE (08:41)
[2017-06-17] MEDS: levoFLOXacin 750 mg in D5W 750 MG/150 ML BAG IVPB SCH (08:48)
[2017-06-17] MEDS: Pravastatin Sodium 20 MG TAB PO SCH (08:48)
[2017-06-17] MEDS: Enoxaparin 40 mg Syringe SC SCH (08:50)
[2017-06-17] MEDS: Fluticasone-Salmeterol 250-50mcg Diskus IH SCH ×2 (08:55→21:37)
--- NOTE | 2017-06-17 09:09 | CP.PCM.PN ---
Subjective - Date & Time of Evaluation Date of Evaluation: 06/17/17 Time of Evaluation: 09:07 - Subjective Subjective: no complaints except being hungry. pt is agitated that his food tray has not come yet. seems disoriented and aggressive-not baseline for this patient. vs wnl-bp 86. getting ivf. am labs noted. k is low w/ kdur ordered. wbc trending down. no f/c, n/v/d. no cough/congestion Objective - Vital Signs/Intake and Output Vital Signs (last 24 hours): Temp Pulse Resp BP Pulse Ox 98.0 F 65 16 112/63 100 06/17/17 08:00 06/17/17 08:00 06/17/17 08:00 06/17/17 08:00 06/17/17 08:00 Intake and Output: 06/17/17 06/17/17 06:59 18:59 Intake Total 860 400 Balance 860 400 - Medications Medications: Current Medications Albuterol Sulfate (Albuterol 0.083% Inhal Dary (2.5 Mg/3 Ml) Ud) 2.5 mg IH Q6H PRN PRN Reason: Shortness of Breath Atenolol (Tenormin) 50 mg PO DAILY [facility] Last Admin: 06/16/17 16:14 Dose: 50 mg Dextrose (Dextrose 50% Inj) 0 ml IV STAT PRN; Protocol PRN Reason: Hyglycemia Protocol Dextrose (Glutose 15) 0 gm PO ONCE PRN; Protocol PRN Reason: Hypoglycemia Protocol Enoxaparin Sodium (Lovenox) 40 mg SC DAILY [facility] PRN Reason: Protocol Last Admin: 06/17/17 08:50 Dose: 40 mg Glucagon (Glucagen Diagnostic Kit) 0 mg IM STAT PRN; Protocol PRN Reason: Hypoglycemia Protocol Levofloxacin/Dextrose (Levaquin 750mg) 750 mg in 150 mls @ 100 mls/hr IVPB DAILY [facility] Last Admin: 06/17/17 08:48 Dose: 100 mls/hr Potassium Chloride 40 meq/ (Sodium Chloride) 1,020 mls @ 100 mls/hr IV .[id number] [facility] Stop: 06/18/17 08:43 Insulin Detemir (Levemir) 10 units SC Q12H [facility] Last Admin: 06/16/17 23:04 Dose: 10 unit Insulin Human Lispro (Humalog) 0 units SC ACHS [facility] PRN Reason: Protocol Pantoprazole Sodium (Protonix Inj) 40 mg IVP DAILY [facility] Last Admin: 06/17/17 08:49 Dose: 40 mg Pravastatin Sodium (Pravachol) 20 mg PO DAILY [facility] Last Admin: 06/17/17 08:48 Dose: 20 mg Fluticasone/Salmeterol (Advair Diskus 250/50) 1 puff IH Q12H [facility] Last Admin: 06/17/17 08:55 Dose: 1 puff - Labs Labs: 06/17/17 08:00 06/17/17 07:50 PT 11.1 Seconds (9.8-13.1) 06/15/17 18:25 INR 1.0 (0.9-1.2) 06/15/17 18:25 APTT 26.3 Seconds (25.6-37.1) 06/15/17 18:25 - Constitutional Appears: Well, Non-toxic, No Acute Distress, Agitated - Head Exam Head Exam: ATRAUMATIC, NORMAL INSPECTION, NORMOCEPHALIC - Eye Exam Eye Exam: EOMI, Normal appearance, PERRL Pupil Exam: NORMAL ACCOMODATION, PERRL - ENT Exam ENT Exam: Mucous Membranes Moist, Normal Exam - Neck Exam Neck Exam: Full ROM, Normal Inspection. absent: Lymphadenopathy - Respiratory Exam Respiratory Exam: Clear to Ausculation Bilateral, NORMAL BREATHING PATTERN - Cardiovascular Exam Cardiovascular Exam: REGULAR RHYTHM, RRR, +S1, +S2. absent: Murmur - GI/Abdominal Exam GI & Abdominal Exam: Soft, Normal Bowel Sounds. absent: Tenderness - Extremities Exam Extremities Exam: Full ROM, Normal Capillary Refill, Normal Inspection. absent : Joint Swelling, Pedal Edema - Back Exam Back Exam: NORMAL INSPECTION - Neurological Exam Neurological Exam: Abnormal Gait, Alert, Awake, CN II-XII Intact, Oriented x3 - Psychiatric Exam Psychiatric exam: Normal Affect, Normal Mood - Skin Skin Exam: Dry, Intact, Normal Color, Warm Assessment and Plan - Assessment and Plan (Free Text) Assessment: 1-dka/uncontrolled dm2-likelyr t/ steroids from asthma exacerbation, insulin gtt , endo consult, ivf, icu care, fsbg, insulin gtt dc, meal coverage and levemir 2-pneumonia causing sepsis-monitor bw, c/s, rocephin d/c r/t rash, zithromax, levaquin 3-dvt ppx-scd and ae hose, lovenox [id number], monitor 5-agitation-?? r/t steroids vs icu vs other process, psych consult prn
[2017-06-17] MEDS: Insulin Detemir 100 Units/ml Inj SC SCH (09:39)
[2017-06-17] MEDS: Potassium Chloride 40 MEQ in Sodium Chloride 0.45% 1,000 ML IV SCH ×2 (09:54→21:52)
[2017-06-17] MEDS ORDERED: Potassium CL 10mEq/100ml 100 ML IVPB SCH (10:00)
[2017-06-17] MEDS ORDERED: Insulin Lispro (humaLOG) 100 Units/ml Inj SC SCH (11:30)
--- NOTE | 2017-06-17 14:13 | PN ---
ENDO FOLLOWUP NOTE DATE: LOCATION: Room 667. SUBJECTIVE: This is a 66-year-old male with recent uncontrolled type 2 insulin-requiring diabetes, presenting here with diabetic ketoacidosis and dehydration and is now being followed closely for metabolic management. His glycemic levels are fluctuating, but improved and the latest glucose values have ranged from 151-179 and 254 mg/dL. His latest chemistry showed a BUN of 26, sodium 149, potassium 3.2, chloride 118, CO2 of 25, glucose 75 and creatinine 0.8. He received intensive insulin therapy with an insulin drip infusion, which was discontinued yesterday and also received vigorous IV hydration with further management of dehydration and hypernatremia, which have improved accordingly as noted. So, at this time, we will restart once again his oral hypoglycemic drug therapy and we will add Januvia given as 100 mg daily with metformin to be restarted as 500 mg b.i.d. as ordered. We will modify the basal insulin with Levemir to be given as 8 units subcu at bedtime daily to start tonight. We will titrate incremental as indicated to optimize metabolic control. We will also modify the coverage scale to obviate hypoglycemia and detailed orders have been given. We will obtain serial chemistries and supplement accordingly as needed. We will follow. Tyesha Murdock MD
[2017-06-17] MEDS ORDERED: Insulin Detemir 100 Units/ml Inj SC SCH (22:00)
[2017-06-18 06:54] LABS: ALB/GLOB RATIO 0.9 (1.0-2.1); ALKALINE PHOSPHATASE 73 U/L (38-126); ALT/SGPT 21 U/L (21-72); AST/SGOT 25 U/L (17-59); BILIRUBIN,TOTAL 0.4 mg/dl (0.2-1.3); BLOOD UREA NITROGEN 22 mg/dl (9-20); CARBON DIOXIDE 22 mmol/L (22-30); CHLORIDE 116 mmol/L (98-107); GFR AFRICAN-AMERICAN > 60; GLUCOSE,RANDOM 354 mg/dL (75-110); POTASSIUM 4.4 MMOL/L (3.6-5.0); SODIUM 143 mmol/l (132-148); TOTAL PROTEIN 4.9 G/DL (6.3-8.2)
[2017-06-18 07:21] LABS: BASO % 0.4 % (0.0-2.0); EOS # 0.1 K/uL (0.0-0.7); EOS % 0.8 % (0.0-4.0); HEMATOCRIT 41.9 % (35.0-51.0); LYMPH # 2.1 K/uL (1.0-4.3); LYMPH % 31.1 % (20.0-40.0); MEAN CELL VOLUME 83.4 fl (80.0-94.0); MEAN CORPUSCULAR HEMOGLOBIN 26.4 pg (27.0-31.0); MEAN CORPUSCULAR HGB CONC 31.7 g/dL (33.0-37.0); MEAN PLATELET VOLUME 11.9 fl (7.2-11.7); MONO # 0.6 K/uL (0.0-0.8); MONO % 8.1 % (0.0-10.0); NEUT # 4.1 K/uL (1.8-7.0); NEUT % 59.6 % (50.0-75.0); NRBC % 0.2 % (0.0-0.0); RED CELL DISTRIBUTION WIDTH 14.5 % (11.5-14.5); WHITE BLOOD COUNT 6.9 K/uL (4.8-10.8)
[2017-06-18] MEDS: Fluticasone-Salmeterol 250-50mcg Diskus IH SCH ×2 (09:16→20:30)
[2017-06-18] MEDS: Insulin Lispro (humaLOG) 100 Units/ml Inj SC SCH ×5 (09:17→22:27)
[2017-06-18] MEDS: levoFLOXacin 750 mg in D5W 750 MG/150 ML BAG IVPB SCH (09:21)
[2017-06-18] MEDS: Pravastatin Sodium 20 MG TAB PO SCH (09:21)
[2017-06-18] MEDS: Enoxaparin 40 mg Syringe SC SCH (09:21)
--- NOTE | 2017-06-18 09:22 | CP.PCM.PN ---
Subjective - Date & Time of Evaluation Date of Evaluation: 06/18/17 Time of Evaluation: 09:21 - Subjective Subjective: more alert and coherant. not aggressive/disoriented. still on 1:1. no f/c n/v/d. bw noted. bun/cr nromalizing. Objective - Vital Signs/Intake and Output Vital Signs (last 24 hours): Temp Pulse Resp BP Pulse Ox 97.8 F 73 20 99/64 L 97 06/18/17 08:31 06/18/17 08:31 06/18/17 08:31 06/18/17 08:31 06/18/17 08:31 Intake and Output: 06/18/17 06/18/17 06:59 18:59 Intake Total 1200 Output Total 700 Balance 500 - Medications Medications: Current Medications Albuterol Sulfate (Albuterol 0.083% Inhal Adry (2.5 Mg/3 Ml) Ud) 2.5 mg IH Q6H PRN PRN Reason: Shortness of Breath Atenolol (Tenormin) 50 mg PO DAILY [facility] Last Admin: 06/17/17 09:36 Dose: Not Given Dextrose (Dextrose 50% Inj) 0 ml IV STAT PRN; Protocol PRN Reason: Hyglycemia Protocol Dextrose (Glutose 15) 0 gm PO ONCE PRN; Protocol PRN Reason: Hypoglycemia Protocol Enoxaparin Sodium (Lovenox) 40 mg SC DAILY [facility] PRN Reason: Protocol Last Admin: 06/17/17 08:50 Dose: 40 mg Glucagon (Glucagen Diagnostic Kit) 0 mg IM STAT PRN; Protocol PRN Reason: Hypoglycemia Protocol Levofloxacin/Dextrose (Levaquin 750mg) 750 mg in 150 mls @ 100 mls/hr IVPB DAILY [facility] Last Admin: 06/17/17 08:48 Dose: 100 mls/hr Insulin Detemir (Levemir) 8 units SC HS [facility] Last Admin: 06/17/17 21:38 Dose: 8 units Insulin Human Lispro (Humalog) 0 units SC ACHS [facility] PRN Reason: Protocol Last Admin: 06/17/17 21:38 Dose: Not Given Pantoprazole Sodium (Protonix Inj) 40 mg IVP DAILY [facility] Last Admin: 06/17/17 08:49 Dose: 40 mg Pravastatin Sodium (Pravachol) 20 mg PO DAILY [facility] Last Admin: 06/17/17 08:48 Dose: 20 mg Fluticasone/Salmeterol (Advair Diskus 250/50) 1 puff IH Q12H [facility] Last Admin: 06/17/17 21:37 Dose: 1 puff Sitagliptin Phosphate (Januvia) 100 mg PO DAILY [facility] - Labs Labs: 06/18/17 06:00 06/18/17 06:00 PT 11.1 Seconds (9.8-13.1) 06/15/17 18:25 INR 1.0 (0.9-1.2) 06/15/17 18:25 APTT 26.3 Seconds (25.6-37.1) 06/15/17 18:25 Assessment and Plan - Assessment and Plan (Free Text) Assessment: 1-dka/uncontrolled dm2-likelyr t/ steroids from asthma exacerbation, insulin gtt , endo consult, ivf, , fsbg, insulin gtt dc, meal coverage and levemir 2-pneumonia causing sepsis-monitor bw, c/s, rocephin d/c r/t rash, zithromax, levaquin 3-dvt ppx-scd and ae hose, lovenox 2-[id number]-tija, monitor 5-agitation-?? r/t steroids vs icu vs other process, psych consult prn, improving, willl monitor
--- NOTE | 2017-06-18 19:00 | PN ---
ENDO FOLLOWUP NOTE DATE: LOCATION: Room 667. SUBJECTIVE: This is a 66-year-old male with recent uncontrolled type 2 insulin-requiring diabetes, presenting here with marked hyperglycemic accelerations and supervening diabetic ketoacidosis and dehydration and has since then improved clinically and metabolically as noted thereof. He received vigorous IV hydration and intensive insulin therapy in the ICU as noted. His latest chemistries showed a BUN of 22, sodium 143, potassium 4.4, chloride 116, CO2 of 22, glucose 354, and creatinine 0.8. His glucose levels have ranged from 285-372 mL/dL. So, at this time, we will modify once again his basal and bolus insulin regimen and increase the Levemir to 20 units subcu at bedtime daily to start tonight. We will titrate incremental as indicated to optimize metabolic control. We will also continue the low-dose correction scale using Humalog insulin as given to obviate hypoglycemia and detailed orders have been given. We will also add Humalog given as 6 units subcu t.i.d. before meals to start at dinnertime today as ordered. We will titrate incremental as indicated to optimize metabolic control. We will also obtain serial chemistries and supplement accordingly as needed. We will continue the IV hydration and obtain serial chemistries accordingly. We will follow. Tyesha Murdock MD
[2017-06-18] MEDS ORDERED: Insulin Detemir 100 Units/ml Inj SC SCH (22:00)
[2017-06-19 06:36] LABS: BASO % 0.4 % (0.0-2.0); EOS # 0.1 K/uL (0.0-0.7); EOS % 1.5 % (0.0-4.0); HEMATOCRIT 37.5 % (35.0-51.0); LYMPH # 2.4 K/uL (1.0-4.3); LYMPH % 30.1 % (20.0-40.0); MEAN CELL VOLUME 81.9 fl (80.0-94.0); MEAN CORPUSCULAR HEMOGLOBIN 26.8 pg (27.0-31.0); MEAN CORPUSCULAR HGB CONC 32.7 g/dL (33.0-37.0); MEAN PLATELET VOLUME 11.3 fl (7.2-11.7); MONO # 0.7 K/uL (0.0-0.8); MONO % 8.6 % (0.0-10.0); NEUT # 4.7 K/uL (1.8-7.0); NEUT % 59.4 % (50.0-75.0); RED CELL DISTRIBUTION WIDTH 13.7 % (11.5-14.5); WHITE BLOOD COUNT 7.9 K/uL (4.8-10.8)
[2017-06-19 07:00] LABS: ALB/GLOB RATIO 0.9 (1.0-2.1); ALKALINE PHOSPHATASE 68 U/L (38-126); ALT/SGPT 31 U/L (21-72); AST/SGOT 21 U/L (17-59); BILIRUBIN,TOTAL 0.3 mg/dl (0.2-1.3); BLOOD UREA NITROGEN 15 mg/dl (9-20); CALCIUM 7.8 mg/dL (8.4-10.2); CARBON DIOXIDE 27 mmol/L (22-30); CHLORIDE 112 mmol/L (98-107); GFR AFRICAN-AMERICAN > 60; GLUCOSE,RANDOM 178 mg/dL (75-110); POTASSIUM 3.7 MMOL/L (3.6-5.0); SODIUM 143 mmol/l (132-148)
[2017-06-19] MEDS: Insulin Lispro (humaLOG) 100 Units/ml Inj SC SCH ×7 (07:02→21:30)
--- NOTE | 2017-06-19 07:32 | CP.PCM.PN ---
Subjective - Date & Time of Evaluation Date of Evaluation: 06/19/17 Time of Evaluation: 07:32 - Subjective Subjective: doing well, no confusion/agitation. nof /c, n/v/d. bw noted. spoke w/ daughter. plan for dc tomorrow Objective - Vital Signs/Intake and Output Vital Signs (last 24 hours): Temp Pulse Resp BP Pulse Ox 98.5 F 89 18 110/70 96 06/19/17 00:00 06/19/17 00:00 06/19/17 00:00 06/19/17 00:00 06/19/17 00:00 Intake and Output: 06/19/17 06/19/17 06:59 18:59 Intake Total 480 Output Total 200 Balance 280 - Medications Medications: Current Medications Albuterol Sulfate (Albuterol 0.083% Inhal Dary (2.5 Mg/3 Ml) Ud) 2.5 mg IH Q6H PRN PRN Reason: Shortness of Breath Atenolol (Tenormin) 50 mg PO DAILY [facility] Last Admin: 06/18/17 09:36 Dose: Not Given Dextrose (Dextrose 50% Inj) 0 ml IV STAT PRN; Protocol PRN Reason: Hyglycemia Protocol Dextrose (Glutose 15) 0 gm PO ONCE PRN; Protocol PRN Reason: Hypoglycemia Protocol Enoxaparin Sodium (Lovenox) 40 mg SC DAILY [facility] PRN Reason: Protocol Last Admin: 06/18/17 09:21 Dose: 40 mg Glucagon (Glucagen Diagnostic Kit) 0 mg IM STAT PRN; Protocol PRN Reason: Hypoglycemia Protocol Levofloxacin/Dextrose (Levaquin 750mg) 750 mg in 150 mls @ 100 mls/hr IVPB DAILY [facility] Last Admin: 06/18/17 09:21 Dose: 100 mls/hr Insulin Detemir (Levemir) 20 units SC HS [facility] Last Admin: 06/18/17 22:29 Dose: 20 units Insulin Human Lispro (Humalog) 6 units SC AC [facility] Last Admin: 06/18/17 17:45 Dose: 6 units Insulin Human Lispro (Humalog) 0 units SC ACHS [facility] PRN Reason: Protocol Last Admin: 06/19/17 07:02 Dose: Not Given Pantoprazole Sodium (Protonix Inj) 40 mg IVP DAILY [facility] Last Admin: 06/18/17 09:25 Dose: 40 mg Pravastatin Sodium (Pravachol) 20 mg PO DAILY [facility] Last Admin: 06/18/17 09:21 Dose: 20 mg Fluticasone/Salmeterol (Advair Diskus 250/50) 1 puff IH Q12H [facility] Last Admin: 06/18/17 20:30 Dose: 1 puff Sitagliptin Phosphate (Januvia) 100 mg PO DAILY [facility] Last Admin: 06/18/17 09:20 Dose: 100 mg - Labs Labs: 06/19/17 05:55 06/19/17 05:55 PT 11.1 Seconds (9.8-13.1) 06/15/17 18:25 INR 1.0 (0.9-1.2) 06/15/17 18:25 APTT 26.3 Seconds (25.6-37.1) 06/15/17 18:25 - Constitutional Appears: Well, Non-toxic, No Acute Distress - Head Exam Head Exam: ATRAUMATIC, NORMAL INSPECTION, NORMOCEPHALIC - Eye Exam Eye Exam: EOMI, Normal appearance, PERRL Pupil Exam: NORMAL ACCOMODATION, PERRL - ENT Exam ENT Exam: Mucous Membranes Moist, Normal Exam - Neck Exam Neck Exam: Full ROM, Normal Inspection. absent: Lymphadenopathy - Respiratory Exam Respiratory Exam: Clear to Ausculation Bilateral, NORMAL BREATHING PATTERN - Cardiovascular Exam Cardiovascular Exam: REGULAR RHYTHM, RRR, +S1, +S2. absent: Murmur - GI/Abdominal Exam GI & Abdominal Exam: Soft, Normal Bowel Sounds. absent: Tenderness - Extremities Exam Extremities Exam: Full ROM, Normal Capillary Refill, Normal Inspection. absent : Joint Swelling, Pedal Edema - Back Exam Back Exam: NORMAL INSPECTION - Neurological Exam Neurological Exam: Alert, Awake, CN II-XII Intact, Normal Gait, Oriented x3 - Psychiatric Exam Psychiatric exam: Normal Affect, Normal Mood - Skin Skin Exam: Dry, Intact, Normal Color, Warm Assessment and Plan - Assessment and Plan (Free Text) Assessment: 1-dka/uncontrolled dm2-likelyr t/ steroids from asthma exacerbation,endo consult , ivf, , fsbg, insulin gtt dc, meal coverage and levemir 2-pneumonia causing sepsis-monitor bw, c/s, rocephin d/c r/t rash, zithromax, levaquin 3-dvt ppx-scd and ae hose, lovenox 3-[id number], monitor 5-agitation-?? r/t steroids vs icu vs other process, psych consult prn, improving, willl monitor calm today
[2017-06-19] MEDS: Fluticasone-Salmeterol 250-50mcg Diskus IH SCH ×2 (09:00→20:00)
[2017-06-19] MEDS: levoFLOXacin 750 mg in D5W 750 MG/150 ML BAG IVPB SCH (09:02)
[2017-06-19] MEDS: Enoxaparin 40 mg Syringe SC SCH (09:02)
[2017-06-19] MEDS: Pravastatin Sodium 20 MG TAB PO SCH (09:03)
--- NOTE | 2017-06-19 17:29 | PN ---
ENDO FOLLOWUP NOTE DATE: LOCATION: Room #667. HISTORY OF PRESENT ILLNESS: This is a 66-year-old male with recent uncontrolled type 2 insulin-requiring diabetes, now being followed closely for metabolic management. His glycemic levels are fluctuating, but much improved at this time and the latest glucose values have ranged from 174 to 193 and 227 mg/dL. His latest chemistry showed a BUN of 15, sodium 143, potassium 3.7, chloride 112, CO2 of 27, glucose 178, and creatinine 0.8. So, at this time, we will continue the same Humalog insulin given before meals at the dose of 8 units subcu t.i.d. before meals as ordered. We will increase and titrate the basal insulin with Levemir to be given as 22 units subcu at bedtime daily to start tonight. We will also continue the low-dose correction scale using Humalog insulin as given. We will titrate incremental as indicated to optimize metabolic control. We will follow. Tyesha Murdock MD
[2017-06-19] MEDS ORDERED: Insulin Detemir 100 Units/ml Inj SC SCH (22:00)
[2017-06-20 06:33] LABS: BASO % 0.5 % (0.0-2.0); EOS # 0.1 K/uL (0.0-0.7); EOS % 1.3 % (0.0-4.0); HEMATOCRIT 38.4 % (35.0-51.0); LYMPH # 2.4 K/uL (1.0-4.3); LYMPH % 27.2 % (20.0-40.0); MEAN CELL VOLUME 81.8 fl (80.0-94.0); MEAN CORPUSCULAR HEMOGLOBIN 26.3 pg (27.0-31.0); MEAN CORPUSCULAR HGB CONC 32.2 g/dL (33.0-37.0); MEAN PLATELET VOLUME 10.8 fl (7.2-11.7); MONO # 0.8 K/uL (0.0-0.8); MONO % 9.6 % (0.0-10.0); NEUT # 5.3 K/uL (1.8-7.0); NEUT % 61.4 % (50.0-75.0); NRBC % 0.1 % (0.0-0.0); RED CELL DISTRIBUTION WIDTH 14.2 % (11.5-14.5); WHITE BLOOD COUNT 8.7 K/uL (4.8-10.8)
[2017-06-20 06:44] LABS: ALB/GLOB RATIO 0.9 (1.0-2.1); ALKALINE PHOSPHATASE 91 U/L (38-126); ALT/SGPT 37 U/L (21-72); AST/SGOT 35 U/L (17-59); BILIRUBIN,TOTAL 0.2 mg/dl (0.2-1.3); BLOOD UREA NITROGEN 18 mg/dl (9-20); CALCIUM 8.1 mg/dL (8.4-10.2); CARBON DIOXIDE 28 mmol/L (22-30); CHLORIDE 109 mmol/L (98-107); GFR AFRICAN-AMERICAN > 60; GLUCOSE,RANDOM 224 mg/dL (75-110); POTASSIUM 3.8 MMOL/L (3.6-5.0); SODIUM 141 mmol/l (132-148); TOTAL PROTEIN 5.2 G/DL (6.3-8.2)
[2017-06-20] MEDS: Insulin Lispro (humaLOG) 100 Units/ml Inj SC SCH ×6 (06:57→17:35)
--- NOTE | 2017-06-20 08:26 | CP.PCM.DIS ---
Provider - Provider Date of Admission: 06/15/17 19:15 Attending physician: Kalia Doan MD Time Spent in preparation of Discharge (in minutes): 15 Hospital Course - Lab Results Lab Results: Micro Results 06/15/17 17:20 Blood-Venous Blood Culture - Preliminary NO GROWTH AFTER 4 DAYS 06/15/17 17:05 Blood-Venous Blood Culture - Preliminary NO GROWTH AFTER 4 DAYS 06/17/17 10:15 Nose MRSA Culture (Admit) - Final MRSA NOT DETECTED 06/15/17 19:20 Sputum Gram Stain - Final 06/15/17 19:20 Sputum Sputum Culture - Final Staphylococcus Aureus 06/15/17 08:20 Naris MRSA Culture (Admit) - Final MRSA NOT DETECTED 06/15/17 18:34 Urine,Clean Catch Urine Culture - Final 10-50,000 CFU/ML. MULTIPLE SPECIES. PROBABLE CONTAMINATION. Most Recent Lab Values WBC 8.7 K/uL (4.8-10.8) 06/20/17 06:00 RBC 4.69 Mil/uL (4.40-5.90) 06/20/17 06:00 Hgb 12.4 g/dL (12.0-18.0) 06/20/17 06:00 Hct 38.4 % (35.0-51.0) 06/20/17 06:00 MCV 81.8 fl (80.0-94.0) 06/20/17 06:00 MCH 26.3 pg (27.0-31.0) L 06/20/17 06:00 MCHC 32.2 g/dL (33.0-37.0) L 06/20/17 06:00 RDW 14.2 % (11.5-14.5) 06/20/17 06:00 Plt Count 133 K/uL (130-400) 06/20/17 06:00 MPV 10.8 fl (7.2-11.7) 06/20/17 06:00 Neut % (Auto) 61.4 % (50.0-75.0) 06/20/17 06:00 Lymph % (Auto) 27.2 % (20.0-40.0) 06/20/17 06:00 Griggs % (Auto) 9.6 % (0.0-10.0) 06/20/17 06:00 Eos % (Auto) 1.3 % (0.0-4.0) 06/20/17 06:00 Baso % (Auto) 0.5 % (0.0-2.0) 06/20/17 06:00 Neut # 5.3 K/uL (1.8-7.0) 06/20/17 06:00 Lymph # 2.4 K/uL (1.0-4.3) 06/20/17 06:00 Griggs # 0.8 K/uL (0.0-0.8) 06/20/17 06:00 Eos # 0.1 K/uL (0.0-0.7) 06/20/17 06:00 Baso # 0.0 K/uL (0.0-0.2) 06/20/17 06:00 Neutrophils % (Manual) 82 % (42-75) H 06/15/17 18:25 Band Neutrophils % 3 % (0-2) H 06/15/17 18:25 Lymphocytes % (Manual) 7 % (20-50) L 06/15/17 18:25 Monocytes % (Manual) 8 % (0-10) 06/15/17 18:25 Toxic Granulation Present 06/15/17 18:25 Platelet Estimate Normal (NORMAL) 06/15/17 18:25 Large Platelets Present 06/15/17 18:25 Hypochromasia (manual) Slight 06/15/17 18:25 PT 11.1 Seconds (9.8-13.1) 06/15/17 18:25 INR 1.0 (0.9-1.2) 06/15/17 18:25 APTT 26.3 Seconds (25.6-37.1) 06/15/17 18:25 pCO2 23 mm/Hg (35-45) L 06/15/17 16:25 pO2 27 mm/Hg (30-55) L 06/15/17 20:21 HCO3 11.8 mmol/L (21-28) L 06/15/17 16:25 ABG pH 7.21 (7.35-7.45) L 06/15/17 16:25 ABG Total CO2 9.9 mmol/L (22-28) L 06/15/17 16:25 ABG O2 Saturation 99.2 % (95-98) H 06/15/17 16:25 ABG Base Excess -16.8 mmol/L (-2.0-3.0) L 06/15/17 16:25 Zoran Test Yes 06/15/17 16:25 ABG Potassium 4.5 mmol/L (3.6-5.2) 06/15/17 16:25 VBG pH 7.10 (7.32-7.43) L* 06/15/17 20:21 VBG pCO2 47 mmHg (40-60) 06/15/17 20:21 VBG HCO3 11.4 mmol/L 06/15/17 20:21 VBG Total CO2 16.0 mmol/L (22-28) L 06/15/17 20:21 VBG O2 Sat (Calc) 49.1 % (40-65) 06/15/17 20:21 VBG Base Excess -14.9 mmol/L (0.0-2.0) L 06/15/17 20:21 VBG Potassium 7.3 mmol/L (3.6-5.2) H* 06/15/17 20:21 A-a O2 Difference 25.0 mm/Hg 06/15/17 16:25 Sodium 146.0 mmol/L (132-148) 06/15/17 20:21 Chloride 100.0 mmol/L (98-107) 06/15/17 20:21 Glucose > 750 mg/dL (75-110) H* 06/15/17 20:21 Lactate 6.4 mmol/L (0.7-2.1) H* 06/15/17 20:21 FiO2 21.0 % 06/15/17 20:21 Crit Value Called To Anika trujillo md 06/15/17 20:21 Crit Value Called By Wenceslao 06/15/17 20:21 Crit Value Read Back Y 06/15/17 20:21 Blood Gas Notified Time 202906/15/17 20:21 Sodium 141 mmol/l (132-148) 06/20/17 06:00 Potassium 3.8 MMOL/L (3.6-5.0) 06/20/17 06:00 Chloride 109 mmol/L (98-107) H 06/20/17 06:00 Carbon Dioxide 28 mmol/L (22-30) 06/20/17 06:00 Anion Gap 8 (10-20) L 06/20/17 06:00 BUN 18 mg/dl (9-20) 06/20/17 06:00 Creatinine 0.9 mg/dL (0.8-1.5) 06/20/17 06:00 Est GFR ( Amer) > 60 06/20/17 06:00 Est GFR (Non-Af Amer) > 60 06/20/17 06:00 POC Glucose (mg/dL) 268 mg/dL (65-110) H 06/20/17 05:55 Random Glucose 224 mg/dL (75-110) H 06/20/17 06:00 Lactic Acid 2.0 MMOL/L (0.7-2.1) 06/16/17 06:00 Calcium 8.1 mg/dL (8.4-10.2) L 06/20/17 06:00 Phosphorus 2.6 mg/dl (2.5-4.5) 06/16/17 01:50 Magnesium 2.4 MG/DL (1.6-2.3) H 06/16/17 01:50 Total Bilirubin 0.2 mg/dl (0.2-1.3) 06/20/17 06:00 AST 35 U/L (17-59) 06/20/17 06:00 ALT 37 U/L (21-72) 06/20/17 06:00 Alkaline Phosphatase 91 U/L (38-126) 06/20/17 06:00 Total Creatine Kinase 63 U/L (55-170) 06/15/17 18:30 Troponin I 0.0600 ng/mL (0.00-0.120) 06/15/17 18:30 Total Protein 5.2 G/DL (6.3-8.2) L 06/20/17 06:00 Albumin 2.5 g/dL (3.5-5.0) L 06/20/17 06:00 Globulin 2.7 gm/dL (2.2-3.9) 06/20/17 06:00 Albumin/Globulin Ratio 0.9 (1.0-2.1) L 06/20/17 06:00 Procalcitonin 0.28 NG/ML (0.19-0.49) 06/16/17 06:00 Arterial Blood Potassium 4.5 mmol/L (3.6-5.2) 06/15/17 16:25 Venous Blood Potassium 7.3 mmol/L (3.6-5.2) H* 06/15/17 20:21 Urine Color Yellow (YELLOW) 06/15/17 19:20 Urine Clarity Clear (Clear) 06/15/17 19:20 Urine pH 5.0 (5.0-8.0) 06/15/17 19:20 Ur Specific Jaffrey 1.028 (1.003-1.030) 06/15/17 19:20 Urine Protein Negative mg/dL (NEGATIVE) 06/15/17 19:20 Urine Glucose (UA) >=500 mg/dL (Normal) 06/15/17 19:20 Urine Ketones 20 mg/dL (NEGATIVE) 06/15/17 19:20 Urine Blood Negative (NEGATIVE) 06/15/17 19:20 Urine Nitrate Negative (NEGATIVE) 06/15/17 19:20 Urine Bilirubin Negative (NEGATIVE) 06/15/17 19:20 Urine Urobilinogen 0.2-1.0 mg/dL (0.2-1.0) 06/15/17 19:20 Ur Leukocyte Esterase Neg June/uL (Negative) 06/15/17 19:20 Urine RBC (Auto) 3 /hpf (0-3) 06/15/17 19:20 Urine Microscopic WBC 2 /hpf (0-5) 06/15/17 19:20 Urine Bacteria Rare (<OCC) 06/15/17 19:20 Hyaline Casts 0-2 /hpf (0-2) 06/15/17 19:20 Urine Opiates Screen Negative (NEGATIVE) 06/15/17 18:34 Urine Methadone Screen Negative (NEGATIVE) 06/15/17 18:34 Ur Barbiturates Screen Negative (NEGATIVE) 06/15/17 18:34 Ur Phencyclidine Scrn Negative (NEGATIVE) 06/15/17 18:34 Ur Amphetamines Screen Negative (NEGATIVE) 06/15/17 18:34 U Benzodiazepines Scrn Negative (NEGATIVE) 06/15/17 18:34 U Oth Cocaine Metabols Negative (NEGATIVE) 06/15/17 18:34 U Cannabinoids Screen Negative (NEGATIVE) 06/15/17 18:34 Alcohol, Quantitative < 10 mg/dl (0-10) 06/15/17 18:30 Serum Ketones Negative (NEGATIVE) 06/15/17 18:30 Discharge Exam - Head Exam Head Exam: ATRAUMATIC, NORMAL INSPECTION, NORMOCEPHALIC Discharge Plan - Discharge Medications Prescriptions: Insulin Detemir [Levemir] 20 units SC HS #1 vial Levofloxacin [Levaquin] 500 mg PO DAILY #5 tablet SITagliptin [Januvia] 100 mg PO DAILY #30 tab Syring-Needl,Disp,Insul,0.3 ml [Caretouch Insulin Syringe] 1 each HS #30 disp.syrin - Follow Up Plan Condition: CRITICAL Disposition: HOME/ ROUTINE Additional Instructions: pt doing well, w/o complaitns. mental status appears back to baseline. no f/c, n /v/d. bw noted. meds escribed. daughter aware of dc cm to [facility] Syncapse f/u rmg in am, rted prn meds per med rec fianl dx-hhnk, dka, pna, sepsis, uncontrolled dm2
[2017-06-20] MEDS ORDERED: Pantoprazole 40 mg EC Tab PO SCH (09:00)
[2017-06-20] MEDS: Pravastatin Sodium 20 MG TAB PO SCH (10:00)
[2017-06-20] MEDS: Enoxaparin 40 mg Syringe SC SCH (10:00)
[2017-06-20] MEDS: Fluticasone-Salmeterol 250-50mcg Diskus IH SCH (10:03)
[2017-06-20] MEDS: levoFLOXacin 750 mg in D5W 750 MG/150 ML BAG IVPB SCH (10:04)
[2017-06-20 16:50] VITALS: BP 104/65; PULSE 86; RESP 18; TEMP 98; O2SAT 97
--- NOTE | 2017-06-20 17:53 | PN ---
ENDOCRINOLOGY FOLLOWUP NOTE DATE: LOCATION: Room #667. SUBJECTIVE: This is a 66-year-old male with recent uncontrolled type 2 insulin-requiring diabetes presenting here with marked hyperglycemic accelerations and dehydration and is now being followed closely for metabolic management. He has since then improved clinically and metabolically as noted thereof. His latest chemistries showed a BUN of 18, sodium 141, potassium 3.8, chloride 109, CO2 of 28, glucose 224 and creatinine 0.9. His glucose levels have ranged from 127-268 mg/dL. So at this time, we will continue the same basal and bolus insulin regimen to allow for dose equilibration and keep him on the Humalog given as 8 units subcu t.i.d. before meals as ordered. We will continue the low-dose correction scale using Humalog insulin as given. Moreover, we will continue the long-acting basal insulin given at 22 units subcu at bedtime daily as ordered. We will titrate incremental as indicated to optimize metabolic control. We will follow and advise accordingly. Tyesha Murdock MD
== END 2017-06-20 18:30 | disposition home health service (06) | DRG 871 ==
LOC: H.ER 15:12 → H.ERHOLD 19:15 → H.ICU/CCU 21:40 → H.MEDSURG1 06-17 11:17
PROVIDERS: ADMIT Family Medicine; ATTEND Family Medicine
DX: A41.9 Sepsis, unspecified organism (principal); J18.9 Pneumonia, unspecified organism; N17.9 Acute kidney failure, unspecified; E11.10 Type 2 diabetes mellitus with ketoacidosis without coma; E87.0 Hyperosmolality and hypernatremia; E86.0 Dehydration; J45.901 Unspecified asthma with (acute) exacerbation; E87.6 Hypokalemia; E11.65 Type 2 diabetes mellitus with hyperglycemia; I10 Essential (primary) hypertension; E78.5 Hyperlipidemia, unspecified; L27.0 Generalized skin eruption due to drugs and medicaments taken internally; T36.1X5A Adverse effect of cephalosporins and other beta-lactam antibiotics, initial encounter; Z79.4 Long term (current) use of insulin; Z91.19 Patient's noncompliance with other medical treatment and regimen; Z88.0 Allergy status to penicillin; Z87.891 Personal history of nicotine dependence; Z87.01 Personal history of pneumonia (recurrent); Z79.84 Long term (current) use of oral hypoglycemic drugs

== ENCOUNTER 2018-07-03 12:30 | Emergency (ER) | payer MEDICARE ==
[2018-07-03 12:30] VITALS: BMI 20.5
[2018-07-03 12:46] VITALS: TEMP 98
[2018-07-03] MEDS ORDERED: Albuterol-Ipratrop 3 mg / 0.5 (3 ml) UD IH STA ×2 (13:07→13:08)
--- NOTE | 2018-07-03 13:10 | ED PDOC ---
HPI: CCC, URI, Sore Throat Time Seen by Provider: 07/03/18 13:01 Chief Complaint (Nursing): Respiratory Distress History Per: Patient Onset/Duration Of Symptoms: Days (2) Associated Symptoms: Cough. denies: Fever, Sputum Severity: Moderate Additional Complaint(s): Non productive cough assoc with SOB and wheezing x 2 days. Temporary relief with nebs and inhaler. Denies fever. Past Medical History Vital Signs: Last Vital Signs Temp 98.0 F 07/03/18 12:43 Pulse 84 07/03/18 12:43 Resp 17 07/03/18 12:52 BP 124/81 07/03/18 12:43 Pulse Ox 97 07/03/18 12:43 - Medical History PMH: Asthma, Diabetes, HTN, Hypercholesterolemia, Pneumonia Denies: HIV, Chronic Kidney Disease - Family History Family History: States: Unknown Family Hx - Home Medications Home Medications: Ambulatory Orders Medication Instructions Recorded Albuterol 0.083% [Albuterol 0.083% 3 ml IH Q6H PRN #30 neb 03/18/16 Inhal Dary (2.5 mg/3 ml) UD] Atenolol/Chlorthalidone 1 tab PO DAILY 05/06/17 [Atenolol-Chlorthalidone 50-25] Pravastatin Sodium [Pravachol] 20 mg PO DAILY 05/06/17 Albuterol HFA [Ventolin HFA 90 2 puff IH [id number] PRN #1 bottle 05/07/17 mcg/actuation (8 g)] Fluticasone/Salmeterol [Advair 1 puff IH Q12H 06/01/17 250-50 Diskus] metFORMIN [glucOPHAGE] 500 mg PO DAILY 06/15/17 Insulin Detemir [Levemir] 20 units SC HS #1 vial 06/19/17 SITagliptin [Januvia] 100 mg PO DAILY #30 tab 06/19/17 Syring-Needl,Disp,Insul,0.3 ml 1 each MC HS #30 disp.syrin 06/19/17 [Caretouch Insulin Syringe] Levofloxacin [Levaquin] 500 mg PO DAILY #5 tablet 06/20/17 Azithromycin [Zithromax] 250 mg PO DAILY #6 tab 07/03/18 predniSONE [predniSONE Tab] 10 mg PO DAILY #4 tab 07/03/18 - Allergies Allergies/Adverse Reactions: Allergies Allergy/AdvReac Type Severity Reaction Status Date / Time ceftriaxone [From Rocephin] Allergy Severe RASH Verified 07/03/18 12:43 Penicillins Allergy RASH Verified 07/03/18 12:43 Review of Systems ROS Statement: Except As Marked, All Systems Reviewed And Found Negative Constitutional: Negative for: Fever ENT: Positive for: Throat Pain Respiratory: Positive for: Cough, Shortness of Breath, Wheezing Physical Exam - Reviewed Nursing Documentation Reviewed: Yes Vital Signs Reviewed: Yes - Physical Exam Appears: Positive for: Non-toxic, No Acute Distress Head Exam: Positive for: ATRAUMATIC, NORMAL INSPECTION, NORMOCEPHALIC Skin: Positive for: Normal Color, Warm, DRY Eye Exam: Positive for: EOMI, Normal appearance, PERRL ENT: Positive for: Normal ENT Inspection Neck: Positive for: Normal, Painless ROM Cardiovascular/Chest: Positive for: Regular Rate, Rhythm Respiratory: Positive for: Rhonchi, Wheezing. Negative for: Respiratory Distress Gastrointestinal/Abdominal: Positive for: Normal Exam, Soft Back: Positive for: Normal Inspection Extremity: Positive for: Normal ROM Neurologic/Psych: Positive for: Alert, Oriented - ECG O2 Sat by Pulse Oximetry: 97 - Progress Re-evaluation Time: 14:30 Condition: Improved Disposition - Clinical Impression Clinical Impression: Asthma exacerbation, Bronchitis - Patient ED Disposition Is Patient to be Admitted: No Counseled Patient/Family Regarding: Studies Performed, Diagnosis, Need For Followup, Rx Given - Disposition Referrals: [facility] [Outside] Disposition: Routine/Home Disposition Time: 14:32 Condition: FAIR Prescriptions: Azithromycin [Zithromax] 250 mg PO DAILY #6 tab predniSONE [predniSONE Tab] 10 mg PO DAILY #4 tab Instructions: Acute Bronchitis, Asthma in Adults Forms: [employer] (Khmer)
--- NOTE | 2018-07-03 13:46 | RAD ---
Date of service: 07/03/2018 HISTORY: cough COMPARISON: Chest radiograph dated 06/15/2017. TECHNIQUE: Chest PA and lateral FINDINGS: LUNGS: No active pulmonary disease. PLEURA: No significant pleural effusion identified. No pneumothorax apparent. CARDIOVASCULAR: Aortic atherosclerotic calcifications. Cardiomediastinal silhouette within normal limits. OSSEOUS STRUCTURES: Unchanged. VISUALIZED UPPER ABDOMEN: Normal. OTHER FINDINGS: None. IMPRESSION: No active disease.
[2018-07-03 14:43] VITALS: BP 119/74; PULSE 81; RESP 19; O2SAT 99
== END 2018-07-03 14:42 | disposition home or self-care (01) ==
LOC: H.ER 12:30
DX: R06.2 Wheezing (principal); J45.901 Unspecified asthma with (acute) exacerbation; J40 Bronchitis, not specified as acute or chronic; E11.9 Type 2 diabetes mellitus without complications; E78.00 Pure hypercholesterolemia, unspecified; I10 Essential (primary) hypertension; Z79.4 Long term (current) use of insulin; Z88.0 Allergy status to penicillin

== ENCOUNTER 2018-07-05 22:36 | Emergency (ER) | payer MEDICARE, MEDICAID ==
[2018-07-05 22:36] VITALS: BMI 20.5
[2018-07-05] MEDS ORDERED: Albuterol-Ipratrop 3 mg / 0.5 (3 ml) UD INH STA (23:12)
[2018-07-05] MEDS ORDERED: Albuterol-Ipratrop 3 mg / 0.5 (3 ml) UD INH ONE ×2 (23:30)
[2018-07-06] MEDS ORDERED: Albuterol-Ipratrop 3 mg / 0.5 (3 ml) UD ONE (00:21)
--- NOTE | 2018-07-06 00:40 | ED PDOC ---
HPI: SOB/CHF/COPD Time Seen by Provider: 07/05/18 23:11 Chief Complaint (Nursing): Shortness Of Breath Chief Complaint (Provider): Shortness Of Breath History Per: Patient History/Exam Limitations: no limitations Onset/Duration Of Symptoms: Days (x3) Current Symptoms Are (Timing): Still Present Additional Complaint(s): 67 year old male, well-known to provider for multiple ED visits relating to asthma, presents with dry cough and shortness of breath for 3 days. Patient states worsening symptoms despite compliance with nebulizer and albuterol treatments. She denies any fever or chills. PMD: Dr. Chas Rivero Past Medical History Reviewed: Historical Data, Nursing Documentation, Vital Signs Vital Signs: Last Vital Signs Temp 98.1 F 07/05/18 22:48 Pulse 75 07/05/18 22:48 Resp 16 07/05/18 22:48 BP 112/77 07/05/18 22:48 Pulse Ox 98 07/05/18 22:48 - Medical History PMH: Asthma, Diabetes, HTN, Hypercholesterolemia, Pneumonia Denies: HIV, Chronic Kidney Disease - Family History Family History: States: Unknown Family Hx - Home Medications Home Medications: Ambulatory Orders Medication Instructions Recorded Albuterol 0.083% [Albuterol 0.083% 3 ml IH Q6H PRN #30 neb 03/18/16 Inhal Dary (2.5 mg/3 ml) UD] Atenolol/Chlorthalidone 1 tab PO DAILY 05/06/17 [Atenolol-Chlorthalidone 50-25] Pravastatin Sodium [Pravachol] 20 mg PO DAILY 05/06/17 Albuterol HFA [Ventolin HFA 90 2 puff IH [id number] PRN #1 bottle 05/07/17 mcg/actuation (8 g)] Fluticasone/Salmeterol [Advair 1 puff IH Q12H 06/01/17 250-50 Diskus] metFORMIN [glucOPHAGE] 500 mg PO DAILY 06/15/17 Insulin Detemir [Levemir] 20 units SC HS #1 vial 06/19/17 SITagliptin [Januvia] 100 mg PO DAILY #30 tab 06/19/17 Syring-Needl,Disp,Insul,0.3 ml 1 each HS #30 disp.syrin 06/19/17 [Caretouch Insulin Syringe] Levofloxacin [Levaquin] 500 mg PO DAILY #5 tablet 06/20/17 Azithromycin [Zithromax] 250 mg PO DAILY #6 tab 07/03/18 predniSONE [predniSONE Tab] 10 mg PO DAILY #4 tab 07/03/18 Albuterol 0.5% [Albuterol 0.5% 2.5 mg IH Q6 PRN #1 packet 07/06/18 Inhal Dary (2.5 mg/0.5 ml) UD] - Allergies Allergies/Adverse Reactions: Allergies Allergy/AdvReac Type Severity Reaction Status Date / Time ceftriaxone [From Rocephin] Allergy Severe RASH Verified 07/05/18 22:48 Penicillins Allergy RASH Verified 07/05/18 22:48 Review of Systems ROS Statement: Except As Marked, All Systems Reviewed And Found Negative Constitutional: Negative for: Fever, Chills Respiratory: Positive for: Cough (dry), Shortness of Breath Physical Exam - Reviewed Nursing Documentation Reviewed: Yes Vital Signs Reviewed: Yes - Physical Exam Appears: Positive for: Non-toxic, No Acute Distress Head Exam: Positive for: ATRAUMATIC, NORMAL INSPECTION, NORMOCEPHALIC Skin: Positive for: Normal Color Eye Exam: Positive for: Normal appearance ENT: Positive for: Normal ENT Inspection Neck: Positive for: Normal Cardiovascular/Chest: Positive for: Regular Rate, Rhythm Respiratory: Positive for: Wheezing (expiratory bilaterally). Negative for: Respiratory Distress Gastrointestinal/Abdominal: Positive for: Normal Exam, Soft. Negative for: Tenderness Extremity: Positive for: Normal ROM (upper/lower) Neurologic/Psych: Positive for: Alert, Oriented. Negative for: Motor/Sensory Deficits - Laboratory Results Result Diagrams: 07/06/18 01:15 07/06/18 01:15 - ECG O2 Sat by Pulse Oximetry: 98 (RA) Pulse Ox Interpretation: Normal - Critical Care Total Time (In Min): 30 Documented Critical Care: Time excludes all time spent performint seperately billable procedures Medical Decision Making Medical Decision Making: Initial Impression: 67 year old male with wheezing in setting of known asthma. Initial Plan: * EKG * Labs * Duoneb 3ml INH * Solu-Medrol 125mg IVP Time: 0350 --Labs reviewed: no significant clinical abnormality. Normal EKG. Upon provider reevaluation, patient reports significant improvement in symptoms. Patient was o [facility] observation due to his 2nd visit within 3 days for similar symptoms, however, patient declines as he states he "feels well". Patient will be discharged home with Rx for Albuterol. Counseling was provided and all questions were answered regarding diagnosis. There is agreement to discharge plan. Return if symptoms persist or worsen. Clinical Impression: Asthma exacerbation Scribe Attestation: Documented by Tyesha Calvin, acting as a scribe for Alvaro Donaldson MD. Provider Scribe Attestation: All medical record entries made by the Scribe were at my direction and personally dictated by me. I have reviewed the chart and agree that the record accurately reflects my personal performance of the history, physical exam, medical decision making, and the department course for this patient. I have also personally directed, reviewed, and agree with the discharge instructions and disposition. Disposition - Clinical Impression Clinical Impression: Asthma exacerbation - Patient ED Disposition Is Patient to be Admitted: No Counseled Patient/Family Regarding: Studies Performed, Diagnosis, Need For Followup, Rx Given - Disposition Disposition: Routine/Home Disposition Time: 03:50 Condition: STABLE Prescriptions: Albuterol 0.5% [Albuterol 0.5% Inhal Dary (2.5 mg/0.5 ml) UD] 2.5 mg IH Q6 PRN #1 packet PRN Reason: Shortness Of Breath Instructions: Asthma in Adults Forms: [employer] (Indonesian)
[2018-07-06] MEDS ORDERED: Magnesium Sulfate 2 gm/50 ml 2 GM/50 ML BAG IV STA (00:52)
[2018-07-06] MEDS ORDERED: Magnesium Sulfate 2 gm/50 ml 2 GM/50 ML BAG ONE (01:01)
[2018-07-06 01:15] VITALS: RESP 18
[2018-07-06 01:30] LABS: BASO # 0.1 K/uL (0.0-0.2); BASO % 1.4 % (0.0-2.0); EOS # 0.1 K/uL (0.0-0.7); EOS % 1.2 % (0.0-4.0); HEMOGLOBIN 14.3 g/dL (12.0-18.0); LYMPH # 1.3 K/uL (1.0-4.3); LYMPH % 14.7 % (20.0-40.0); MEAN CELL VOLUME 82.1 fl (80.0-94.0); MEAN CORPUSCULAR HEMOGLOBIN 26.6 pg (27.0-31.0); MEAN CORPUSCULAR HGB CONC 32.4 g/dL (33.0-37.0); MEAN PLATELET VOLUME 10.5 fl (7.2-11.7); MONO # 0.6 K/uL (0.0-0.8); MONO % 6.7 % (0.0-10.0); NEUT # 6.6 K/uL (1.8-7.0); NRBC % 0.1 % (0.0-0.0); RBC 5.37 Mil/uL (4.40-5.90); RED CELL DISTRIBUTION WIDTH 14.6 % (11.5-14.5); WHITE BLOOD COUNT 8.6 K/uL (4.8-10.8)
[2018-07-06 01:47] LABS: ALBUMIN 4.1 g/dL (3.5-5.0); ALT/SGPT 16 U/L (21-72); AST/SGOT 29 U/L (17-59); BLOOD UREA NITROGEN 41 mg/dl (9-20); CALCIUM 9.5 mg/dL (8.4-10.2); GFR NON-AFRICAN AMERICAN 51
[2018-07-06 04:47] VITALS: BP 122/81; PULSE 78; TEMP 98.3; O2SAT 99
--- NOTE | 2018-07-06 08:43 | CARD ---
APPROVED REPORT Date of service: 07/05/2018 EKG Measurement Heart [id number] [id number] <Conclusion> Normal sinus rhythm Normal ECG
== END 2018-07-06 04:47 | disposition home or self-care (01) ==
LOC: H.ER 22:36
DX: J45.901 Unspecified asthma with (acute) exacerbation (principal); E11.9 Type 2 diabetes mellitus without complications; E78.00 Pure hypercholesterolemia, unspecified; I10 Essential (primary) hypertension; Z79.4 Long term (current) use of insulin; Z88.0 Allergy status to penicillin
CPT/HCPCS: 80053; 85025; 93005; 94640; 96374; 96375; 99284; J2930

== ENCOUNTER 2018-07-09 14:20 | Emergency (ER) | payer MEDICARE, MEDICAID ==
[2018-07-09 14:20] VITALS: BMI 20.5
--- NOTE | 2018-07-09 15:06 | ED PDOC ---
HPI: SOB/CHF/COPD Time Seen by Provider: 07/09/18 14:47 Chief Complaint (Nursing): Shortness Of Breath Chief Complaint (Provider): Shortness Of Breath History Per: Patient History/Exam Limitations: no limitations Onset/Duration Of Symptoms: Worse Since (x3 days) Current Symptoms Are (Timing): Still Present Additional Complaint(s): 67 year old male with pmHx of asthma, DM, and HTN, presents to ED for an evaluation of shortness of breath, wheezing, and cough for 4 days. He was seen in ED on 07/06/18 for similar complaints but did not take medication for relief. He denies any fever, chills, nasal congestion, or runny nose. PCP: Dr. Chas Rivero Past Medical History Reviewed: Historical Data, Nursing Documentation, Vital Signs Vital Signs: Last Vital Signs Temp 98.5 F 07/09/18 14:40 Pulse 73 07/09/18 14:40 Resp 18 07/09/18 14:40 BP 132/83 07/09/18 14:40 Pulse Ox 95 07/09/18 14:40 - Medical History PMH: Asthma, Diabetes, HTN, Hypercholesterolemia, Pneumonia Denies: HIV, Chronic Kidney Disease - Family History Family History: States: Unknown Family Hx - Home Medications Home Medications: Ambulatory Orders Medication Instructions Recorded Albuterol 0.083% [Albuterol 0.083% 3 ml IH Q6H PRN #30 neb 03/18/16 Inhal Dary (2.5 mg/3 ml) UD] Atenolol/Chlorthalidone 1 tab PO DAILY 05/06/17 [Atenolol-Chlorthalidone 50-25] Pravastatin Sodium [Pravachol] 20 mg PO DAILY 05/06/17 Albuterol HFA [Ventolin HFA 90 2 puff IH [id number] PRN #1 bottle 05/07/17 mcg/actuation (8 g)] Fluticasone/Salmeterol [Advair 1 puff IH Q12H 06/01/17 250-50 Diskus] metFORMIN [glucOPHAGE] 500 mg PO DAILY 06/15/17 Insulin Detemir [Levemir] 20 units SC HS #1 vial 06/19/17 SITagliptin [Januvia] 100 mg PO DAILY #30 tab 06/19/17 Syring-Needl,Disp,Insul,0.3 ml 1 each HS #30 disp.syrin 06/19/17 [Caretouch Insulin Syringe] Levofloxacin [Levaquin] 500 mg PO DAILY #5 tablet 06/20/17 Azithromycin [Zithromax] 250 mg PO DAILY #6 tab 07/03/18 predniSONE [predniSONE Tab] 10 mg PO DAILY #4 tab 07/03/18 Albuterol 0.5% [Albuterol 0.5% 2.5 mg IH Q6 PRN #1 packet 07/06/18 Inhal Dary (2.5 mg/0.5 ml) UD] Albuterol Sulfate [Proair Hfa] 0.09 mg IH Q6H PRN #2 inh 07/09/18 predniSONE [predniSONE Tab] 20 mg PO BID 5 Days tab 07/09/18 - Allergies Allergies/Adverse Reactions: Allergies Allergy/AdvReac Type Severity Reaction Status Date / Time ceftriaxone [From Rocephin] Allergy Severe RASH Verified 07/09/18 14:39 Penicillins Allergy RASH Verified 07/09/18 14:39 Review of Systems ROS Statement: Except As Marked, All Systems Reviewed And Found Negative Constitutional: Negative for: Fever, Chills ENT: Negative for: Nose Discharge, Nose Congestion Respiratory: Positive for: Cough, Shortness of Breath, Wheezing Physical Exam - Reviewed Nursing Documentation Reviewed: Yes Vital Signs Reviewed: Yes - Physical Exam Appears: Positive for: No Acute Distress Head Exam: Positive for: ATRAUMATIC, NORMAL INSPECTION, NORMOCEPHALIC Skin: Positive for: Normal Color Eye Exam: Positive for: Normal appearance ENT: Positive for: Normal ENT Inspection Neck: Positive for: Normal Cardiovascular/Chest: Positive for: Regular Rate, Rhythm, Chest Non Tender Respiratory: Positive for: Decreased Breath Sounds, Wheezing (diffuse bilaterally). Negative for: Accessory Muscle Use, Respiratory Distress Neurologic/Psych: Positive for: Alert, Oriented - ECG ECG: Positive for: Interpreted By Me, Viewed By Me ECG Rhythm: Positive for: Normal QRS, Normal ST Segment, Sinus Rhythm O2 Sat by Pulse Oximetry: 95 (RA) Pulse Ox Interpretation: Normal - Progress ED Course And Treament: 1711: Stable. AAOx3. Tolerated PO. Fu with pcp. No dyspnea. No wheezes. Medical Decision Making Medical Decision Making: Time: 1505 Initial Plan: * EKG * Duoneb 3ml INH * Solu-medrol 125mg IM Scribe Attestation: Documented by Tyesha Calvin, acting as a scribe for Rex Sarmiento MD. Provider Scribe Attestation: All medical record entries made by the Scribe were at my direction and personally dictated by me. I have reviewed the chart and agree that the record accurately reflects my personal performance of the history, physical exam, medical decision making, and the department course for this patient. I have also personally directed, reviewed, and agree with the discharge instructions and disposition. Disposition - Clinical Impression Clinical Impression: Asthma exacerbation - Patient ED Disposition Is Patient to be Admitted: No Counseled Patient/Family Regarding: Diagnosis, Need For Followup, Rx Given - Disposition Referrals: [facility] [Outside] - 07/10/18 Disposition: Routine/Home Disposition Time: 17:12 Condition: STABLE Additional Instructions: Return if not better in 3 days. Prescriptions: Albuterol Sulfate [Proair Hfa] 0.09 mg IH Q6H PRN #2 inh PRN Reason: Wheezing predniSONE [predniSONE Tab] 20 mg PO BID 5 Days tab Instructions: Asthma in Adults Print Language: SYRIAC
[2018-07-09] MEDS ORDERED: Albuterol 0.083% Inhal Sol (2.5 mg/3 mL) UD ONE (15:27)
[2018-07-09] MEDS: Albuterol-Ipratrop 3 mg / 0.5 (3 ml) UD IH STA ×3 (15:36→17:33)
[2018-07-09] MEDS ORDERED: Albuterol-Ipratrop 3 mg / 0.5 (3 ml) UD ONE ×2 (15:37→17:30)
[2018-07-09] MEDS: Albuterol-Ipratrop 3 mg / 0.5 (3 ml) UD INH STA (15:47)
[2018-07-09 18:30] VITALS: BP 120/78; PULSE 88; RESP 22; TEMP 98; O2SAT 98
--- NOTE | 2018-07-10 08:48 | CARD ---
APPROVED REPORT Date of service: 07/09/2018 EKG Measurement Heart [id number] 140P75 [id number] <Conclusion> Normal sinus rhythm Normal ECG
== END 2018-07-09 18:30 | disposition home or self-care (01) ==
LOC: H.ER 14:20
DX: J45.901 Unspecified asthma with (acute) exacerbation (principal)
CPT/HCPCS: 82948; 93005; 94640; 96372; 99284; J2930

== ENCOUNTER 2018-07-21 17:53 | Emergency (ER) | payer MEDICARE, MEDICAID ==
[2018-07-21 17:53] VITALS: BMI 20.5
[2018-07-21 18:08] VITALS: TEMP 97.8
[2018-07-21] MEDS ORDERED: Albuterol-Ipratrop 3 mg / 0.5 (3 ml) UD INH STA ×3 (18:33→18:52)
[2018-07-21] MEDS ORDERED: Albuterol-Ipratrop 3 mg / 0.5 (3 ml) UD ONE ×2 (18:51→20:58)
[2018-07-21 18:56] LABS: BASO # 0.1 K/uL (0.0-0.2); BASO % 0.4 % (0.0-2.0); EOS # 0.8 K/uL (0.0-0.7); EOS % 5.7 % (0.0-4.0); HEMOGLOBIN 14.9 g/dL (12.0-18.0); LYMPH # 3.3 K/uL (1.0-4.3); LYMPH % 24.1 % (20.0-40.0); MEAN CELL VOLUME 81.7 fl (80.0-94.0); MEAN CORPUSCULAR HEMOGLOBIN 26.3 pg (27.0-31.0); MEAN CORPUSCULAR HGB CONC 32.2 g/dL (33.0-37.0); MEAN PLATELET VOLUME 10.5 fl (7.2-11.7); MONO # 1.3 K/uL (0.0-0.8); MONO % 9.2 % (0.0-10.0); NEUT # 8.4 K/uL (1.8-7.0); NEUT % 60.6 % (50.0-75.0); NRBC % 0.1 % (0.0-0.0); RBC 5.67 Mil/uL (4.40-5.90); RED CELL DISTRIBUTION WIDTH 14.9 % (11.5-14.5); WHITE BLOOD COUNT 13.8 K/uL (4.8-10.8)
[2018-07-21 19:15] LABS: B-TYPE NATRIURETIC PEPTIDE 75.5 pg/ml (0-900)
[2018-07-21 19:18] LABS: ALB/GLOB RATIO 1.2 (1.0-2.1); ALT/SGPT 38 U/L (21-72); AST/SGOT 26 U/L (17-59); BLOOD UREA NITROGEN 30 mg/dl (9-20); CALCIUM 9.5 mg/dL (8.4-10.2); GFR NON-AFRICAN AMERICAN 51
--- NOTE | 2018-07-21 19:46 | ED PDOC ---
HPI: SOB/CHF/COPD Time Seen by Provider: 07/21/18 18:20 Chief Complaint (Nursing): Shortness Of Breath Chief Complaint (Provider): asthma History Per: Patient History/Exam Limitations: no limitations Onset/Duration Of Symptoms: Days (2) Current Symptoms Are (Timing): Still Present Quality: Tightness Associated Symptoms: denies: Fever, Chills, Productive Cough Additional History Per: Patient Additional Complaint(s): Pt. is a 67 y/o Male with a history of asthma who reports increased cough, w heezing and SOB since last night. Pt. reports h/o ashtma, has an albuterol MDI which he's been using which provides temporary relief (only about 1 hr). Pt. reports similar exacerbations in past, usually improve with inhaler. Pt. denies any h/o COPD, CHF. He endorse chest tightness which is worse when he coughs and improves with inhaler. - Risk Factors PE Risk Factors: Neg: Extremity Immobilization/Fx, Decreased Mobilty /Activity, Recent Major Surgery, CHF, Venous Stasis Past Medical History Reviewed: Historical Data, Nursing Documentation, Vital Signs Vital Signs: Last Vital Signs Temp 97.8 F 07/21/18 18:05 Pulse 71 07/21/18 18:05 Resp 18 07/21/18 18:30 BP 137/79 07/21/18 18:05 Pulse Ox 95 07/21/18 18:30 - Medical History PMH: Asthma, Diabetes, HTN, Hypercholesterolemia, Pneumonia Denies: HIV, Chronic Kidney Disease - Family History Family History: States: Unknown Family Hx - Home Medications Home Medications: Ambulatory Orders Medication Instructions Recorded Albuterol 0.083% [Albuterol 0.083% 3 ml IH Q6H PRN #30 neb 03/18/16 Inhal Dary (2.5 mg/3 ml) UD] Atenolol/Chlorthalidone 1 tab PO DAILY 05/06/17 [Atenolol-Chlorthalidone 50-25] Pravastatin Sodium [Pravachol] 20 mg PO DAILY 05/06/17 Albuterol HFA [Ventolin HFA 90 2 puff IH [id number] PRN #1 bottle 05/07/17 mcg/actuation (8 g)] Fluticasone/Salmeterol [Advair 1 puff IH Q12H 06/01/17 250-50 Diskus] metFORMIN [glucOPHAGE] 500 mg PO DAILY 06/15/17 Insulin Detemir [Levemir] 20 units SC HS #1 vial 06/19/17 SITagliptin [Januvia] 100 mg PO DAILY #30 tab 06/19/17 Syring-Needl,Disp,Insul,0.3 ml 1 each MC HS #30 disp.syrin 06/19/17 [Caretouch Insulin Syringe] Levofloxacin [Levaquin] 500 mg PO DAILY #5 tablet 06/20/17 Azithromycin [Zithromax] 250 mg PO DAILY #6 tab 07/03/18 predniSONE [predniSONE Tab] 10 mg PO DAILY #4 tab 07/03/18 Albuterol 0.5% [Albuterol 0.5% 2.5 mg IH Q6 PRN #1 packet 07/06/18 Inhal Dary (2.5 mg/0.5 ml) UD] Albuterol Sulfate [Proair Hfa] 0.09 mg IH Q6H PRN #2 inh 07/09/18 predniSONE [predniSONE Tab] 20 mg PO BID 5 Days tab 07/09/18 - Allergies Allergies/Adverse Reactions: Allergies Allergy/AdvReac Type Severity Reaction Status Date / Time ceftriaxone [From Rocephin] Allergy Severe RASH Verified 07/09/18 14:39 Penicillins Allergy RASH Verified 07/09/18 14:39 Review of Systems Constitutional: Negative for: Fever, Chills, Weight loss Cardiovascular: Negative for: Palpitations, Orthopnea, Paroxysmal Noc. Dyspnea, Edema Respiratory: Positive for: Cough, Shortness of Breath, Wheezing Physical Exam - Reviewed Nursing Documentation Reviewed: Yes Vital Signs Reviewed: Yes - Physical Exam Appears: Positive for: Well, Non-toxic Head Exam: Positive for: ATRAUMATIC Skin: Positive for: Normal Color, Warm, Dry Neck: Positive for: Normal, Trachea Midline Cardiovascular/Chest: Positive for: Regular Rate, Rhythm. Negative for: Edema, Murmur Respiratory: Positive for: Decreased Breath Sounds, Wheezing (diffuse bilateral expiratory wheezes) Gastrointestinal/Abdominal: Positive for: Normal Exam Extremity: Negative for: Pedal Edema, Calf Tenderness, Swelling Neurologic/Psych: Positive for: Alert, Oriented - Laboratory Results Result Diagrams: 07/21/18 18:52 07/21/18 18:52 - ECG O2 Sat by Pulse Oximetry: 95 Nebulizer Treatments/Peak Flow - Duonebs Number of Bronchodilator Doses given?: 3 - Steroid Treatment Steroid: IV (solumedrol) - Clinical Response Clinical Response: Improved Medical Decision Making Medical Decision Making: IV access established. labs sent. Duonebs x 3 IV solumedrol given CXR ordered. CXR: napd; as read by me. On reassessment, pt. reports feeling better. Re-exam, minimal wheeze. Pulse ox: 99% on RA, no accessory muscle use. Will continue to observe. Disposition - Clinical Impression Clinical Impression: Asthma attack - Patient ED Disposition Is Patient to be Admitted: Transfer of Care Counseled Patient/Family Regarding: Studies Performed, Diagnosis, Need For Followup - Disposition Disposition: Transfer of Care (to ROBBY Enciso, pending reassessment) Disposition Time: 20:25 Condition: IMPROVED Forms: [facility] (Greek)
--- NOTE | 2018-07-21 20:38 | ED PDOC ---
- Laboratory Results Result Diagrams: 07/21/18 18:52 07/21/18 18:52 - ECG O2 Sat by Pulse Oximetry: 95 Medical Decision Making Medical Decision Making: Patient endorsed to me by ROBBY Lopez @ 8:30pm pending re-evaluation after treatment for asthma exacerbation. 20:45: Pt re-evaluated. States that he is feeling much better but feel the itch in his throat that he sometimes gets when he has asthma. Pt re-examined. Lungs: occasional expiratory wheeze, otherwise CTA B/L. DuoNeb 3mL x 1 ordered. 21:30: Re-assessed, feeling better, lungs still w/ minimal occasional wheeze B/L, O2 sat stable. Stable for d/c home with return instructions given. Disposition Counseled Patient/Family Regarding: Diagnosis, Need For Followup, Rx Given - Clinical Impression Clinical Impression: Asthma attack - POA Present On Arrival: None - Disposition Referrals: Chas Rivero MD [Family Provider] - Disposition: Routine/Home Disposition Time: 22:20 Condition: STABLE Additional Instructions: F/u with your primary care doctor tomorrow. Return to ER if you develop worsening shortness of breath. Prescriptions: Albuterol 0.083% [Albuterol Sulfate 3 Ml] 3 ml IH Q6H PRN 7 Days neb PRN Reason: Shortness Of Breath Prednisone 50 mg PO DAILY 4 Days tablet Instructions: Asthma, Adult (DC) Forms: [employer] (Martiniquais) Print Language: KAZAKH
[2018-07-21] MEDS ORDERED: Albuterol-Ipratrop 3 mg / 0.5 (3 ml) UD INH ONE (21:18)
[2018-07-21 22:15] VITALS: BP 120/87; PULSE 88; RESP 21
[2018-07-22 01:49] VITALS: O2SAT 95
--- NOTE | 2018-07-22 08:14 | RAD ---
Date of service: 07/21/2018 HISTORY: cough COMPARISON: Chest radiographs 07/03/2018. TECHNIQUE: Chest PA and lateral FINDINGS: LUNGS: No active pulmonary disease. PLEURA: No significant pleural effusion identified. No pneumothorax apparent. CARDIOVASCULAR: No aortic atherosclerotic calcification present. Normal cardiac size. No pulmonary vascular congestion. OSSEOUS STRUCTURES: Dextroscoliotic thoracolumbar spinal deformity reiterated. VISUALIZED UPPER ABDOMEN: Normal. OTHER FINDINGS: None. IMPRESSION: No interval acute cardiopulmonary disease appreciated.
[2018-07-22] MEDS ORDERED: Albuterol-Ipratrop 3 mg / 0.5 (3 ml) UD INH ONE (20:53)
[2018-07-27] MEDS ORDERED: methylPREDNISolone 125 MG in Sodium Chloride 0.9% 50 ML IV SCH (09:00)
== END 2018-07-21 22:20 | disposition home or self-care (01) ==
LOC: H.ER 17:53
DX: J45.909 Unspecified asthma, uncomplicated (principal); E11.9 Type 2 diabetes mellitus without complications; E78.00 Pure hypercholesterolemia, unspecified; I10 Essential (primary) hypertension; Z79.4 Long term (current) use of insulin; Z88.0 Allergy status to penicillin
CPT/HCPCS: 71046; 80053; 83880; 85025; 94150; 94640; 96374; 99284; J2930

== ENCOUNTER 2018-09-17 16:58 | Emergency (ER) | payer MEDICARE, MEDICAID ==
[2018-09-17 16:59] VITALS: BMI 25.9
[2018-09-17 17:09] VITALS: RESP 16; TEMP 97.1
[2018-09-17] MEDS ORDERED: Albuterol-Ipratrop 3 mg / 0.5 (3 ml) UD INH STA (17:33)
[2018-09-17] MEDS ORDERED: Albuterol-Ipratrop 3 mg / 0.5 (3 ml) UD IH STA ×2 (17:33)
--- NOTE | 2018-09-17 17:41 | ED PDOC ---
HPI: SOB/CHF/COPD Time Seen by Provider: 09/17/18 17:28 Chief Complaint (Nursing): Shortness Of Breath Chief Complaint (Provider): Wheezes History Per: Patient History/Exam Limitations: no limitations Onset/Duration Of Symptoms: Days (today) Additional Complaint(s): Pt. with cough, congestion, runny nose, dyspnea. Tried inhaler, but only helps for 30 min. Feels like his asthma. No chest pain, fever, headaches, abd pain. Past Medical History Vital Signs: Last Vital Signs Temp 97.1 F L 09/17/18 17:05 Pulse 86 09/17/18 17:05 Resp 16 09/17/18 17:05 BP 108/76 09/17/18 17:05 Pulse Ox 95 09/17/18 17:05 - Medical History PMH: Asthma, Diabetes, HTN, Hypercholesterolemia, Pneumonia Denies: HIV, Chronic Kidney Disease - Surgical History Surgical History: No Surg Hx - Family History Family History: States: Unknown Family Hx - Home Medications Home Medications: Ambulatory Orders Medication Instructions Recorded Albuterol 0.083% [Albuterol 0.083% 3 ml IH Q6H PRN #30 neb 03/18/16 Inhal Dary (2.5 mg/3 ml) UD] Atenolol/Chlorthalidone 1 tab PO DAILY 05/06/17 [Atenolol-Chlorthalidone 50-25] Pravastatin Sodium [Pravachol] 20 mg PO DAILY 05/06/17 metFORMIN [glucOPHAGE] 500 mg PO DAILY 06/15/17 SITagliptin [Januvia] 100 mg PO DAILY #30 tab 06/19/17 Albuterol 0.083% [Albuterol 0.083% 2.5 mg IH Q6 PRN #1 neb 08/03/18 Inhal Dary (2.5 mg/3 ml) UD] Azithromycin [Zithromax] 250 mg PO DAILY #6 tab 08/03/18 Dulera 100 Mcg/5 Mcg Inhaler 08/03/18 predniSONE [Prednisone] 40 mg PO DAILY #10 tab 08/03/18 Albuterol 0.083% [Albuterol 0.083% 2.5 mg NEB TID PRN 10 Days neb 09/17/18 Inhal Dary (2.5 mg/3 ml) UD] Albuterol Sulfate [Proair Hfa] 0.09 mg IH Q6H PRN #2 inh 09/17/18 predniSONE [predniSONE Tab] 20 mg PO BID 5 Days tab 09/17/18 - Allergies Allergies/Adverse Reactions: Allergies Allergy/AdvReac Type Severity Reaction Status Date / Time ceftriaxone [From Rocephin] Allergy Severe RASH Verified 09/17/18 17:05 Penicillins Allergy RASH Verified 09/17/18 17:05 Review of Systems ROS Statement: Except As Marked, All Systems Reviewed And Found Negative ENT: Positive for: Nose Pain, Nose Congestion Respiratory: Positive for: Cough, Shortness of Breath, Wheezing Physical Exam - Reviewed Nursing Documentation Reviewed: Yes Vital Signs Reviewed: Yes - Physical Exam Appears: Positive for: Non-toxic, No Acute Distress Head Exam: Positive for: ATRAUMATIC, NORMAL INSPECTION, NORMOCEPHALIC Skin: Positive for: Normal Color, Warm, DRY Eye Exam: Positive for: EOMI, Normal appearance, PERRL ENT: Positive for: Nasal Congestion Neck: Positive for: Normal, Painless ROM, Supple Cardiovascular/Chest: Positive for: Regular Rate, Rhythm Respiratory: Positive for: Decreased Breath Sounds, Wheezing (b/l) Gastrointestinal/Abdominal: Positive for: Normal Exam, Soft. Negative for: Tenderness Back: Positive for: Normal Inspection. Negative for: L CVA Tenderness, R CVA Tenderness Extremity: Positive for: Normal ROM. Negative for: Tenderness, Pedal Edema Neurologic/Psych: Positive for: Alert, Oriented - ECG ECG: Positive for: Interpreted By Me, Viewed By Me ECG Rhythm: Positive for: Normal QRS, Normal ST Segment, Sinus Rhythm O2 Sat by Pulse Oximetry: 95 Pulse Ox Interpretation: Normal - Progress ED Course And Treament: 1827: Stable. Feels much better. Breathing well. AAOx3. Fu with pcp. Disposition - Clinical Impression Clinical Impression: Asthma exacerbation - Patient ED Disposition Is Patient to be Admitted: No - Disposition Referrals: [facility] [Outside] - 09/18/18 Disposition: Routine/Home Disposition Time: 18:33 Condition: STABLE Additional Instructions: Return if not better in 3 days. Prescriptions: Albuterol 0.083% [Albuterol 0.083% Inhal Dary (2.5 mg/3 ml) UD] 2.5 mg NEB TID PRN 10 Days neb PRN Reason: Wheezing Albuterol Sulfate [Proair Hfa] 0.09 mg IH Q6H PRN #2 inh PRN Reason: Wheezing predniSONE [predniSONE Tab] 20 mg PO BID 5 Days tab Instructions: Asthma in Adults
[2018-09-17] MEDS ORDERED: Albuterol-Ipratrop 3 mg / 0.5 (3 ml) UD ONE (17:43)
[2018-09-17 19:29] VITALS: BP 124/77; PULSE 76; O2SAT 98
--- NOTE | 2018-09-18 10:25 | CARD ---
APPROVED REPORT Date of service: 09/17/2018 EKG Measurement Heart [id number] <Conclusion> Normal sinus rhythm Normal ECG
== END 2018-09-17 18:34 | disposition home or self-care (01) ==
LOC: H.ER 16:58
DX: J45.901 Unspecified asthma with (acute) exacerbation (principal)

== ENCOUNTER 2018-11-01 19:55 | Emergency (ER) | payer OTHER ==
[2018-11-01 19:55] VITALS: BMI 25.9
[2018-11-01] MEDS ORDERED: Albuterol-Ipratrop 3 mg / 0.5 (3 ml) UD INH STA (20:19)
--- NOTE | 2018-11-01 20:22 | ED PDOC ---
HPI: SOB/CHF/COPD Time Seen by Provider: 11/01/18 20:13 Chief Complaint (Nursing): Respiratory Distress Chief Complaint (Provider): Asthma Exacerbation Onset/Duration Of Symptoms: Days (two days) Initiating Event: Out Of Medications Current Respiratory Medications: Albuterol Severity: Mild Past Medical History Reviewed: Historical Data, Nursing Documentation, Vital Signs Vital Signs: Last Vital Signs Temp 98.2 F 11/01/18 20:00 Pulse 75 11/01/18 20:00 Resp 16 11/01/18 20:00 BP 120/87 11/01/18 20:00 Pulse Ox 96 11/01/18 20:00 - Medical History PMH: Asthma, Diabetes, HTN, Hypercholesterolemia, Pneumonia Denies: HIV, Chronic Kidney Disease - Family History Family History: States: Unknown Family Hx - Home Medications Home Medications: Ambulatory Orders Medication Instructions Recorded Albuterol 0.083% [Albuterol 0.083% 3 ml IH Q6H PRN #30 neb 03/18/16 Inhal Dary (2.5 mg/3 ml) UD] Atenolol/Chlorthalidone 1 tab PO DAILY 05/06/17 [Atenolol-Chlorthalidone 50-25] Pravastatin Sodium [Pravachol] 20 mg PO DAILY 05/06/17 metFORMIN [glucOPHAGE] 500 mg PO DAILY 06/15/17 SITagliptin [Januvia] 100 mg PO DAILY #30 tab 06/19/17 Albuterol 0.083% [Albuterol 0.083% 2.5 mg IH Q6 PRN #1 neb 08/03/18 Inhal Dary (2.5 mg/3 ml) UD] Azithromycin [Zithromax] 250 mg PO DAILY #6 tab 08/03/18 Dulera 100 Mcg/5 Mcg Inhaler 08/03/18 predniSONE [Prednisone] 40 mg PO DAILY #10 tab 08/03/18 Albuterol 0.083% [Albuterol 0.083% 2.5 mg NEB TID PRN 10 Days neb 09/17/18 Inhal Dary (2.5 mg/3 ml) UD] Albuterol Sulfate [Proair Hfa] 0.09 mg IH Q6H PRN #2 inh 09/17/18 predniSONE [predniSONE Tab] 20 mg PO BID 5 Days tab 09/17/18 Albuterol/Ipratropium [Duoneb 3 1 ea IH TID PRN #30 neb 11/02/18 MG/3 Ml-0.5 MG/3 Ml 3 Ml] Nebulizer [Aeroeclipse II] 1 each MC TID PRN #1 each 11/02/18 - Allergies Allergies/Adverse Reactions: Allergies Allergy/AdvReac Type Severity Reaction Status Date / Time ceftriaxone [From Rocephin] Allergy Severe RASH Verified 11/01/18 19:59 Penicillins Allergy RASH Verified 11/01/18 19:59 Wells Criteria for PE - Wells Criteria for Pulmonary Embolism Clinical Signs and Symptoms of DVT: No P.E is #1 Diagnosis, or Equally Likely: No Heart Rate >100: No Immobilization at least 3 days;Surgery previous 4 weeks: No Previous, objectively diagnosed PE or DVT: No Hemoptysis: No Malignancy w/treatment within 6 months, or palliative: No Total Score: 0 Review of Systems ROS Statement: Except As Marked, All Systems Reviewed And Found Negative Respiratory: Positive for: Shortness of Breath, Wheezing Physical Exam - Reviewed Nursing Documentation Reviewed: Yes Vital Signs Reviewed: Yes - Physical Exam Appears: Positive for: Well, Non-toxic, No Acute Distress Head Exam: Positive for: ATRAUMATIC, NORMAL INSPECTION Skin: Positive for: Normal Color, Warm, Dry. Negative for: Diaphoresis, Pallor, Rash Eye Exam: Positive for: Normal appearance, PERRL. Negative for: Nystagmus, Periorbital swelling, Periorbital tenderness Cardiovascular/Chest: Positive for: Regular Rate, Rhythm Respiratory: Positive for: Wheezing (in all four quadrants prior to medication). Negative for: Accessory Muscle Use, Respiratory Distress Pulses-Carotid (L): 2+ Pulses-Carotid (R): 2+ Pulses-Radial (L): 2+ Pulses-Radial (R): 2+ Neurologic/Psych: Positive for: Alert, Oriented - Laboratory Results Result Diagrams: 11/01/18 20:50 11/01/18 20:50 - ECG ECG: Positive for: Interpreted By Me, Viewed By Me ECG Rhythm: Positive for: Normal QRS, Normal ST Segment, Sinus Rhythm O2 Sat by Pulse Oximetry: 96 - Radiology X-Ray: Interpreted by Me X-Ray Interpretation: No Acute Disease, Heart Size (normal without cardiomegally), Other (significant scoliosis concave left) Medical Decision Making Medical Decision Making: R/O CHF over Asthma Exacerbation Labs are sufficient to RO CHF and nebluzier treatment results in relief of pt symptoms. Pt is comfortable and desires to go home Pt request rx of duoneb and home nebulizer Pt urged to return to ED for return or exacerbatin of symptom On Repeat evaluation, the patient appears well, non toxic, with no tachypnea, no retractions, no resp. distress, pulse ox is >97 on room air, repeat lung exam is clear, clinical history and exam not consistent with cardiac or PE, and appears safe/appropriate for discharge and outpatient f/u. s; all patient questions responded to prior to discharge Disposition - Clinical Impression Clinical Impression: Asthma exacerbation - Patient ED Disposition Is Patient to be Admitted: No Doctor Will See Patient In The: Office Counseled Patient/Family Regarding: Studies Performed, Diagnosis, Need For Followup - Disposition Referrals: Chas Rivero MD [Medical Doctor] - Disposition: Routine/Home Disposition Time: 00:22 Condition: STABLE Prescriptions: Albuterol/Ipratropium [Duoneb 3 MG/3 Ml-0.5 MG/3 Ml 3 Ml] 1 ea IH TID PRN #30 neb PRN Reason: Shortness Of Breath Nebulizer [Aeroeclipse II] 1 each MC TID PRN #1 each PRN Reason: Shortness Of Breath Instructions: Asthma in Adults, Asthma, Adult (DC), Avoiding Asthma Triggers, Asthma Action Plan Forms: [employer] (Kazakh)
[2018-11-01] MEDS ORDERED: Albuterol-Ipratrop 3 mg / 0.5 (3 ml) UD ONE (20:40)
[2018-11-01 21:07] LABS: BASO # 0.3 K/uL (0.0-0.2); BASO % 2.1 % (0.0-2.0); EOS # 1.1 K/uL (0.0-0.7); EOS % 8.7 % (0.0-4.0); HEMOGLOBIN 14.8 g/dL (12.0-18.0); LYMPH # 2.8 K/uL (1.0-4.3); LYMPH % 22.2 % (20.0-40.0); MEAN CELL VOLUME 82.7 fl (80.0-94.0); MEAN CORPUSCULAR HEMOGLOBIN 26.6 pg (27.0-31.0); MEAN CORPUSCULAR HGB CONC 32.2 g/dL (33.0-37.0); MEAN PLATELET VOLUME 10.6 fl (7.2-11.7); MONO # 1.6 K/uL (0.0-0.8); MONO % 12.1 % (0.0-10.0); NEUT # 7.1 K/uL (1.8-7.0); NEUT % 54.9 % (50.0-75.0); NRBC % 0.1 % (0.0-0.0); RBC 5.54 Mil/uL (4.40-5.90); RED CELL DISTRIBUTION WIDTH 14.8 % (11.5-14.5); WHITE BLOOD COUNT 12.8 K/uL (4.8-10.8)
[2018-11-01 21:20] LABS: ALB/GLOB RATIO 1.2 (1.0-2.1); ALBUMIN 4.5 g/dL (3.5-5.0); ALT/SGPT 17 U/L (21-72); AST/SGOT 22 U/L (17-59); BLOOD UREA NITROGEN 45 mg/dl (9-20); GFR NON-AFRICAN AMERICAN 38
[2018-11-02 00:11] VITALS: O2SAT 96
[2018-11-02 05:41] VITALS: BP 117/78; PULSE 88; RESP 18; TEMP 98.1
--- NOTE | 2018-11-02 09:05 | RAD ---
Date of service: 11/01/2018 HISTORY: audible wheeze x4 COMPARISON: Chest radiograph dated 07/21/2018. TECHNIQUE: Chest PA and lateral FINDINGS: LUNGS: No active pulmonary disease. PLEURA: No significant pleural effusion identified. No pneumothorax apparent. CARDIOVASCULAR: Aortic atherosclerotic calcifications. Cardiomediastinal silhouette within normal limits. OSSEOUS STRUCTURES: Unchanged. VISUALIZED UPPER ABDOMEN: Normal. OTHER FINDINGS: None. IMPRESSION: No active disease.
--- NOTE | 2018-11-03 10:11 | CARD ---
APPROVED REPORT Date of service: 11/01/2018 EKG Measurement Heart [id number] <Conclusion> Normal sinus rhythm Normal ECG
== END 2018-11-02 00:44 | disposition home or self-care (01) ==
LOC: H.ER 19:55
DX: J45.901 Unspecified asthma with (acute) exacerbation (principal); E11.9 Type 2 diabetes mellitus without complications; E78.00 Pure hypercholesterolemia, unspecified; I10 Essential (primary) hypertension; Z79.84 Long term (current) use of oral hypoglycemic drugs; Z79.899 Other long term (current) drug therapy; Z88.0 Allergy status to penicillin; Z88.1 Allergy status to other antibiotic agents
CPT/HCPCS: 71046; 80053; 83880; 84484; 85025; 87804; 93005; 94640; 96374; 99284; J1100

== ENCOUNTER 2018-11-20 15:51 | Emergency (ER) | payer OTHER ==
[2018-11-20 15:52] VITALS: BMI 25.9
[2018-11-20 16:14] VITALS: BP 127/79; PULSE 81; RESP 18; TEMP 98; O2SAT 96
[2018-11-20] MEDS ORDERED: Albuterol-Ipratrop 3 mg / 0.5 (3 ml) UD INH STA ×2 (18:12→18:13)
[2018-11-20] MEDS ORDERED: Albuterol 0.083% Inhal Sol (2.5 mg/3 mL) UD INH STA ×2 (18:12→19:26)
[2018-11-20] MEDS ORDERED: Albuterol-Ipratrop 3 mg / 0.5 (3 ml) UD ONE (18:45)
[2018-11-20] MEDS ORDERED: Albuterol 0.083% Inhal Sol (2.5 mg/3 mL) UD ONE ×2 (18:51→19:30)
--- NOTE | 2018-11-20 18:52 | ED PDOC ---
HPI: SOB/CHF/COPD Time Seen by Provider: 11/20/18 18:04 Chief Complaint (Nursing): Cough, Cold, Congestion Chief Complaint (Provider): Asthma Exacerbation History Per: Patient History/Exam Limitations: no limitations Onset/Duration Of Symptoms: Days (X3) Current Symptoms Are (Timing): Still Present Additional Complaint(s): 68 year old male with a past medical history of hypertension, diabetes and asthma presents to the ED with worsening asthma exacerbation for the past 3X days. Patient states that he has been using his asthma pump and nebulizer for the past 3 days with no relief, his last treatment was 1X hour prior to arrival. Patient denies any intubation for asthma in the past and does not remember the last time he took steroids for his asthma. Otherwise, patient denies, fever, chest pains, leg swelling, tobacco abuse, prolonged immobility, and recent travel. PMD: Chas Rivero MD Past Medical History Reviewed: Historical Data, Nursing Documentation, Vital Signs Vital Signs: Last Vital Signs Temp 98 F 11/20/18 16:12 Pulse 81 11/20/18 16:12 Resp 18 11/20/18 16:12 BP 127/79 11/20/18 16:12 Pulse Ox 96 11/20/18 16:12 LUIS Report Viewed: Yes - Medical History PMH: Asthma, Diabetes, HTN, Hypercholesterolemia, Pneumonia - Surgical History Surgical History: No Surg Hx - Family History Family History: States: No Known Family Hx - Social History Current smoker - smoking cessation education provided: No - Home Medications Home Medications: Ambulatory Orders Medication Instructions Recorded Albuterol 0.083% [Albuterol 0.083% 3 ml IH Q6H PRN #30 neb 03/18/16 Inhal Dary (2.5 mg/3 ml) UD] Atenolol/Chlorthalidone 1 tab PO DAILY 05/06/17 [Atenolol-Chlorthalidone 50-25] Pravastatin Sodium [Pravachol] 20 mg PO DAILY 05/06/17 metFORMIN [glucOPHAGE] 500 mg PO DAILY 06/15/17 SITagliptin [Januvia] 100 mg PO DAILY #30 tab 06/19/17 Albuterol 0.083% [Albuterol 0.083% 2.5 mg IH Q6 PRN #1 [facility] 08/03/18 Inhal Dary (2.5 mg/3 ml) UD] Azithromycin [Zithromax] 250 mg PO DAILY #6 tab 08/03/18 Dulera 100 Mcg/5 Mcg Inhaler 08/03/18 predniSONE [Prednisone] 40 mg PO DAILY #10 tab 08/03/18 Albuterol 0.083% [Albuterol 0.083% 2.5 mg NEB TID PRN 10 Days neb 09/17/18 Inhal Dary (2.5 mg/3 ml) UD] Albuterol Sulfate [Proair Hfa] 0.09 mg IH Q6H PRN #2 inh 09/17/18 predniSONE [predniSONE Tab] 20 mg PO BID 5 Days tab 09/17/18 Albuterol/Ipratropium [Duoneb 3 1 ea IH TID PRN #30 neb 11/02/18 MG/3 Ml-0.5 MG/3 Ml 3 Ml] Nebulizer [Aeroeclipse II] 1 each MC TID PRN #1 each 11/02/18 Albuterol 0.083% [Albuterol 0.083% 2.5 mg IH Q3 PRN #99 ml 11/20/18 Inhal Dary (2.5 mg/3 ml) UD] Albuterol Sulfate [Ventolin Hfa] 1 puff IH Q4 PRN #1 unit 11/20/18 Prednisone [Deltasone] 2 tab PO DAILY #8 tablet 11/20/18 - Allergies Allergies/Adverse Reactions: Allergies Allergy/AdvReac Type Severity Reaction Status Date / Time ceftriaxone [From Rocephin] Allergy Severe RASH Verified 11/20/18 16:12 Penicillins Allergy RASH Verified 11/20/18 16:12 Review of Systems ROS Statement: Except As Marked, All Systems Reviewed And Found Negative Constitutional: Negative for: Fever Cardiovascular: Negative for: Chest Pain Respiratory: Positive for: Other (worsening asthma exacerbation) Musculoskeletal: Negative for: Other (leg swelling ) Physical Exam - Reviewed Nursing Documentation Reviewed: Yes Vital Signs Reviewed: Yes - Physical Exam Comments: GENERAL APPEARANCE: Patient is awake, alert, oriented x 3, in no acute distress, resting comfortably. SKIN: Warm, dry; (-) cyanosis. EYES: (-) conjunctival injection ENMT: Mucous membranes moist. Airway patent: (-) stridor. Pharynx: clear, uvula midline (-) swelling, (-) erythema. NECK: Supple, FROM (-) JVD CHEST AND RESPIRATORY: (+) bilateral inspiratory wheezing; (-) rales, (-) rhonchi; breath sounds equal bilaterally. Patient speaking in full sentences, respirations even and nonlabored. HEART AND CARDIOVASCULAR: (-) irregularity ABDOMEN AND GI: Soft; (-) tenderness. EXTREMITIES: (-) deformity, (-) edema (-) calf tenderness. NEURO AND PSYCH: Mental status as above; (-) focal findings. Gait: steady. Speech: clear. (-) facial asymmetry (-) aphasia (+) normal cognition - ECG O2 Sat by Pulse Oximetry: 96 (RA) Pulse Ox Interpretation: Normal Medical Decision Making Medical Decision Makin:05 Clinical Impression: 68 year old male presents to the ED with worsening asthma exacerbation Initial Plan: * Albuterol 0.083% Inhal Dary (2.5 mg INH) * Duoneb 3 mL INH x2 * PredniSONE 60 mg PO * Reevaluation 19:25 Upon reevaluation, patient reports having significant improvements in symptoms. Faint inspiratory wheezing noted on exam. Additional Albuterol 2.5mg treatment ordered. 2000 On re-evaluation, patient reports resolution of symptoms. On exam, patient remains AAOx3, in no acute distress. Lungs clear to auscultation, cardiac RRR, repeat neuro exam shows no focal findings. Vitals stable. Lab/Diagnostic results d/w the patient in great detail. Diagnosis of asthma exacerbation, SOB- resolved d/w the patient. Based on history, exam and diagnostic results, plan will be for outpatient follow up with PMD. Patient instructed to follow-up with pmd / referral provided / the clinic in 1- 2 days without fail. Advised to take medication as prescribed. Return to the emergency room at any time for any new or worsening symptoms. Patient states he fully agrees with and understands discharge instructions. States that he agrees with the plan and disposition. Verbalized and repeated discharge instructions and plan. I have given the patient opportunity to ask any additional questions. Scribe Attestation: Documented by Shefali Villarreal, acting as a scribe for Princess Angeles PA-C. Provider Scribe Attestation: All medical record entries made by the Scribe were at my direction and personally dictated by me. I have reviewed the chart and agree that the record a ccurately reflects my personal performance of the history, physical exam, medical decision making, and the department course for this patient. I have also personally directed, reviewed, and agree with the discharge instructions and disposition. Disposition - Clinical Impression Clinical Impression: Asthma exacerbation, Shortness of breath - Patient ED Disposition Is Patient to be Admitted: No Counseled Patient/Family Regarding: Studies Performed, Diagnosis, Need For Followup, Rx Given - Disposition Referrals: Chas Rivero MD [Medical Doctor] - Disposition: Routine/Home Disposition Time: 20:00 Condition: STABLE Additional Instructions: The emergency medical care you received today was directed at your acute symptoms. If you were prescribed any medication, please fill it and take as directed. It may take several days for your symptoms to resolve. Return to the Emergency Department if your symptoms worsen, do not improve, or if you have any other problems. Please contact your doctor in 2 days for re-evaluation and follow up / or call one of the physicians/clinics you have been referred to that are listed on the Patient Visit Information form that is included in your discharge packet. Bring any paperwork you were given at discharge with you along with any medications you are taking to your follow up visit. Our treatment cannot replace ongoing medical care by a primary care provider (PCP) outside of the emergency department. Prescriptions: Albuterol 0.083% [Albuterol 0.083% Inhal Dary (2.5 mg/3 ml) UD] 2.5 mg IH Q3 PRN #99 ml PRN Reason: asthma symptoms Albuterol Sulfate [Ventolin Hfa] 1 puff IH Q4 PRN #1 unit PRN Reason: Shortness Of Breath Prednisone [Deltasone] 2 tab PO DAILY #8 tablet Instructions: Asthma in Adults, Shortness of Breath (Dyspnea) (DC), Avoiding Asthma Triggers, Inhalers Forms: [facility] (Tajik) Print Language: GREEK - POA Present On Arrival: None
== END 2018-11-20 20:06 | disposition home or self-care (01) ==
LOC: H.ER 15:51
DX: J45.901 Unspecified asthma with (acute) exacerbation (principal); R06.02 Shortness of breath; E11.9 Type 2 diabetes mellitus without complications; E78.00 Pure hypercholesterolemia, unspecified; I10 Essential (primary) hypertension; Z79.84 Long term (current) use of oral hypoglycemic drugs; Z88.0 Allergy status to penicillin

== ENCOUNTER 2019-01-17 20:06 | Emergency (ER) | payer OTHER ==
[2019-01-17 20:06] VITALS: BMI 25.9
[2019-01-17 20:14] VITALS: O2SAT 97
[2019-01-17] MEDS ORDERED: Albuterol-Ipratrop 3 mg / 0.5 (3 ml) UD INH STA (20:26)
[2019-01-17] MEDS ORDERED: Albuterol-Ipratrop 3 mg / 0.5 (3 ml) UD ONE (20:32)
--- NOTE | 2019-01-17 21:42 | ED PDOC ---
HPI: SOB/CHF/COPD Time Seen by Provider: 01/17/19 20:20 Chief Complaint (Nursing): Shortness Of Breath Chief Complaint (Provider): Shortness Of Breath History Per: Patient History/Exam Limitations: no limitations Onset/Duration Of Symptoms: Days (x 2) Current Symptoms Are (Timing): Still Present Current Respiratory Medications: Albuterol Additional Complaint(s): 68 year old male with a history of asthma presents to the ED for evaluation of asthma exacerbation that began last night. Patient reports that he used his nebulizer and inhaler, but they only provide short term relief from wheezing. He reports symptoms are similar to previous visits for asthma exacerbation. Denies fever, cough productive of phlegm and leg swelling. PMD: Dr. Chas Rivero Past Medical History Reviewed: Historical Data, Nursing Documentation, Vital Signs Vital Signs: Last Vital Signs Temp 98.8 F 01/17/19 20:11 Pulse 87 01/17/19 20:11 Resp 20 01/17/19 20:39 BP 134/85 01/17/19 20:11 Pulse Ox 97 01/17/19 20:11 Primary Care Provider: Doctor,Conversion - Medical History PMH: Asthma, Diabetes, HTN, Hypercholesterolemia, Pneumonia Denies: HIV, Chronic Kidney Disease - Surgical History Surgical History: No Surg Hx - Family History Family History: States: Unknown Family Hx - Home Medications Home Medications: Ambulatory Orders Medication Instructions Recorded Albuterol 0.083% [Albuterol 0.083% 3 ml IH Q6H PRN #30 neb 03/18/16 Inhal Dary (2.5 mg/3 ml) UD] Atenolol/Chlorthalidone 1 tab PO DAILY 05/06/17 [Atenolol-Chlorthalidone 50-25] Pravastatin Sodium [Pravachol] 20 mg PO DAILY 05/06/17 metFORMIN [glucOPHAGE] 500 mg PO DAILY 06/15/17 SITagliptin [Januvia] 100 mg PO DAILY #30 tab 06/19/17 Albuterol 0.083% [Albuterol 0.083% 2.5 mg IH Q6 PRN #1 neb 08/03/18 Inhal Dary (2.5 mg/3 ml) UD] Azithromycin [Zithromax] 250 mg PO DAILY #6 tab 08/03/18 Dulera 100 Mcg/5 Mcg Inhaler 08/03/18 predniSONE [Prednisone] 40 mg PO DAILY #10 tab 08/03/18 Albuterol 0.083% [Albuterol 0.083% 2.5 mg NEB TID PRN 10 Days neb 09/17/18 Inhal Dary (2.5 mg/3 ml) UD] Albuterol Sulfate [Proair Hfa] 0.09 mg IH Q6H PRN #2 inh 09/17/18 predniSONE [predniSONE Tab] 20 mg PO BID 5 Days tab 09/17/18 Albuterol/Ipratropium [Duoneb 3 1 ea IH TID PRN #30 neb 11/02/18 MG/3 Ml-0.5 MG/3 Ml 3 Ml] Nebulizer [Aeroeclipse II] 1 each MC TID PRN #1 each 11/02/18 Albuterol 0.083% [Albuterol 0.083% 2.5 mg IH Q3 PRN #99 ml 11/20/18 Inhal Dary (2.5 mg/3 ml) UD] Albuterol Sulfate [Ventolin Hfa] 1 puff IH Q4 PRN #1 unit 11/20/18 Prednisone [Deltasone] 2 tab PO DAILY #8 tablet 11/20/18 Albuterol 0.083% [Albuterol 3 ml IH Q4 PRN #50 neb 01/17/19 Sulfate 3 Ml] Prednisone [Deltasone] 60 mg PO DAILY #4 tablet 01/17/19 - Allergies Allergies/Adverse Reactions: Allergies Allergy/AdvReac Type Severity Reaction Status Date / Time ceftriaxone [From Rocephin] Allergy Severe RASH Verified 01/17/19 20:11 Penicillins Allergy RASH Verified 01/17/19 20:11 Review of Systems ROS Statement: Except As Marked, All Systems Reviewed And Found Negative Constitutional: Negative for: Fever Respiratory: Positive for: Shortness of Breath, Wheezing. Negative for: Cough, Sputum Physical Exam - Reviewed Nursing Documentation Reviewed: Yes Vital Signs Reviewed: Yes - Physical Exam Appears: Positive for: Non-toxic, In Acute Distress (mild respiratory distress) Head Exam: Positive for: ATRAUMATIC, NORMOCEPHALIC Skin: Positive for: Warm, Dry Eye Exam: Positive for: EOMI, PERRL ENT: Negative for: Pharyngeal Erythema, Tonsillar Exudate Neck: Positive for: Painless ROM, Supple Cardiovascular/Chest: Positive for: Regular Rate, Rhythm. Negative for: Murmur Respiratory: Positive for: Wheezing (difffuse moderate expiratory wheezing), Respiratory Distress (mild), Other (good air movement). Negative for: Accessory Muscle Use Gastrointestinal/Abdominal: Positive for: Soft. Negative for: Tenderness Back: Positive for: Normal Inspection. Negative for: Decreased ROM Extremity: Negative for: Pedal Edema, Swelling Lymphatic: Negative for: Adenopathy Neurological/Psych: Positive for: Awake, Alert, Normal Tone, Oriented (x 3). Negative for: Motor/Sensory Deficits - ECG ECG: Positive for: Interpreted By Me, Viewed By Me ECG Rhythm: Positive for: Normal QRS, Normal ST Segment, Sinus Rhythm (normal) Rate: 81 O2 Sat by Pulse Oximetry: 97 (RA) Pulse Ox Interpretation: Normal Medical Decision Making Medical Decision Makin:25 Impression: asthma exacerbation Initial Plan: --Duoneb 9 ml INH --Prednisone 60 mg PO --Peak flow pre/post 945p Pt feels better. Stable for dc. --- Scribe Attestation: Documented by Mikala Werner, acting as a scribe for Khushbu Faith MD. Provider Scribe Attestation: All medical record entries made by the Scribe were at my direction and personally dictated by me. I have reviewed the chart and agree that the record accurately reflects my personal performance of the history, physical exam, medical decision making, and the department course for this patient. I have also personally directed, reviewed, and agree with the discharge instructions and disposition. Disposition - Clinical Impression Clinical Impression: Asthma exacerbation - Disposition Referrals: [facility] [Provider Group] - 01/18/19 Disposition: Routine/Home Disposition Time: 21:00 Condition: IMPROVED Prescriptions: Albuterol 0.083% [Albuterol Sulfate 3 Ml] 3 ml IH Q4 PRN #50 neb PRN Reason: asthma Prednisone [Deltasone] 60 mg PO DAILY #4 tablet Instructions: Asthma, Adult (DC)
[2019-01-17 22:44] VITALS: BP 134/76; PULSE 79; RESP 18; TEMP 98.2
== END 2019-01-17 22:44 | disposition home or self-care (01) ==
LOC: H.ER 20:06
DX: J45.901 Unspecified asthma with (acute) exacerbation (principal); E11.9 Type 2 diabetes mellitus without complications; I10 Essential (primary) hypertension; J44.9 Chronic obstructive pulmonary disease, unspecified; Z79.84 Long term (current) use of oral hypoglycemic drugs; Z79.899 Other long term (current) drug therapy; Z88.0 Allergy status to penicillin; E78.00 Pure hypercholesterolemia, unspecified; Z88.1 Allergy status to other antibiotic agents